=== PATIENT | female | born 1950 | race Caucasian/White ===

== ENCOUNTER → 2016-11-24 | Outpatient (REF) | payer MEDICARE, MEDICAID ==
[~2016-11-24] MED LIST: AMBI5TAB; ATEN100T; AVALIDE; AVAP300T; BABY81CH; COLA100C2; HYDR25TA6; NISOLDIPINE; PROZ20CA; SULAR; SYMVASTATIN; TENO100T; ZOCO20TA
[2016-11-24 17:25] LABS: MEAN CORPUSCULAR HGB CONC 34.2 g/dl (32.0-36.5); MEAN CORPUSCULAR VOLUME 87.6 fl (80.0-96.0); RED CELL DISTRIBUTION WIDTH 12.3 % (11.5-14.5); WHITE BLOOD COUNT 8.7 K/mm3 (4.0-10.0)
[2016-11-24 17:33] LABS: ALBUMIN 3.7 GM/DL (3.2-5.2); ALKALINE PHOSPHATASE 205 U/L (45-117); ALT/SGPT 29 U/L (12-78); ANION GAP 11 MEQ/L (8-16); AST/SGOT 25 U/L (15-37); BLOOD UREA NITROGEN 12 MG/DL (7-18); CALCIUM LEVEL 10.2 MG/DL (8.8-10.2); CARBON DIOXIDE LEVEL 27 MEQ/L (21-32); CHLORIDE LEVEL 99 MEQ/L (98-107); CHOLESTEROL LEVEL 176 MG/DL (<200); CREATININE FOR GFR 0.91 MG/DL (0.55-1.02); GLOMERULAR FILTRATION RATE > 60.0 (>45); GLUCOSE, FASTING 82 MG/DL (80-110); POTASSIUM SERUM 4.3 MEQ/L (3.5-5.1); SODIUM LEVEL 137 MEQ/L (136-145); TOTAL PROTEIN 7.4 GM/DL (6.4-8.2); TRIGLYCERIDES LEVEL 154 MG/DL (<150)
== END ==
LOC: M SFHCLERA 12:29
PROVIDERS: ATTEND Family Medicine
DX: I10 Essential (primary) hypertension (principal); R79.89 Other specified abnormal findings of blood chemistry; E55.9 Vitamin D deficiency, unspecified

== ENCOUNTER → 2016-11-24 | Outpatient (CLI) | payer MEDICARE, MEDICAID ==
--- NOTE | 2016-11-24 13:31 | REP ---
LUMBAR SPINE SERIES: SIX VIEWS. History: Worsening low back pain. No comparison radiographs. Comparison CT images are from March 14, 2015. Findings: Lumbar vertebral body heights are preserved. Pedicles and posterior elements are intact. There is degenerative disc narrowing at L4-5 and L5-S1. A grade 1 2 mm L4-5 spondylolisthesis is seen unchanged from the CT study. No evidence of spondylolysis is seen. There is mild degenerative disc changes at L3-4, L1-2, and T12-L1. There is osteoarthritic facet hypertrophy bilaterally at L4-5 and to some degree at L5-S1. Sacrum and SI joints are intact. The visualized bowel gas pattern is normal. Psoas margins are symmetric. Impression: Degenerative disc and osteoarthritic facet changes at L4-5 and L5-S1. There is a grade 1 2 mm L4-5 degenerative spondylolisthesis without spondylolysis. Signed by Silvano Rodriguez MD 11/24/2016 03:59 P
== END ==
LOC: M LRY 12:33
PROVIDERS: ATTEND Family Medicine
DX: M51.36 Other intervertebral disc degeneration, lumbar region (principal); M51.37 Other intervertebral disc degeneration, lumbosacral region; M43.16 Spondylolisthesis, lumbar region; M47.816 Spondylosis without myelopathy or radiculopathy, lumbar region; M47.817 Spondylosis without myelopathy or radiculopathy, lumbosacral region; I10 Essential (primary) hypertension; R79.89 Other specified abnormal findings of blood chemistry; E55.9 Vitamin D deficiency, unspecified

== ENCOUNTER 2016-12-27 10:53 | Inpatient (IN) | payer MEDICARE, MEDICAID ==
[~2016-12-27] VITALS: Ht 160 cm; Wt 87.1 kg
[2016-12-27 12:04] LABS: MEAN CORPUSCULAR HEMOGLOBIN 28.6 pg (27.0-33.0); MEAN CORPUSCULAR HGB CONC 34.8 g/dl (32.0-36.5); MEAN CORPUSCULAR VOLUME 81.9 fl (80.0-96.0); RED CELL DISTRIBUTION WIDTH 12.8 % (11.5-14.5); WHITE BLOOD COUNT 12.9 K/mm3 (4.0-10.0)
[2016-12-27 12:34] LABS: ALBUMIN 3.4 GM/DL (3.2-5.2); ALBUMIN/GLOBULIN RATIO 0.69 (1.00-1.93); ALKALINE PHOSPHATASE 193 U/L (45-117); ALT/SGPT 17 U/L (12-78); AST/SGOT 26 U/L (15-37); BILIRUBIN,DIRECT 0.2 MG/DL (0.0-0.2); BILIRUBIN,TOTAL 1.1 MG/DL (0.2-1.0); BLOOD UREA NITROGEN 27 MG/DL (7-18); CARBON DIOXIDE LEVEL 23 MEQ/L (21-32); CHLORIDE LEVEL 94 MEQ/L (98-107); CREATININE FOR GFR 1.31 MG/DL (0.55-1.02); GLOMERULAR FILTRATION RATE 43.4 (>45); GLUCOSE, FASTING 106 MG/DL (80-110); TOTAL PROTEIN 8.3 GM/DL (6.4-8.2)
[2016-12-27 12:53] LABS: ANION GAP 16 MEQ/L (8-16); SODIUM LEVEL 133 MEQ/L (136-145)
[2016-12-27 13:01] LABS: CALCIUM LEVEL 14.9 MG/DL (8.8-10.2)
[2016-12-27 13:24] LABS: AMPHETAMINES LEVEL URINE NEGATIVE (NEGATIVE); BENZODIAZEPINES URINE NEGATIVE (NEGATIVE); COCAINE METABOLITE URINE NEGATIVE (NEGATIVE); CONTROL LINE INT CTR LINE PRESENT; METHADONE URINE NEGATIVE (NEGATIVE); OPIATES URINE NEGATIVE (NEGATIVE); TRICYCLIC ANTIDEPRESS URINE NEGATIVE (NEGATIVE)
--- NOTE | 2016-12-27 13:35 | REP ---
CT BRAIN WITHOUT CONTRAST: 12/27/2016. Clinical history: Altered mental status. Findings: There were no prior pertinent studies ventricles are midline, symmetric and show mild dilatation of the lateral ventricles but no displacement. There is atrophy in proportion greatest in the temporal lobes and frontal lobes. I see no vascular territory infarct, hemorrhage, mass or mass effect. Basal cisterns and basal ganglia are preserved. Cortical stripe shows atrophy, but no other finding. The brainstem was unremarkable. Cerebellum intact. The mastoids and sinuses were clear. Skull base was unremarkable. The calvarium shows multiple scattered lucencies throughout with fairly sharply defined margins and some honeycomb appearance within some of the lesions, others not. Impression: 1. No intracranial hemorrhage, acute infarct, mass or edema. Some mild atrophy with ventricular size in proportion. 2. Brainstem and cerebellum intact. Basal cisterns intact with sinuses and mastoids clear. 3. There are multiple lucencies in the skull with irregular margins. These are not expansile there were no soft tissue components. Some have internal architecture. Findings may reflect myeloma, hemangioma or lytic skull metastases. No intracranial lesion or other significant finding. Evaluate for serum protein abnormalities. If elevated, bone survey may be helpful. Signed by Flaco Betts MD 12/27/2016 07:37 P
[2016-12-27] MEDS ORDERED: POTASSIUM CHLORIDE 10 MEQ SR TABLET As Ordered ONE ×2 (13:44→14:35)
[2016-12-27] MEDS ORDERED: FLUO40CA PO (14:19)
[2016-12-27] MEDS ORDERED: DRIS50002 PO (14:19)
[2016-12-27] MEDS ORDERED: ASPI1TAB PO (14:19)
[2016-12-27] MEDS ORDERED: TIZA4CAP3 PO (14:19)
[2016-12-27] MEDS ORDERED: GABA300C3 PO (14:19)
[2016-12-27] MEDS ORDERED: CALCTAB68 PO (14:19)
[2016-12-27] MEDS ORDERED: ATEN100T PO (14:19)
[2016-12-27] MEDS ORDERED: HYDR-4274 PO (14:19)
[2016-12-27] MEDS ORDERED: SIMV20TA2 PO (14:19)
[2016-12-27] MEDS ORDERED: LOSA100T36 PO (14:19)
[2016-12-27] MEDS ORDERED: ATOM60CA PO (14:19)
[2016-12-27] MEDS ORDERED: POTA20TA PO (14:19)
[2016-12-27] MEDS ORDERED: ZETI10TA2 PO (14:19)
[2016-12-27] MEDS ORDERED: FISH1000 PO (14:19)
[2016-12-27] MEDS ORDERED: AMIL5TA PO (14:19)
[2016-12-27] MEDS ORDERED: CHLO25TA PO (14:19)
[2016-12-27] MEDS ORDERED: AMLO5TAB2 PO (14:19)
[2016-12-27] MEDS ORDERED: amLODIPine 5 MG TAB As Ordered ONE (14:36)
[2016-12-27] MEDS ORDERED: ONDANSETRON 4MG/2ML VIAL (J2405) IV PRN (14:45)
[2016-12-27] MEDS ORDERED: MORPHINE 2 MG/ML 1ML SYRINGE IV PRN (14:45)
--- NOTE | 2016-12-27 14:45 | REP ---
AP PORTABLE CHEST: 12/27/2016. Clinical history: Confusion. Findings: There were no prior studies. Lungs are well inflated. There is no pleural effusion, lateral pleural thickening apical scarring or pneumothorax. Some underlying interstitial fibrotic changes mid and lower lung zones noted. Heart size not enlarged for portable technique. No pulmonary edema. No definite effusion. Visualized bones without focal lesion. Signed by Flaco Betts MD 12/27/2016 07:40 P
--- NOTE | 2016-12-27 15:10 | HPEPDOC ---
Medical History and Physical Date of Admission 12/27/16 History and Physical PRIMARY CARE PROVIDER: ATTENDING: Robles Harper M.D. CHIEF COMPLAINT: Generalized weakness and change in mental status HISTORY OF PRESENT ILLNESS: This is a 66-year-old female past medical history of hypertension, fibromyalgia , hyperlipidemia who presents with altered mental status and generalized weakness. Patient states she initially developed 5 mechanical falls 2 months ago. With no loss of consciousness. States she was doing some housework and started to develop back pain that was diffuse throughout the entire spine. No focal weakness. Patient then started to develop difficulty with mobility. She also started to complain of increased lower back pain/rib pain over the past 2 weeks , had presented to her primary doctor who prescribed gabapentin and tizanidine. Started to become increasingly lethargic with the tizanidine and gabapentin. Daughters at bedside state that over the past week the patient has been having auditory and visual hallucinations. She's been having angry outbursts. Constipated and complaining of chills. No chest pain/shortness of breath/palpitations. Nausea and nonbilious nonbloody vomiting at times. No diarrhea. Positive constipation. PAST MEDICAL HISTORY: As per HPI PAST SURGICAL HISTORY: Hysterectomy, appendectomy, tubal ligation SOCIAL HISTORY: History of tobacco abuse however quit 40 years ago. Occasional alcohol. No illicit drug use. FAMILY HISTORY: Mother with CVA father with rheumatic heart disease ALLERGIES: Please see below. REVIEW OF SYSTEMS: HEENT: Denies sore throat/headache CARDIOVASCULAR: Denies chest pain/palpitations RESPIRATORY: No shortness of breath/cough GASTROINTESTINAL: denies nausea/vomiting GENITOURINARY: Denies dysuria/urinary urgency. MUSCULOSKELETAL: Denies myalgias/arthralgias NEUROLOGICAL: Denies any focal weakness. + generalized weakness Rest of ROS negative. HOME MEDICATIONS: Please see below. PHYSICAL EXAMINATION: Vitals: (see below) General: No acute distress, laying comfortably in bed. HEENT: Dry mucous membranes. Neck: Mild JVD. No LAD. Cardiac: RRR, No murmurs Pulm: Clear to auscultation b/l. No wheezing, rhonchi Abd: NT/ND + BS Ext: No edema or cyanosis Neuro: Strength 5/5 BUE and BLE. CN 2-12 intact. Negative Babinki. DTR 2+ throughout LABORATORY DATA: See below. IMAGING: CT head on 12/27/16 Impression: 1. No intracranial hemorrhage, acute infarct, mass or edema. Some mild atrophy with ventricular size in proportion. 2. Brainstem and cerebellum intact. Basal cisterns intact with sinuses and mastoids clear. 3. There are multiple lucencies in the skull with irregular margins. These are not expansile there were no soft tissue components. Some have internal architecture. Findings may reflect myeloma, hemangioma or lytic skull metastases. No intracranial lesion or other significant finding. Evaluate for serum protein abnormalities. If elevated, bone survey may be helpful. Chest x-ray on 12/27/16 Findings: There were no prior studies. Lungs are well inflated. There is no pleural effusion, lateral pleural thickening apical scarring or pneumothorax. Some underlying interstitial fibrotic changes mid and lower lung zones noted. Heart size not enlarged for portable technique. No pulmonary edema. No definite effusion. Visualized bones without focal lesion. MICROBIOLOGY: Please see below. ASSESSMENT/PLAN: Severe hypercalcemia with psychosis and hallucinations - patient has been on calcium and vitamin D supplementation as well as chlorthalidone however states she has not taken her calcium and vitamin D and some time. There was concern for malignancy given the hypercalcemia with associated multiple lucencies within the skull. We will start normal saline IV fluids with aggressive hydration, will need calcitonin and possibly Lasix. I spoke to Dr. Negrete hole be assisting in the management this patient. We'll also obtain urine studies, SPEP and UPEP. Whole-body skeletal scan. Back pain- very nonspecific with no focal deficits on exam. Questionable whether patient has lucencies. We'll follow-up with skeletal survey. If negative, will likely need CAT scans of the spine. Hypokalemia- replaced Acute kidney injury- we'll hold losartan and chlorthalidone. IV fluids. Urine studies. Hypertension- increased amlodipine, hold losartan and chlorthalidone. Continue the rest of the meds. Nonspecific ST-T wave changes on EKG- no acute OR. We'll trend cardiac markers. No chest pain. Elevated JVD- we'll obtain echocardiogram. No history of heart failure. DVT prophylaxis- heparin subcutaneous Patient followed by Dr. Elizabeth starting 12/28/16 at 7 AM. Vital Signs Blood pressure 180/88, heart rate 89, respiratory rate 17, afebrile, oxygen saturation 97% on room air. Laboratory Data Labs 24H Laboratory Tests 2 12/27/16 11:41: Acetaminophen Level < 2.0L, Aspartate Amino Transf (AST/SGOT) 26, Alanine Aminotransferase (ALT/SGPT) 17, Alkaline Phosphatase 193H, Total Bilirubin 1.1H , Direct Bilirubin 0.2, Albumin 3.4, Albumin/Globulin Ratio 0.69L, Anion Gap 16 , Calcium Level 14.9*H, Creatine Kinase MB 1.5, Creatine Kinase MB Relative Index 2.38, Ethyl Alcohol Level < 0.003, Glomerular Filtration Rate 43.4L, Salicylates Level < 1.7L, Thyroid Stimulating Hormone (TSH) 1.630, Total Creatine Kinase 63, Total Protein 8.3H, Troponin I 0.07, Uric Acid 9.9H 12/27/16 13:05: Urine Amphetamine Level NEGATIVE, Urine Benzodiazepines Screen NEGATIVE, Urine Cannabinoids NEGATIVE, Urine Cocaine Metabolite NEGATIVE, Urine Opiates Screen NEGATIVE, Urine Barbiturates, Qualitative NEGATIVE, Urine Methadone Screen NEGATIVE, Urine Tricyclic Antidepressants NEGATIVE CBC/BMP Laboratory Tests 12/27/16 11:41 Red Blood Count 5.06, Mean Corpuscular Volume 81.9, Mean Corpuscular Hemoglobin 28.6, Mean Corpuscular Hemoglobin Concent 34.8, Red Cell Distribution Width 12.8 Home Medications Scheduled Amiloride HCl (Amiloride HCl) 5 Mg Tab 5 MG PO DAILY Amlodipine Besylate (Amlodipine Besylate) 5 Mg Tab 5 MG PO DAILY Aspirin (Aspirin 81) 81 Mg Tab 81 MG PO Q2D Atenolol (Atenolol) 100 Mg Tab 100 MG PO BID Atomoxetine Hydrochloride (Strattera) 60 Mg Cap 60 MG PO DAILY Calcium/Vitamin D (Calcium 600 + D 600-400 mg-Unit) 1 Tab Tab 2 TAB PO BID Chlorthalidone (Chlorthalidone) 25 Mg Tab 25 MG PO DAILY Ezetimibe (Zetia) 10 Mg Tab 10 MG PO QHS Fish Oil (Fish Oil) 1,000 Mg Cap 1,000 MG PO TID Fluoxetine Hcl (Fluoxetine HCl) 40 Mg Cap 40 MG PO DAILY Gabapentin (Gabapentin) 300 Mg Cap 300 MG PO QHS Losartan Potassium (Losartan Potassium) 100 Mg Tab 100 MG PO DAILY Potassium Chloride (Klor-Con M20) 20 Meq Tabcr 20 MEQ PO DAILY Simvastatin (Simvastatin) 20 Mg Tab 20 MG PO QHS Vitamin D (Drisdol) 50,000 Unit Cap 50,000 UNIT PO QWEEK Scheduled PRN Hydroxyzine HCl (Hydroxyzine HCl) 50 Mg Tab 50 MG PO TID PRN PRN ANXIETY Tizanidine Hydrochloride (Tizanidine HCl) 4 Mg Cap 4 MG PO Q8H PRN PRN SPASMS Allergies Coded Allergies: Metronidazole (Verified Allergy, Unknown, 02/16/13) Sulfa Drugs (Unverified Allergy, Unknown, 02/16/13) ROBLES HARPER MD Dec 27, 2016 15:10 ROBLES HARPER MD Dec 27, 2016 15:10
[2016-12-27] MEDS ORDERED: FUROSEMIDE 40 MG/4 ML VIAL (J1940) IV ONE (15:30)
[2016-12-27] MEDS ORDERED: **hydrALAZINE** 50 MG TAB PO ONE (15:30)
[2016-12-27] MEDS ORDERED: hydrALAZINE INJ 20 MG/ML VIAL IV ONE (15:30)
[2016-12-27 15:31] LABS: IONIZED CALCIUM 7.2 MG/DL (4.5-5.3)
[2016-12-27 16:09] LABS: TOTAL PROTEIN 7.4 GM/DL (6.4-8.2)
[2016-12-27] MEDS ORDERED: hydrALAZINE INJ 20 MG/ML VIAL IV PRN (16:45)
[2016-12-27] MEDS ORDERED: ZOLEDRONIC ACID IV ONE (17:00)
[2016-12-27] MEDS ORDERED: DILUENT IV ONE (17:00)
[2016-12-27 17:15] VITALS: BP 138/71
[2016-12-27 17:22] LABS: CREATININE FOR GFR 1.17 MG/DL (0.55-1.02); GLOMERULAR FILTRATION RATE 49.4 (>45); POTASSIUM SERUM 3.4 MEQ/L (3.5-5.1)
[2016-12-27 17:27] LABS: CALCIUM LEVEL 14.9 MG/DL (8.8-10.2)
[2016-12-27] MEDS: KCL 20MEQ in NS 1000ML 1,000 ML IV SCH (18:00)
[2016-12-27] MEDS ORDERED: ZOLEDRONIC ACID 4 MG in D5W 100 ML IV ONE (18:00)
[2016-12-27] MEDS ORDERED: SODIUM CHLORIDE 0.9% 1000 ML IV ONE (18:00)
[2016-12-27] MEDS ORDERED: KCL 20MEQ IN 0.9 NS 1000 ML BAG As Ordered ONE (18:18)
[2016-12-27 19:00] VITALS: BP 142/68
--- NOTE | 2016-12-27 20:42 | CR ---
DATE OF CONSULTATION: 12/27/2016 REQUESTING PHYSICIAN: Dr. Eduard Harper CONSULTING PHYSICIAN: Dr. Negrete REASON FOR CONSULTATION: Acute kidney injury, hypercalcemia, and hypokalemia. CHIEF COMPLAINT: Generalized weakness and altered mental status. HISTORY OF PRESENT ILLNESS: History was obtained from the medical team and from the patient's chart. The patient is unable to provide any reliable history at this time. Ms. Katlin Cates is a 66-year-old female with a past medical history of hypertension, fibromyalgia, hyperlipidemia. She was brought in by the family members today because of progressive confusion, some auditory and visual hallucinations, constipation, having angry outbursts for the last few days. She was also having chills. The patient also reported severe upper back pain for the last two weeks almost, which is progressively getting worse. She was unable to move around at this time because of this pain. She was also given gabapentin and tizanidine by the primary care provider, which was not helping with the pack pain. The patient also reported about five mechanical falls about two months ago. The patient denies any history of malignancy. She is not up to date for her age appropriate cancer screening. She has not had a mammogram, Pap smear, or any body imaging in many years. On initial triage laboratories, the patient was found to have a sodium of 133, potassium 3, and serum calcium was 14.9 with an ionized calcium of 7.2. A CAT scan done in the emergency room showed multiple lucencies in the skull with irregular margins, suspicious for malignancy. Nephrology service consult was requested for management of acute renal failure and hypercalcemia. The patient has been started on intravenous fluid hydration. When I saw the patient, she was awake. She tries to respond to some questions. She is otherwise in no apparent distress at this time. PAST MEDICAL HISTORY: As mentioned above, she has a history of: 1. Hypertension. 2. Fibromyalgia. 3. Hyperlipidemia. PAST SURGICAL HISTORY: Status post hysterectomy, appendectomy, and tubal ligation in the past. ALLERGIES: The patient is allergic to SULFA DRUGS and FLAGYL. HOME MEDICATIONS: The patient's home medications include: - amiloride 5 mg by mouth daily - amlodipine 5 mg daily - aspirin 81 mg daily - atenolol 100 mg twice a day - atomoxetine 60 mg daily - calcium plus vitamin D two tablets by mouth twice a day - chlorthalidone 25 mg by mouth daily - Zetia 10 mg by mouth at night - fish oil 1 gram by mouth three times a day - fluoxetine 40 mg daily - gabapentin 300 mg at night - hydroxyzine 50 mg three times a day as needed - losartan 100 mg by mouth daily - potassium chloride 20 mEq by mouth daily - simvastatin 20 mg by mouth at night - tizanidine 4 mg by mouth every 4 hours as needed - vitamin D 50,000 units once a week FAMILY HISTORY: No significant family history of end stage renal disease requiring hemodialysis. Her mother had a stroke and her father had rheumatic artery disease. SOCIAL HISTORY: The patient quit smoking 40 years ago. Denies any alcohol abuse or drug abuse. REVIEW OF SYSTEMS: CONSTITUTIONAL: The patient reports generalized weakness, inability to walk because of severe pain. EYES: She denies any blurry vision or double vision. ENT: She denies any dysphagia or odynophagia or ear discharge. CARDIOVASCULAR: She denies any chest pain or palpitations. RESPIRATORY: She denies any shortness of breath or wheezing. GASTROINTESTINAL: The patient reports constipation and decreased appetite. GENITOURINARY: She denies any dysuria or hematuria. MUSCULOSKELETAL: The patient reports muscle aches and pains and weakness. NEUROLOGIC: The patient denies any history of strokes, but she did report generalized weakness. PSYCHIATRIC: The patient has a history of depression and outbursts. HEMATOLOGIC/ONCOLOGIC: The patient denies any history of malignancy in the past. SKIN: She denies any history of rashes or ulcers. All other review of systems is negative. PHYSICAL EXAMINATION: GENERAL: The patient is awake, alert, oriented times two. Sitting in bed in no apparent distress. VITAL SIGNS: Temperature is 99 degrees Fahrenheit. Blood pressure is 138/71, pulse is 82, respiratory rate of 18, saturating 98% on room air. HEAD AND NECK EXAM: Extraocular muscles intact. Pupils are equal, round and reactive to light. Mucous membranes are dry. NECK: Supple. There is no jugular venous distention (JVD). CARDIOVASCULAR: S1, S2. Regular rate. No murmur, rub or gallop. RESPIRATORY: Chest is clear to auscultation bilaterally. Bilateral equal air entry. No rales or rhonchi. BREAST EXAM: The patient's breast exam was done in the presence of the patient' s registered nurse. There was slight erythema on the left breast, otherwise no significant breast masses were palpable. ABDOMEN: Soft. Positive bowel sounds. Nontender. No ascites. No organomegaly. EXTREMITIES: No clubbing or cyanosis. No edema. NEUROLOGIC: Power is 5/5 in all extremities, but the patient is slightly confused at this time. SKIN: No rashes or ulcers. LABORATORY REVIEW: Complete blood count (CBC) showed a WBC of 12.9, hemoglobin 14.4, platelets of 367. Basic metabolic panel (BMP) showed sodium 133, potassium 3.0, chloride 94, bicarbonate 23, BUN is 27, creatinine is 1.31, uric acid is 9.9, calcium is 14.1 , ionized calcium was 7.2. Total bilirubin is 1.1. Total protein is 8.3. Albumin is 3.4. Vitamin D is pending. TSH is 1.63, PTH is pending. Urine toxicology screen is negative. IMAGING: A CAT scan of the head done today showed no intracranial hemorrhage, infarct or mass. There were multiple lucencies in the skull with irregular margins, which was suspicious for multiple myeloma or lytic skull metastases. CURRENT INPATIENT MEDICATIONS: The patient's current inpatient medications were all reviewed by me. ASSESSMENT: 66-year-old female with a past medical history of hypertension, fibromyalgia, hyperlipidemia, admitted this time with psychosis, hallucinations, severe hypercalcemia with possible malignancy given her recent CAT scan findings. Nephrology service following the patient for acute kidney injury and hypercalcemia. PLAN: 1. Hypercalcemia. Although the patient was on diuretics, calcium and vitamin D supplements, as reported by the family, the patient was not taking the vitamin D can calcium at this time. Given the patient's severe hypercalcemia and the presence of translucencies on the CAT scan of the head, malignancy is highly likely. I am going to start the patient on normal saline at 200 mL an hour plus 20 mEq of KCL. I will not give Lasix to this patient at this time because of dehydration and dry mucous membranes. Continue BMP every 6 hours. I am also starting calcitonin 350 International Units subcutaneous every 12 hours, and I will given a dose of zoledronic acid 4 mg IV times one dose to this patient as well. I see that the primary team has already ordered the SPEP and UPEP, which are pending. PTH level and vitamin D levels are still pending as well. 2. Acute kidney injury. Acute kidney injury is secondary to hypercalcemia and dehydration and use of losartan at home. Losartan has been held at this time. Continue the IV fluid hydration. 3. Hypokalemia. Hypokalemia is secondary to dehydration and use of diuretics at home. I have added the potassium to IV fluids that the patient will get. No need for oral potassium at this time. The patient has already been given potassium chloride 40 mEq by mouth by the primary team. 4. Hyperuricemia. There is no history of gout in this patient. Hyperuricemia might be secondary to dehydration and possible malignancy as well. Uric acid level is 9.9. I will not start Uloric at this time; however, if the malignancy is confirmed and we start treatment for malignancy in this patient then we might have to start uric acid lowering therapy in this patient. 5. Hypertension. The patient's manual and automatic machine blood pressures defer. I recommend continue monitoring the manual blood pressure on this patient, which is acceptable at this time. Continue to hold losartan for now. Continue amlodipine 10 mg by mouth daily, atenolol 100 mg by mouth twice a day, hydralazine 25 mg by mouth every 8 hours. I have also ordered hydralazine 10 mg IV every 6 hours as needed for systolic blood pressure more than 170. Thank you for involving us in the care of this patient. We shall be happy to follow the patient along with you tomorrow morning. Plan of care was discussed with the patient's RN at the bedside. I will be called with serial BMPs on this patient. I also discussed the patient with the primary hospitalist, Dr. Eduard Harper. MELA
[2016-12-27 21:00] VITALS: BP 132/78
[2016-12-27] MEDS ORDERED: **hydrALAZINE HCL** 25 MG TAB As Ordered ONE (21:01)
[2016-12-27] MEDS: SIMVASTATIN 20 MG TAB PO SCH (21:16)
[2016-12-27] MEDS: ATENOLOL 50 MG TAB PO SCH (21:16)
[2016-12-27] MEDS: CALCITONIN SALMON (MIACALCIN) 400INTERNATIONAL UNITS/2ML INJ (J0630) SQ SCH (21:16)
[2016-12-27] MEDS: **hydrALAZINE HCL** 25 MG TAB PO SCH (21:17)
[2016-12-27] MEDS: OMEGA-3 1050MG CAPSULE PO SCH (21:17)
[2016-12-27] MEDS: EZETIMIBE 10 MG TAB (ZETIA) PO SCH (21:17)
[2016-12-27 23:35] LABS: CALCIUM LEVEL 13.1 MG/DL (8.8-10.2); CREATININE FOR GFR 1.05 MG/DL (0.55-1.02); POTASSIUM SERUM 3.4 MEQ/L (3.5-5.1)
[2016-12-28] VITALS (7 sets, daily range): BP systolic 144–178; BP diastolic 70–89; PULSE 80–82
[2016-12-28] MEDS ORDERED: KCL 20MEQ IN 0.9 NS 1000 ML BAG As Ordered ONE (00:38)
[2016-12-28] MEDS: KCL 20MEQ in NS 1000ML 1,000 ML IV SCH ×5 (00:40→20:34)
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
--- NOTE | 2016-12-28 02:43 | EDDOCDS ---
Physician Documentation [facility] Name: Katlin Cates Age: 66 yrs Sex: Female : 1950 Arrival Date: 12/27/2016 Time: 10:53 Bed Admit Hold Private MD: Disposition: 12/27/16 13:45 Hospitalization ordered by Eduard Harper for Inpatient Admission. Preliminary diagnosis is Altered mental status, unspecified - with abnormal CT head. - Bed requested for PCU. - Status is Inpatient Admission. sls1 - Condition is Stable. - Problem is new. - Symptoms are unchanged. Historical: - Allergies: Flagyl; SULFA (SULFONAMIDES); - Home Meds: 1. aspirin 81 mg Oral tab 1 tab once daily 2. Fish Oil 1,000 mg Oral cap three times a day 3. potassium chloride 20 mEq Oral TbER 1 tab once daily 4. Zocor 20 mg Oral tab 1 tab once daily 5. Calcium + Vitamin D 600 mg calcium- 200 unit Oral tab 2 tab twice a day 6. Strattera 60 mg oral cap 1 cap once daily 7. hydroxyzine HCl 50 mg Oral tab 1 tab three times a day as needed 8. chlorthalidone 25 mg Oral tab 1 tab once daily 9. amiloride 5 mg oral tab 1 tab once daily 10. atenolol 100 mg Oral tab 1 tab twice a day 11. losartan 100 mg oral tab 1 tab once daily 12. fluoxetine 40 mg Oral cap 1 cap once daily 13. Norvasc 5 mg Oral tab 1 tab once daily 14. Zetia 10 mg Oral tab 1 tab once daily 15. gabapentin 300 mg Oral cap 1 cap twice a day 16. Vitamin D Oral 50,000 unit weekly 17. tizanidine 4 mg oral tab 1 tab every 8 hours - PMHx: Hypertension; Hypercholesterolemia; Depression; Anxiety; Fibromyalgia; ADHD; - PSHx: Hysterectomy; Appendectomy; Tubal ligation; - Social history: Smoking status: Patient states former smoker of tobacco. No barriers to communication noted, The patient speaks fluent Romanian, Speaks appropriately for age. - : The pt / caregiver states he / she is not on anticoagulants. Home medication list is obtained from a discharge med list. - Exposure Risk Screening:: None identified. Vital Signs: 12/27 11:05 BP 180 / 88; Pulse 89; Resp 18; Temp 97.6(O); Pulse Ox 97% on R/A; Weight 88 kg / kc3 194.01 lbs (R); Height 5 ft. 6 in. (167.64 cm); Pain 0/10; 11:17 BP 181 / 87 (auto/); hs1 11:17 Pulse 80 MON; Pulse Ox 99% ; hs1 11:32 BP 166 / 85 (auto/); hs1 11:32 Pulse 80 MON; Pulse Ox 99% ; hs1 11:47 BP 173 / 84 (auto/); hs1 11:47 Pulse 74 MON; Pulse Ox 98% ; hs1 12:02 BP 169 / 81 (auto/); hs1 12:02 Pulse 78 MON; Pulse Ox 99% ; hs1 12:16 Pulse 78 MON; Pulse Ox 98% ; hs1 12:17 BP 169 / 81 (auto/); hs1 12:31 Pulse 72 MON; Pulse Ox 98% ; hs1 12:32 BP 166 / 78 (auto/); hs1 12:43 Pulse 82 MON; Pulse Ox 97% ; hs1 13:01 BP 188 / 87 (auto/); hs1 13:31 BP 170 / 83 (auto/); hs1 13:31 Pulse 78 MON; Pulse Ox 95% ; hs1 14:01 BP 185 / 88 (auto/); hs1 14:01 Pulse 80 MON; Pulse Ox 100% ; hs1 14:30 Pulse 76 MON; Pulse Ox 98% ; hs1 14:31 BP 198 / 90 (auto/); hs1 15:00 Pulse 74 MON; Pulse Ox 97% ; hs1 15:01 BP 197 / 132 (auto/); hs1 15:17 Pulse 80 MON; Pulse Ox 99% ; hs1 15:18 BP 171 / 80 (auto/); hs1 15:30 Pulse 70 MON; Pulse Ox 97% ; hs1 15:31 BP 182 / 86 (auto/); hs1 16:00 Pulse 76 MON; Pulse Ox 98% ; hs1 16:01 BP 182 / 81 (auto/); hs1 16:12 BP 156 / 78 LA (man/lg); rn1 17:14 Temp 99.0(T); rn1 12/28 01:07 BP 146 / 80; Pulse 75; Resp 18; Temp 97.9; Pulse Ox 96% on R/A; [facility] 12/27 11:05 Body Mass Index 31.31 (88.00 kg, 167.64 cm) kc3 MDM: 12/27 11:11 Consult PFS/PSA/Open Soaper Tender ordered. ml 11:11 Consult PFS/PSA/Open Soaper Tender: Patient's case requires discussion with on-call ml Psychiatrist ordered. 11:11 PSA/PFS to call Nursing Forest Management Professor, to enter patient data on [place] Safe [place] if patient ml involuntarily admitted or transferred for SI or HI ordered. 11:11 Reach Lift Truck Driver/Pulse Ox/q 15 min VS ordered. ml 11:11 Confirm accurate psychiatric medication list and times of last dosage ordered. ml 11:11 Detain Pt Until Medically/PFS Cleared ordered. ml 11:11 IV Saline Lock ordered. ml 11:11 Rhythm Strip to chart ordered. ml 11:12 Acetaminophen Level Ordered. EDMS 11:12 Basic Metabolic Profile Ordered. EDMS 11:12 Complete Blood Count Ordered. EDMS 11:12 Drug Eval Toxicology ED Only Ordered. EDMS 11:12 Ethyl Alcohol (ethanol) Ordered. EDMS 11:12 Liver Profile Ordered. EDMS 11:12 Salicylate Level Ordered. EDMS 11:12 Thyroid Stimulating Hormone Ordered. EDMS 11:12 ECG WITH READING ER PHYS+CARDIAG ordered. EDMS 11:12 CT Head Without Contrast Ordered. EDMS 11:27 Financial registration complete. mm15 11:40 Call Poison Control ordered. ml 11:54 [facility] Payment Agreement was scanned into [employer] and attached to record. mm15 12:14 CARDIAC INJURY PROFILE Ordered. EDMS 12:14 TROPONIN Ordered. EDMS 13:18 Acetaminophen Level Reviewed. ml 13:18 Basic Metabolic Profile Reviewed. ml 13:18 Complete Blood Count Reviewed. ml 13:18 Liver Profile Reviewed. ml 13:18 Salicylate Level Reviewed. ml 13:18 Ethyl Alcohol (ethanol) Reviewed. ml 13:18 Thyroid Stimulating Hormone Reviewed. ml 13:18 CARDIAC INJURY PROFILE Reviewed. ml 13:18 TROPONIN Reviewed. ml 13:19 Potassium Chloride Extended Release Tablet 40 mEq PO once ordered. ml 13:22 Chest, 1 View Ordered. EDMS 13:22 Uric Acid Ordered. EDMS 13:27 BED REQUEST+ADM ordered. EDMS 13:50 Potassium Chloride Extended Release Tablet 40 mEq PO once ordered. hs1 14:47 PTH INTACT Ordered. EDMS 14:47 IONIZED CALCIUM Ordered. EDMS 14:47 URINE PROTEIN ELECTROPHORESIS Ordered. EDMS 14:47 SERUM PROTEIN ELECTROPHORESIS Ordered. EDMS 14:47 URINE CALCIUM 24 HOUR Ordered. EDMS 14:47 URINE CREATININE 24 HOUR Ordered. EDMS 14:48 THYROID STIMULATING HORMONE Ordered. EDMS 14:48 VIT D 1,25 DIHYDROXY Ordered. EDMS 14:48 Bone Survey Adult, ? Mets Ordered. EDMS 14:49 Admission / Observation Status ordered. EDMS 14:49 ECHOCARD,DOPPLER/COLOR FLOW ordered. EDMS 14:49 2 GRAM SODIUM DIET ordered. EDMS 14:57 URINALYSIS Ordered. EDMS 14:57 SODIUM,RANDOM URINE Ordered. EDMS 14:57 CREATININE,RANDOM URINE Ordered. EDMS 14:57 CALCIUM,RANDOM URINE Ordered. EDMS 14:57 BASIC METABOLIC PROFILE Ordered. EDMS 14:57 BASIC METABOLIC PROFILE Ordered. EDMS 15:35 Uric Acid Reviewed. ml 15:35 Drug Eval Toxicology ED Only Reviewed. ml 15:35 CT Head Without Contrast Reviewed. ml 15:35 Chest, 1 View Reviewed. ml 19:30 BASIC METABOLIC PROFILE Ordered. EDMS 19:30 BASIC METABOLIC PROFILE Ordered. EDMS 19:30 BASIC METABOLIC PROFILE Ordered. EDMS 19:31 BASIC METABOLIC PROFILE Ordered. EDMS 22:28 T-Sheet-- Draft Copy was scanned into [employer] and attached to record. klr 12/28 01:17 PSA/PFS to call Nursing Forest Management Professor, to enter patient data [place] Safe [place] if patient jfb involuntarily admitted or transferred for SI or HI complete. 01:17 Consult PFS/PSA/Open Soaper Tender complete. jfb 01:17 Consult PFS/PSA/Open Soaper Tender: Patient's case requires discussion with on-call b Psychiatrist complete. Administered Medications: 12/27 13:50 Drug: Potassium Chloride 40 mEq [potassium chloride ER 10 mEq tablet,extended release hs1 (4 tabs)] Route: PO; Signatures: Dispatcher [employer] EDOR Theresa Courtney MD MD ml Quesen[facility], Deborah, RN RN daq Youngs, David RN RN Jennie Barrera, PSA PSA jfb Michelle Ghosh RN RN hs1 Jennifer Gastelum RN RN [facility] June Chung 15 Beth Marks r The chart was reviewed and I authenticate all verbal orders and agree with the evaluation and treatment provided.Corrections: (The following items were deleted from the chart) 12:13 12:09 CARDIAC INJURY PROFILE+LAB ordered. EDMS EDMS 12:13 12:09 TROPONIN+LAB ordered. EDMS EDMS 15:00 14:57 UREA NITROGEN,RANDOM URINE ordered. EDMS EDMS Attachments: 11:54 [facility] Payment Agreement mm15 22:28 T-Sheet-- Draft Copy klr MTDD
[2016-12-28 05:39] LABS: ANION GAP 10 MEQ/L (8-16); BLOOD UREA NITROGEN 18 MG/DL (7-18); CALCIUM LEVEL 12.3 MG/DL (8.8-10.2); CARBON DIOXIDE LEVEL 24 MEQ/L (21-32); CHLORIDE LEVEL 106 MEQ/L (98-107); CREATININE FOR GFR 0.97 MG/DL (0.55-1.02); GLOMERULAR FILTRATION RATE > 60.0 (>45); GLUCOSE, FASTING 99 MG/DL (80-110); POTASSIUM SERUM 3.5 MEQ/L (3.5-5.1); SODIUM LEVEL 140 MEQ/L (136-145)
[2016-12-28] MEDS: **hydrALAZINE HCL** 25 MG TAB PO SCH ×3 (05:45→20:33)
--- NOTE | 2016-12-28 06:28 | ECGEPIP ---
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
[2016-12-28] MEDS ORDERED: KCL 20MEQ in NS 1000ML 1,000 ML IV SCH (07:45)
--- NOTE | 2016-12-28 08:44 | IPNPDOC ---
Subjective General Date Seen The patient was seen on 12/28/16. Subjective Chief Complaint/HPI The patient is a 66-year-old female admitted with a reason for visit of Hypercalcemia; Psychosis. Events since last encounter Quite agitated with paranoid delusions and visual hallucinations. Refusing physical examination. General: Denies: Chills, Fatigue, Malaise, Night Sweats, Normal Appetite, Other Symptoms, ROS Unobtainable Constitutional: Denies: Chills, Fatigue, Fever, Lethargy, Malaise, Night Sweats , Other, Weakness, Weight Loss Eyes: Denies: Conjunctivae inflammation, Eyelid inflammation, Other, Pain, Redness, Vision change ENT: Denies: Dysphagia, Ear Pain, Epistaxis, Head Aches, Other Symptoms, Post Nasal Drip, Sinus Congestion, Sore Throat Skin: Denies: Breakdown, Bruising, Dry, Itching, Jaundice, Lesions, Nail Changes, Other, Rash Pulmonary: Denies: Cough, Dyspnea, Other Symptoms, Pleuritic Chest Pain Cardiovascular: Denies: Chest Pain, Edema, Lt Headedness, Orthopnea, Other Symptoms, Palpitations, Paroxysmal Noc. Dyspnea Gastrointestinal: Denies: Abdominal Pain, Constipation, Diarrhea, Hematochezia , Melena, Nausea, Other Symptoms, Vomiting Genitourinary: Denies: Dysuria, Frequency, Hematuria, Incontinence, Other Symptoms, Retention Hematologic: Denies: Bleeding Excessively, Bruising, Enlarged Lymph Nodes, Other Hematologic, Petecchia, Purpura Endocrine: Denies: Cold Intolerance, Heat Intolerance, Other Endocrine Sx, Polydipsia, Polyphagia, Polyuria Musculoskeletal: Denies: Arm Pain, Back Pain, Foot Pain, Hand Pain, Joint Pain , Leg Pain, Muscle Pain, Neck Pain, Other Symptoms, Shoulder Pain, Spasms Objective Physical Examination General Exam: Positive: Alert, Mild Distress, Negative: Cooperative Assessment /Plan Problems Problems: (1) Hypercalcemia Status: Acute Discussed With: Coin Box Collector, Patient, Health Care Proxy, Family with Pt Consent Problem Specific Plan: Consult Specialist, Monitor Clinically, Repeat Labs, Repeat Tests Problem Text: IV fluids, calcitonin, zoledronic acid. Serial BMPs. High suspicion for malignancy given results of bone scan, hypercalcemia and hyperuricemia. SPEP/UPEP pending. No family history of malignancy as per daughter and patient. Patient is agitated and refusing some treatments. Daughter Aydee may come in today to encourage compliance. Nephrology consultation appreciated. (2) Psychosis Status: Acute Discussed With: Patient, Health Care Proxy, Family with Pt Consent Problem Specific Plan: Monitor Clinically, Repeat Labs, Repeat Tests Problem Text: Discussed with jessica Bajwa over the telephone. Her symptoms of psychosis developed over the last week. Family thought possibly due to recent medications started about 3 weeks ago for 2 month history of back pain and falls. 1:1 sitter. (3) HAYDEE (acute kidney injury) Status: Acute Discussed With: Coin Box Collector, Patient, Family with Pt Consent Problem Specific Plan: Consult Specialist, Repeat Labs, Repeat Tests Problem Text: Likely secondary to hypercalcemia. Will attempt IV fluids. Patient refusing some treatments and is agitated. Hold nephrotoxic medications. (4) HTN (hypertension) Status: Chronic Discussed With: Patient Problem Specific Plan: Monitor Clinically Problem Text: Norvasc, atenolol, hydralazine scheduled and prn. ARB on hold secondary to HAYDEE. (5) Hyperlipidemia Status: Chronic (6) Fibromyalgia Status: Chronic Discussed With: Patient (7) Falls Status: Acute Discussed With: Patient, Family with Pt Consent Problem Specific Plan: Monitor Clinically, Repeat Labs, Repeat Tests Plan/VTE VTE Prophylaxis Ordered?: Yes Plan/Urinary Catheter Reason for insertion/continuin: Critical Pt monitoring Plan IVF: Continue Diet: Continue Current Activity: Continue Current Diagnostics: Repeat Labs in AM Anticipated Discharge: Home, Home With Services VS, I&O, 24H, Hernandez Vital Signs/I&O Vital Signs Date Time Temp Pulse Resp B/P Pulse Ox O2 Delivery O2 Flow Rate FiO2 12/28/16 05:45 152/70 12/28/16 04:00 Room Air 12/28/16 04:00 97.0 80 18 94 I&O- Last 24 Hours up to 6 AM 12/28/16 06:00 Intake Total 105 ml Output Total 2150 ml Balance -2045 ml Laboratory Data 24H LABS Laboratory Tests 2 12/27/16 11:41: Acetaminophen Level < 2.0L, Aspartate Amino Transf (AST/SGOT) 26, Alanine Aminotransferase (ALT/SGPT) 17, Alkaline Phosphatase 193H, Total Bilirubin 1.1H , Direct Bilirubin 0.2, Albumin 3.4, Albumin/Globulin Ratio 0.69L, Anion Gap 16 , Calcium Level 14.9*H, Creatine Kinase MB 1.5, Creatine Kinase MB Relative Index 2.38, Ethyl Alcohol Level < 0.003, Glomerular Filtration Rate 43.4L, Salicylates Level < 1.7L, Thyroid Stimulating Hormone (TSH) 1.630, Total Creatine Kinase 63, Total Protein 8.3H, Troponin I 0.07, Uric Acid 9.9H 12/27/16 13:05: Urine Amphetamine Level NEGATIVE, Urine Benzodiazepines Screen NEGATIVE, Urine Cannabinoids NEGATIVE, Urine Cocaine Metabolite NEGATIVE, Urine Opiates Screen NEGATIVE, Urine Barbiturates, Qualitative NEGATIVE, Urine Methadone Screen NEGATIVE, Urine Tricyclic Antidepressants NEGATIVE 12/27/16 15:19: Thyroid Stimulating Hormone (TSH) 1.790, Total Protein 7.4, Whole Blood Ionized Calcium 7.2*H 12/27/16 16:44: Anion Gap 13, Calcium Level 14.9*H, Glomerular Filtration Rate 49.4, Blood Urea Nitrogen 26H, Creatinine 1.17H, Sodium Level 134L, Potassium Level 3.4L, Chloride Level 94L, Carbon Dioxide Level 27 12/27/16 19:22: Urine Amorphous Sediment , Urine Appearance CLEAR, Urine Color STRAW, Urine pH 6.0, Urine Specific [place] 1.004, Urine Protein NEGATIVE, Urine Glucose (UA) NEGATIVE, Urine Ketones TRACEH, Urine Urobilinogen 0.2, Urine Bilirubin NEGATIVE , Urine Leukocyte Esterase NEGATIVE, Urine Bacteria (Auto) NEGATIVE, Urine Blood 1+H, Urine Calcium Carbonate Cryst(Auto) , Urine Calcium Oxalate Cryst ( Auto) , Urine Calcium Phosphate Raisa (Auto) , Urine Cellular Casts , Urine Cystine Crystals , Urine Granular Casts (Auto) , Urine Hyaline Casts (Auto) 0, Urine Leucine Crystals , Urine Mucus (Auto) , Urine Nitrite NEGATIVE, Urine Oval Fat Bodies (Auto) , Urine RBC (Auto) 2, Urine Random Calcium 14.8, Urine Random Creatinine 35.5, Urine Random Sodium 30, Urine Renal Epithelial Cells , Urine Sperm (Auto) , Urine Squamous Epithelial Cells 0, Urine Transitional Epithelial Cells , Urine Trichomonas (Auto) , Urine Triple Phosphate Cryst (Auto ) , Urine Tyrosine Crystals , Urine Uric Acid Crystals (Auto) , Urine WBC (Auto ) 3, Urine Waxy Casts (Auto) , Urine Yeast-Like Cells (Auto) 12/27/16 23:03: Anion Gap 10, Blood Urea Nitrogen 21H, Creatinine 1.05H, Sodium Level 137, Potassium Level 3.4L, Chloride Level 103, Carbon Dioxide Level 24, Calcium Level 13.1H, Glomerular Filtration Rate 56.0 12/28/16 05:09: Anion Gap 10, Blood Urea Nitrogen 18, Creatinine 0.97, Sodium Level 140, Potassium Level 3.5, Chloride Level 106, Carbon Dioxide Level 24, Calcium Level 12.3H, Glomerular Filtration Rate > 60.0 CBC/BMP Laboratory Tests 12/27/16 11:41 Red Blood Count 5.06, Mean Corpuscular Volume 81.9, Mean Corpuscular Hemoglobin 28.6, Mean Corpuscular Hemoglobin Concent 34.8, Red Cell Distribution Width 12.8 12/27/16 16:44 Calcium Level 14.9 *H 12/27/16 23:03 Calcium Level 13.1 H 12/28/16 05:09 Calcium Level 12.3 H KARINA DOSHI MD Dec 28, 2016 08:44
[2016-12-28] MEDS: amLODIPine 10 MG TAB PO SCH (09:00)
[2016-12-28] MEDS: OMEGA-3 1050MG CAPSULE PO SCH ×3 (09:00→20:31)
[2016-12-28] MEDS: ATENOLOL 50 MG TAB PO SCH ×2 (09:00→20:32)
[2016-12-28] MEDS: CALCITONIN SALMON (MIACALCIN) 400INTERNATIONAL UNITS/2ML INJ (J0630) SQ SCH (09:00)
[2016-12-28] MEDS: ASPIRIN 81 MG ENTERIC TAB PO SCH (09:00)
[2016-12-28] MEDS: FLUoxetine 20 MG CAP PO SCH (09:00)
--- NOTE | 2016-12-28 09:10 | REP ---
BONE SURVEY ADULT: 12/27/2016. Clinical history: Abnormal calvarium and CT brain today. Multiple lytic lesions. Hypercalcemia. Comparison CT brain today, CT abdomen and pelvis 03/14/2015, lumbar x-rays 11/24/2016. Findings: AP lateral skull: Innumerable irregular lucencies in the calvarium on the frontal and lateral views. No evidence in the upper cervical spine or mandible. AP lateral cervical spine: No compression deformity of destructive lesion. Degenerative disc changes noted. AP and lateral thoracic spine: Marginal osteophytes mid and lower thoracic spine without destructive lesion or compression deformities. The pedicles, spinous and transverse processes intact. Medial clavicles intact. Lucency in the mid shaft right clavicle noted that may reflect a lytic lesion. AP chest: Bone technique used for the chest show multiple ribs with expansile lesions not visible on the portable chest today. These are highly suspicious for multiple metastatic foci. Subtle lucency midshaft right clavicle also not visible on portable chest. The bilateral scapulae and humeral heads were unremarkable. AP lateral thoracic spine: Vertebral body heights intact. There is facet arthritis lower lumbar spine and disc space narrowing at L5-S1. No lytic or destructive lesions of the lumbar spine noted. AP pelvis: Subtle scattered lucencies over acetabuli, ischia, and peripheral aspect of the iliac wings. Some in the hips suggested as well suspicious for metastatic lesions. Right humerus: That portion of lateral clavicles, scapula and humerus visible are without lytic or destructive lesion. No fracture. Left humerus: That portion of ribs, clavicle, scapula and humerus without lytic or destructive lesion. Some soft tissue calcification adjacent to the acromion and humeral head. Right femur: Subtle lucencies in the inferior pubic rami and hip as well as proximal. Trochanteric femoral shaft. The mid to distal shaft appeared intact. Left femur: Some lucencies scattered in the acetabulum, lateral iliac bone, ischia, hip and minimally to the subtrochanteric femur suspicious for metastatic disease. The mid to distal shaft and knee region are without lesions. Impression: 1. Lucencies in the calvarium, pelvis, hips, proximal subtrochanteric femoral shafts and ribs noted suspicious for metastatic disease. A variety of possibilities including breast cancer, lung cancer, thyroid, kidney or ovarian malignancies and if the circumstances are appropriate clinically consider myeloma. Signed by Flaco Betts MD 12/28/2016 06:53 P
[2016-12-28 09:17] LABS: MAGNESIUM LEVEL 1.4 MG/DL (1.8-2.4); PHOSPHORUS LEVEL 0.9 MG/DL (2.5-4.9); URIC ACID 8.7 MG/DL (2.6-6.0)
[2016-12-28] MEDS ORDERED: MAG SULF 1GM/100ML (MAG RUN) 1 GM in APPROPRIATE DILUENT 1 EA IV ONE ×2 (10:15→23:00)
[2016-12-28 11:37] LABS: MEAN CORPUSCULAR HEMOGLOBIN 28.7 pg (27.0-33.0); MEAN CORPUSCULAR HGB CONC 34.4 g/dl (32.0-36.5); MEAN CORPUSCULAR VOLUME 83.5 fl (80.0-96.0); RED CELL DISTRIBUTION WIDTH 13.3 % (11.5-14.5); WHITE BLOOD COUNT 11.6 K/mm3 (4.0-10.0)
[2016-12-28 11:43] LABS: CALCIUM LEVEL 11.1 MG/DL (8.8-10.2); CREATININE FOR GFR 0.99 MG/DL (0.55-1.02); GLOMERULAR FILTRATION RATE 59.9 (>45); POTASSIUM SERUM 3.4 MEQ/L (3.5-5.1)
[2016-12-28 11:57] LABS: BANDS 2 % (< 11)
[2016-12-28 11:58] LABS: ANISOCYTOSIS 1+
[2016-12-28] MEDS ORDERED: POTASSIUM PHOSPHATE INJ 30 MMOL in D5W 500 ML IV ONE (12:00)
--- NOTE | 2016-12-28 14:56 | IPN ---
DATE: 12/28/2016 SUBJECTIVE: The patient was seen and examined at the bedside today in the morning. I was informed by the nurses that she was very agitated. She was refusing her medications. She actually got her IV fluid discontinued as well. When I saw the patient in the room, she was accompanied by her two daughters. To me she looked like she was more calm at that time. She was eating her breakfast. Last 24 hour evaluations were noted. I was actually called every 6 hours for the patient's basic metabolic panel (BMP). Her renal function is significantly better as compared with yesterday. Her sodium and potassium are better as well. However, she continues to be hypercalcemic. Her calcium came down from 14.9 to 12.3 at this time. REVIEW OF SYSTEMS: The patient denies any fevers, chills, rigors, headache, chest pain, shortness of breath, nausea or vomiting. She reports that her pain in abdomen is getting better. The patient is still slightly agitated and confused. The rest of the review of systems is negative. OBJECTIVE: VITAL SIGNS: Temperature is 97 degrees Fahrenheit, blood pressure is 152/70, pulse is 82, respiratory rate of 18, saturating 94% on room air. INTAKE AND OUTPUT: Urine output recorded is 1650 mL so far today since overnight. Weight on the bed scale is 85.8 kg. PHYSICAL EXAMINATION: GENERAL: The patient is awake, alert, oriented times two , sitting in the bed in no apparent distress, eating her breakfast. HEAD AND NECK EXAM: Extraocular muscles intact. Pupils equally round and reactive to light. Mucous membranes are dry. She has a very dry tongue. Neck is supple. There is no jugular venous distension (JVD). CARDIOVASCULAR: S1, S2 regular rate. No murmur, rub or gallop. RESPIRATORY: Chest is clear to auscultation bilaterally. Bilateral equal air entry. No rales or rhonchi. ABDOMEN: Soft. Positive bowel sounds. Nontender. No ascites. No organomegaly. EXTREMITIES: No clubbing or cyanosis. No edema. CENTRAL NERVOUS SYSTEM: Power is 5/5 in all extremities. No focal neurological deficit. SKIN: No rashes or ulcers. LABORATORY REVIEW: Complete blood count (CBC) showed a white blood count (WBC) of 12.9 and hemoglobin was 14.4 after I saw him yesterday. Urinalysis done yesterday showed 1+ blood. There was no protein. Basic metabolic panel (BMP) done today morning showed sodium 140, potassium 3.5, chloride 106, bicarbonate 24, BUN 18, creatine 0.9. Uric acid is 8.7. Calcium is improved to 12.3 now. Phosphorus was very low at 0.9. Magnesium was 1.4. IMAGING: Bone survey done yesterday showed lucencies in the calvarium, pelvis, hips, proximal femoral shafts and ribs, suspicious for metastatic disease or myeloma. CURRENT MEDICATIONS: The patient's medications were all reviewed by me. She continues to be on IV normal saline, plus 20 mEq of KCl at 200 mL an hour and she continues to be on calcitonin 350 international units subcutaneous every 12 hours. I have also ordered IV magnesium sulfate and IV potassium phosphate for the patient today morning. ASSESSMENT: 66-year-old female with past medical history of hypertension, fibromyalgia, hyperlipidemia admitted this time with psychosis, hallucinations, severe hypercalcemia and a skeletal survey, which is highly suspicious for malignancy. Nephrology service following the patient for management of acute kidney injury and electrolyte abnormalities. PLAN: 1. Hypercalcemia. I strongly suspect this is the hypercalcemia of malignancy. I already started the patient on IV fluids. She continues to be on normal saline plus 20 mEq of KCl at 200 mL an hour. I will continue the current rate. The patient still clinically looks very dry. I will continue to give her calcitonin 315 international units subcutaneous every 12 hours at this time. The patient already got a dose of zoledronic acid 4 mg IV yesterday. I see a significant improvement in the calcium level, which is 12.3 today. Her PTH level is pending. 2. Abnormal skeletal survey. The patient has very high calcium levels causing psychosis, low phosphorus, abnormal survey. It is highly suspicious for metastatic malignancy or multiple myeloma. I discussed the patient with hospitalist, Dr. Marco Elizabeth and we need to get hematology/oncology on board on this patient. 3. Acute kidney injury was secondary to dehydration and hypercalcemia. Creatine improved with IV hydration overnight. 4. Hypokalemia. Potassium improved to 3.5 today. I will continue to give the patient potassium chloride in the IV fluids at this time. 5. Severe hypophosphatemia. I again suspect that his hypophosphatemia is secondary to malignancy involving the bones and severe hypercalcemia. I have ordered potassium phosphate 30 mL IV infusion . 6. Hypomagnesemia. The patient's magnesium is 1.4. I am going to give her magnesium sulfate 1 gram IV times one dose. I am also going to repeat the magnesium and phosphorus in the afternoon today. 7. Hypertension. The patient's blood pressure is acceptable at this time. Continue current dose of amlodipine 10 mg by mouth daily, atenolol 100 mg by mouth twice a day, hydralazine 25 mg by mouth every 8 hours. 8. Hyperuricemia that is secondary to acute kidney injury, dehydration and possibility of malignancy. The patient's uric acid level did improve to 8.7 after IV hydration. If the uric acid level does not improve by tomorrow, then I am going to start the patient on Uloric . Plan of care was discussed with the patient's daughters at the bedside with the patient's RN and with Dr. Marco Elizabeth at bedside as well. MELA
[2016-12-28 17:22] LABS: CALCIUM LEVEL 10.3 MG/DL (8.8-10.2); GLOMERULAR FILTRATION RATE 59.2 (>45); POTASSIUM SERUM 3.7 MEQ/L (3.5-5.1)
[2016-12-28 17:39] LABS: MAGNESIUM LEVEL 1.5 MG/DL (1.8-2.4)
[2016-12-28 17:40] LABS: PHOSPHORUS LEVEL 2.7 MG/DL (2.5-4.9)
[2016-12-28] MEDS: SIMVASTATIN 20 MG TAB PO SCH (20:31)
[2016-12-28] MEDS: EZETIMIBE 10 MG TAB (ZETIA) PO SCH (20:32)
[2016-12-28 23:34] LABS: ANION GAP 10 MEQ/L (8-16); BLOOD UREA NITROGEN 13 MG/DL (7-18); CALCIUM LEVEL 9.5 MG/DL (8.8-10.2); CARBON DIOXIDE LEVEL 22 MEQ/L (21-32); CHLORIDE LEVEL 105 MEQ/L (98-107); CREATININE FOR GFR 0.95 MG/DL (0.55-1.02); GLOMERULAR FILTRATION RATE > 60.0 (>45); GLUCOSE, FASTING 92 MG/DL (80-110); POTASSIUM SERUM 3.2 MEQ/L (3.5-5.1); SODIUM LEVEL 137 MEQ/L (136-145)
[2016-12-29] VITALS (9 sets, daily range): BP systolic 147–162; BP diastolic 76–94; PULSE 75
[2016-12-29] MEDS: CALCITONIN SALMON (MIACALCIN) 400INTERNATIONAL UNITS/2ML INJ (J0630) SQ SCH (00:22)
[2016-12-29] MEDS: KCL 20MEQ in NS 1000ML 1,000 ML IV SCH (05:25)
[2016-12-29] MEDS: **hydrALAZINE HCL** 25 MG TAB PO SCH ×3 (05:26→21:14)
[2016-12-29 05:49] LABS: ALBUMIN 2.7 GM/DL (3.2-5.2); ANION GAP 13 MEQ/L (8-16); BLOOD UREA NITROGEN 13 MG/DL (7-18); CALCIUM LEVEL 8.9 MG/DL (8.8-10.2); CARBON DIOXIDE LEVEL 22 MEQ/L (21-32); CHLORIDE LEVEL 105 MEQ/L (98-107); CREATININE FOR GFR 0.96 MG/DL (0.55-1.02); GLOMERULAR FILTRATION RATE > 60.0 (>45); GLUCOSE, FASTING 96 MG/DL (80-110); MAGNESIUM LEVEL 1.4 MG/DL (1.8-2.4); PHOSPHORUS LEVEL 1.6 MG/DL (2.5-4.9); POTASSIUM SERUM 3.2 MEQ/L (3.5-5.1); SODIUM LEVEL 140 MEQ/L (136-145)
[2016-12-29] MEDS: MAG SULF 1GM/100ML (MAG RUN) 1 GM in APPROPRIATE DILUENT 1 EA IV SCH ×2 (07:19→09:45)
--- NOTE | 2016-12-29 07:50 | IPNPDOC ---
Subjective General Date Seen The patient was seen on 12/29/16. Subjective Chief Complaint/HPI The patient is a 66-year-old female admitted with a reason for visit of Hypercalcemia; Psychosis. General: Denies: Chills, Fatigue, Malaise, Night Sweats, Normal Appetite, Other Symptoms, ROS Unobtainable Constitutional: Denies: Chills, Fatigue, Fever, Lethargy, Malaise, Night Sweats , Other, Weakness, Weight Loss Eyes: Denies: Conjunctivae inflammation, Eyelid inflammation, Other, Pain, Redness, Vision change ENT: Denies: Dysphagia, Ear Pain, Epistaxis, Head Aches, Other Symptoms, Post Nasal Drip, Sinus Congestion, Sore Throat Skin: Denies: Breakdown, Bruising, Dry, Itching, Jaundice, Lesions, Nail Changes, Other, Rash Pulmonary: Denies: Cough, Dyspnea, Other Symptoms, Pleuritic Chest Pain Cardiovascular: Denies: Chest Pain, Edema, Lt Headedness, Orthopnea, Other Symptoms, Palpitations, Paroxysmal Noc. Dyspnea Gastrointestinal: Denies: Abdominal Pain, Constipation, Diarrhea, Hematochezia , Melena, Nausea, Other Symptoms, Vomiting Genitourinary: Denies: Dysuria, Frequency, Hematuria, Incontinence, Other Symptoms, Retention Objective Physical Examination General Exam: Positive: Alert, Cooperative, No Acute Distress Eye Exam: Positive: Conjunctiva & lids normal, EOMI, PERRLA, Negative: Sclera icteric ENT Exam: Positive: Atraumatic Neck Exam: Positive: Supple Chest Exam: Positive: Clear to auscultation, Normal air movement Heart Exam: Positive: Rate Normal, Regular Rhythm Telemetry: Positive: No significant arrhythmia Abdomen Exam: Positive: Normal bowel sounds, Soft, Negative: Tenderness Assessment /Plan Problems Problems: (1) Hypercalcemia Status: Acute Discussed With: Truck Leasing Manager, Patient, Health Care Proxy Problem Specific Plan: Consult Specialist, Monitor Clinically, Repeat Labs, Repeat Tests Problem Text: IV fluids, calcitonin. Serial BMPs. High suspicion for malignancy given results of bone scan, hypercalcemia and hyperuricemia. SPEP/UPEP pending. No family history of malignancy as per daughter and patient. Nephrology consultation appreciated. Oncology consultation pending. (2) Psychosis Status: Resolved Discussed With: Patient Problem Specific Plan: Monitor Clinically, Repeat Labs, Repeat Tests Problem Text: Essentially resolved, likely secondary to hypercalcemia. Daughter Aydee at bedside and staying overnight for support and assistance. 1:1 sitter discontinued. (3) HAYDEE (acute kidney injury) Status: Resolved Discussed With: Truck Leasing Manager, Patient Problem Specific Plan: Consult Specialist, Repeat Labs, Repeat Tests Problem Text: Likely secondary to hypercalcemia. Continue with IV fluids. Hold nephrotoxic medications. (4) HTN (hypertension) Status: Chronic Discussed With: Patient Problem Specific Plan: Monitor Clinically Problem Text: Norvasc, atenolol, hydralazine scheduled and prn. ARB on hold secondary to HAYDEE. (5) Hyperlipidemia Status: Chronic (6) Fibromyalgia Status: Chronic Discussed With: Patient Problem Specific Plan: Monitor Clinically (7) Falls Status: Acute Discussed With: Patient Problem Specific Plan: Consult Specialist, Monitor Clinically, Repeat Labs, Repeat Tests Problem Text: PT and OT. Plan/VTE VTE Prophylaxis Ordered?: Yes Plan/Urinary Catheter Reason for insertion/continuin: Critical Pt monitoring Plan IVF: Continue Diet: Continue Current Activity: Continue Current Therapy: PT Medications: Replete Electrolytes IV Diagnostics: Repeat Labs in AM, Other Diagnostics Anticipated Discharge: Home, Home With Services Disposition Continuing with IV fluids and intranasal calcitonin. Oncology consultation pending for further evaluation and likely bone marrow biopsy. Labs pending including SPEP/UPEP. VS, I&O, 24H, Fishbone Vital Signs/I&O Vital Signs Date Time Temp Pulse Resp B/P Pulse Ox O2 Delivery O2 Flow Rate FiO2 12/29/16 05:26 152/81 12/29/16 04:59 98.1 93 18 97 Room Air I&O- Last 24 Hours up to 6 AM 12/29/16 06:00 Intake Total 4900 ml Output Total 2300 ml Balance 2600 ml Laboratory Data 24H LABS Laboratory Tests 2 12/28/16 11:05: Anion Gap 9, Anisocytosis 1+, Atypical Lymphocytes 1, Band Neutrophils 2, Blood Urea Nitrogen 17, Creatinine 0.99, Sodium Level 139, Potassium Level 3.4L, Chloride Level 106, Carbon Dioxide Level 24, Calcium Level 11.1H, Glomerular Filtration Rate 59.9, Lymphocytes (Manual) 7L, Monocytes (Manual) 1, Neutrophils 89H, Platelet Estimate NORMAL 12/28/16 16:46: Anion Gap 9, Blood Urea Nitrogen 16, Creatinine 1.00, Sodium Level 136, Potassium Level 3.7, Chloride Level 102, Carbon Dioxide Level 25, Calcium Level 10.3H, Glomerular Filtration Rate 59.2, Magnesium Level 1.5L, Phosphorus Level 2.7# 12/28/16 22:47: Anion Gap 10, Blood Urea Nitrogen 13, Creatinine 0.95, Sodium Level 137, Potassium Level 3.2L, Chloride Level 105, Carbon Dioxide Level 22, Calcium Level 9.5, Glomerular Filtration Rate > 60.0 12/29/16 05:10: Anion Gap 13, Blood Urea Nitrogen 13, Creatinine 0.96, Sodium Level 140, Potassium Level 3.2L, Chloride Level 105, Carbon Dioxide Level 22, Calcium Level 8.9, Glomerular Filtration Rate > 60.0, Magnesium Level 1.4L, Phosphorus Level 1.6#L, Albumin 2.7#L CBC/BMP Laboratory Tests 12/28/16 11:05 Calcium Level 11.1 H 12/28/16 16:46 Calcium Level 10.3 H 12/28/16 22:47 Calcium Level 9.5 12/29/16 05:10 Anion Gap 13 KARINA DOSHI MD Dec 29, 2016 07:50 KARINA DOSHI MD Dec 29, 2016 07:50
[2016-12-29] MEDS ORDERED: CALCITONIN NASAL SPRAY 3.7 ML BTL SCH (09:00)
[2016-12-29] MEDS: FLUoxetine 20 MG CAP PO SCH (09:45)
[2016-12-29] MEDS: ATENOLOL 50 MG TAB PO SCH ×2 (09:46→20:24)
[2016-12-29] MEDS: OMEGA-3 1050MG CAPSULE PO SCH ×3 (09:46→20:26)
[2016-12-29] MEDS: amLODIPine 10 MG TAB PO SCH (09:46)
[2016-12-29] MEDS: ACETAMINOPHEN TAB 650MG DOSE (2X325MG) PO PRN ×3 (09:51→20:25)
[2016-12-29] MEDS: NS IV SCH ×2 (10:57→21:15)
[2016-12-29] MEDS: POTASSIUM PHOSPHATE IV SCH ×2 (10:57→21:15)
[2016-12-29] MEDS: K-PHOS ORIGINAL (POT.ACID PHOSPHATE) 500MG TAB PO SCH ×2 (11:17→20:24)
--- NOTE | 2016-12-29 17:23 | IPN ---
DATE: 12/29/2016 Mrs. Cates is seen this morning on her bedside. She is feeling better today and reports that her appetite is slightly improved. She denies any headache, nausea, vomiting, dyspnea or chest pain. She was admitted with severe hypercalcemia and altered mentation. She has been receiving IV fluids, intravenous calcitonin and her calcium level has already improved. PHYSICAL EXAMINATION: Temperature 97.0 degrees Fahrenheit, heart rate 86 per minute and respiratory rate 18 per minute. Blood pressure 156/94 mmHg and oxygen saturation 95% on room air. Intake and output records from yesterday show total intake 4050 and output 3400 mL. Head is atraumatic. Pupils are equal and reactive to light and sclera is anicteric. Ears, nose and throat are unremarkable. There is no oral thrush or ulcers. Neck veins are mildly distended. Neck is supple and without any thyroid enlargement. Heart sounds are regular and lungs clear to auscultation with slightly diminished breath sounds at bases. Abdomen: Soft and nontender and without any palpable organomegaly. Bowel sounds are normal. Extremities have no cyanosis or clubbing. Skin: There is no rash or ulcers. Neurologically, she is awake and alert and answering questions appropriately. LABORATORY DATA: Her intact PTH level which was drawn on December 27 has come back at less than 6.3. Today's chemistry shows sodium level 140, potassium 3.2, chloride 105, CO2 22, BUN 13, creatinine 0.96, glucose 96, calcium 8.9, phosphorus 1.6, magnesium 1.4 and albumin 2.7. Her serum protein electrophoresis is still pending. Her 24-hour urine collection is in progress for urine protein electrophoresis. Her urinalysis was negative for any protein. PROBLEMS: 1. Hypercalcemia. Most likely related to malignancy and calcium level has improved. Her intravenous calcitonin is being stopped. I will start her on calcitonin nasal spray one spray every day in alternate nostril. We will continue to monitor her calcium level on a daily basis and adjust the dose of calcitonin depending upon her response. 2. Hypokalemia. This is related to intravenous fluids given and poor oral intake. She is receiving potassium chloride supplement. However, she also need phosphorus, so we will switch her IV fluid and add potassium phosphate in IV fluid instead of potassium chloride. Her electrolytes will be checked tomorrow morning. 3. Hypophosphatemia. This is nutritional and potassium phosphate 40 mEq is being added in each liter of IV fluid. We will also give her oral potassium phosphate 500 mg twice a day and recheck her renal profile tomorrow morning. 4. Metabolic encephalopathy. Her mentation has improved, and she is back to about her baseline level. Most likely her encephalopathy was related to hypercalcemia. 5. Generalized weakness and deconditioning. Again, this is most likely related to hypercalcemia and has already improved. She is likely to require physical therapy. 6. Hypomagnesemia. Magnesium is already being replaced with magnesium sulfate, 1 gram being given intravenously.
[2016-12-29] MEDS: ENOXAPARIN 40 MG/0.4 ML SYRINGE (J1650) SC SCH (18:31)
[2016-12-29] MEDS: EZETIMIBE 10 MG TAB (ZETIA) PO SCH (20:25)
[2016-12-29] MEDS: SIMVASTATIN 20 MG TAB PO SCH (20:25)
[2016-12-30 01:17] LABS: TOTAL VOLUME, URINE 3060 ML
[2016-12-30 01:54] LABS: CALCIUM, URINE 13.5 MG/DL
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
--- NOTE | 2016-12-30 03:43 | EDDOCDS ---
Physician Documentation [facility] Name: Katlin Cates Age: 66 yrs Sex: Female : 1950 Arrival Date: 12/27/2016 Time: 10:53 Bed Admit Hold Private MD: Disposition: 12/27/16 13:45 Hospitalization ordered by Eduard Harper for Inpatient Admission. Preliminary diagnosis is Altered mental status, unspecified - with abnormal CT head. - Bed requested for PCU. - Status is Inpatient Admission. sls1 - Condition is Stable. - Problem is new. - Symptoms are unchanged. Historical: - Allergies: Flagyl; SULFA (SULFONAMIDES); - Home Meds: 1. aspirin 81 mg Oral tab 1 tab once daily 2. Fish Oil 1,000 mg Oral cap three times a day 3. potassium chloride 20 mEq Oral TbER 1 tab once daily 4. Zocor 20 mg Oral tab 1 tab once daily 5. Calcium + Vitamin D 600 mg calcium- 200 unit Oral tab 2 tab twice a day 6. Strattera 60 mg oral cap 1 cap once daily 7. hydroxyzine HCl 50 mg Oral tab 1 tab three times a day as needed 8. chlorthalidone 25 mg Oral tab 1 tab once daily 9. amiloride 5 mg oral tab 1 tab once daily 10. atenolol 100 mg Oral tab 1 tab twice a day 11. losartan 100 mg oral tab 1 tab once daily 12. fluoxetine 40 mg Oral cap 1 cap once daily 13. Norvasc 5 mg Oral tab 1 tab once daily 14. Zetia 10 mg Oral tab 1 tab once daily 15. gabapentin 300 mg Oral cap 1 cap twice a day 16. Vitamin D Oral 50,000 unit weekly 17. tizanidine 4 mg oral tab 1 tab every 8 hours - PMHx: Hypertension; Hypercholesterolemia; Depression; Anxiety; Fibromyalgia; ADHD; - PSHx: Hysterectomy; Appendectomy; Tubal ligation; - Social history: Smoking status: Patient states former smoker of tobacco. No barriers to communication noted, The patient speaks fluent Bruneian, Speaks appropriately for age. - : The pt / caregiver states he / she is not on anticoagulants. Home medication list is obtained from a discharge med list. - Exposure Risk Screening:: None identified. Vital Signs: 12/27 11:05 BP 180 / 88; Pulse 89; Resp 18; Temp 97.6(O); Pulse Ox 97% on R/A; Weight 88 kg / kc3 194.01 lbs (R); Height 5 ft. 6 in. (167.64 cm); Pain 0/10; 11:17 BP 181 / 87 (auto/); hs1 11:17 Pulse 80 MON; Pulse Ox 99% ; hs1 11:32 BP 166 / 85 (auto/); hs1 11:32 Pulse 80 MON; Pulse Ox 99% ; hs1 11:47 BP 173 / 84 (auto/); hs1 11:47 Pulse 74 MON; Pulse Ox 98% ; hs1 12:02 BP 169 / 81 (auto/); hs1 12:02 Pulse 78 MON; Pulse Ox 99% ; hs1 12:16 Pulse 78 MON; Pulse Ox 98% ; hs1 12:17 BP 169 / 81 (auto/); hs1 12:31 Pulse 72 MON; Pulse Ox 98% ; hs1 12:32 BP 166 / 78 (auto/); hs1 12:43 Pulse 82 MON; Pulse Ox 97% ; hs1 13:01 BP 188 / 87 (auto/); hs1 13:31 BP 170 / 83 (auto/); hs1 13:31 Pulse 78 MON; Pulse Ox 95% ; hs1 14:01 BP 185 / 88 (auto/); hs1 14:01 Pulse 80 MON; Pulse Ox 100% ; hs1 14:30 Pulse 76 MON; Pulse Ox 98% ; hs1 14:31 BP 198 / 90 (auto/); hs1 15:00 Pulse 74 MON; Pulse Ox 97% ; hs1 15:01 BP 197 / 132 (auto/); hs1 15:17 Pulse 80 MON; Pulse Ox 99% ; hs1 15:18 BP 171 / 80 (auto/); hs1 15:30 Pulse 70 MON; Pulse Ox 97% ; hs1 15:31 BP 182 / 86 (auto/); hs1 16:00 Pulse 76 MON; Pulse Ox 98% ; hs1 16:01 BP 182 / 81 (auto/); hs1 16:12 BP 156 / 78 LA (man/lg); rn1 17:14 Temp 99.0(T); rn1 12/28 01:07 BP 146 / 80; Pulse 75; Resp 18; Temp 97.9; Pulse Ox 96% on R/A; [facility] 12/27 11:05 Body Mass Index 31.31 (88.00 kg, 167.64 cm) kc3 MDM: 12/27 11:11 Consult PFS/PSA/Chief Drafter ordered. ml 11:11 Consult PFS/PSA/Chief Drafter: Patient's case requires discussion with on-call ml Psychiatrist ordered. 11:11 PSA/PFS to call Nursing Natural [employer] Basis Trader, to enter patient data on [place] if patient ml involuntarily admitted or transferred for SI or HI ordered. 11:11 Web Publisher/Pulse Ox/q 15 min VS ordered. ml 11:11 Confirm accurate psychiatric medication list and times of last dosage ordered. ml 11:11 Detain Pt Until Medically/PFS Cleared ordered. ml 11:11 IV Saline Lock ordered. ml 11:11 Rhythm Strip to chart ordered. ml 11:12 Acetaminophen Level Ordered. EDMS 11:12 Basic Metabolic Profile Ordered. EDMS 11:12 Complete Blood Count Ordered. EDMS 11:12 Drug Eval Toxicology ED Only Ordered. EDMS 11:12 Ethyl Alcohol (ethanol) Ordered. EDMS 11:12 Liver Profile Ordered. EDMS 11:12 Salicylate Level Ordered. EDMS 11:12 Thyroid Stimulating Hormone Ordered. EDMS 11:12 ECG WITH READING ER PHYS+CARDIAG ordered. EDMS 11:12 CT Head Without Contrast Ordered. EDMS 11:27 Financial registration complete. mm15 11:40 Call Poison Control ordered. ml 11:54 [facility] Payment Agreement was scanned into [employer] and attached to record. mm15 12:14 CARDIAC INJURY PROFILE Ordered. EDMS 12:14 TROPONIN Ordered. EDMS 13:18 Acetaminophen Level Reviewed. ml 13:18 Basic Metabolic Profile Reviewed. ml 13:18 Complete Blood Count Reviewed. ml 13:18 Liver Profile Reviewed. ml 13:18 Salicylate Level Reviewed. ml 13:18 Ethyl Alcohol (ethanol) Reviewed. ml 13:18 Thyroid Stimulating Hormone Reviewed. ml 13:18 CARDIAC INJURY PROFILE Reviewed. ml 13:18 TROPONIN Reviewed. ml 13:19 Potassium Chloride Extended Release Tablet 40 mEq PO once ordered. ml 13:22 Chest, 1 View Ordered. EDMS 13:22 Uric Acid Ordered. EDMS 13:27 BED REQUEST+ADM ordered. EDMS 13:50 Potassium Chloride Extended Release Tablet 40 mEq PO once ordered. hs1 14:47 PTH INTACT Ordered. EDMS 14:47 IONIZED CALCIUM Ordered. EDMS 14:47 URINE PROTEIN ELECTROPHORESIS Ordered. EDMS 14:47 SERUM PROTEIN ELECTROPHORESIS Ordered. EDMS 14:47 URINE CALCIUM 24 HOUR Ordered. EDMS 14:47 URINE CREATININE 24 HOUR Ordered. EDMS 14:48 THYROID STIMULATING HORMONE Ordered. EDMS 14:48 VIT D 1,25 DIHYDROXY Ordered. EDMS 14:48 Bone Survey Adult, ? Mets Ordered. EDMS 14:49 Admission / Observation Status ordered. EDMS 14:49 ECHOCARD,DOPPLER/COLOR FLOW ordered. EDMS 14:49 2 GRAM SODIUM DIET ordered. EDMS 14:57 URINALYSIS Ordered. EDMS 14:57 SODIUM,RANDOM URINE Ordered. EDMS 14:57 CREATININE,RANDOM URINE Ordered. EDMS 14:57 CALCIUM,RANDOM URINE Ordered. EDMS 14:57 BASIC METABOLIC PROFILE Ordered. EDMS 14:57 BASIC METABOLIC PROFILE Ordered. EDMS 15:35 Uric Acid Reviewed. ml 15:35 Drug Eval Toxicology ED Only Reviewed. ml 15:35 CT Head Without Contrast Reviewed. ml 15:35 Chest, 1 View Reviewed. ml 19:30 BASIC METABOLIC PROFILE Ordered. EDMS 19:30 BASIC METABOLIC PROFILE Ordered. EDMS 19:30 BASIC METABOLIC PROFILE Ordered. EDMS 19:31 BASIC METABOLIC PROFILE Ordered. EDMS 22:28 T-Sheet-- Draft Copy was scanned into [employer] and attached to record. klr 12/28 01:17 PSA/PFS to call Nursing Natural [employer] Basis Trader, to enter patient data [place] if patient jfb involuntarily admitted or transferred for SI or HI complete. 01:17 Consult PFS/PSA/Chief Drafter complete. jfb 01:17 Consult PFS/PSA/Chief Drafter: Patient's case requires discussion with on-call b Psychiatrist complete. Administered Medications: 12/27 13:50 Drug: Potassium Chloride 40 mEq [potassium chloride ER 10 mEq tablet,extended release hs1 (4 tabs)] Route: PO; Signatures: Dispatcher [employer] EDMO Theresa Courtney MD MD ml Quesenberry HC, Deborah, RN RN daq Youngs, David RN RN Jennie Barrera, PSA PSA jfb Michelle Ghosh RN RN hs1 Jennifer Gastelum RN RN [facility] June Chung 15 Beth Marks r The chart was reviewed and I authenticate all verbal orders and agree with the evaluation and treatment provided.Corrections: (The following items were deleted from the chart) 12:13 12:09 CARDIAC INJURY PROFILE+LAB ordered. EDMS EDMS 12:13 12:09 TROPONIN+LAB ordered. EDMS EDMS 15:00 14:57 UREA NITROGEN,RANDOM URINE ordered. EDMS EDMS Attachments: 11:54 [facility] Payment Agreement mm15 22:28 T-Sheet-- Draft Copy klr Chart Complete MTDD
--- NOTE | 2016-12-30 03:43 | EDDOCDS ---
Physician Documentation [facility] Name: Katlin Cates Age: 66 yrs Sex: Female : 1950 Arrival Date: 12/27/2016 Time: 10:53 Bed Admit Hold Private MD: Disposition: 12/27/16 13:45 Hospitalization ordered by Eduard Harper for Inpatient Admission. Preliminary diagnosis is Altered mental status, unspecified - with abnormal CT head. - Bed requested for PCU. - Status is Inpatient Admission. sls1 - Condition is Stable. - Problem is new. - Symptoms are unchanged. Historical: - Allergies: Flagyl; SULFA (SULFONAMIDES); - Home Meds: 1. aspirin 81 mg Oral tab 1 tab once daily 2. Fish Oil 1,000 mg Oral cap three times a day 3. potassium chloride 20 mEq Oral TbER 1 tab once daily 4. Zocor 20 mg Oral tab 1 tab once daily 5. Calcium + Vitamin D 600 mg calcium- 200 unit Oral tab 2 tab twice a day 6. Strattera 60 mg oral cap 1 cap once daily 7. hydroxyzine HCl 50 mg Oral tab 1 tab three times a day as needed 8. chlorthalidone 25 mg Oral tab 1 tab once daily 9. amiloride 5 mg oral tab 1 tab once daily 10. atenolol 100 mg Oral tab 1 tab twice a day 11. losartan 100 mg oral tab 1 tab once daily 12. fluoxetine 40 mg Oral cap 1 cap once daily 13. Norvasc 5 mg Oral tab 1 tab once daily 14. Zetia 10 mg Oral tab 1 tab once daily 15. gabapentin 300 mg Oral cap 1 cap twice a day 16. Vitamin D Oral 50,000 unit weekly 17. tizanidine 4 mg oral tab 1 tab every 8 hours - PMHx: Hypertension; Hypercholesterolemia; Depression; Anxiety; Fibromyalgia; ADHD; - PSHx: Hysterectomy; Appendectomy; Tubal ligation; - Social history: Smoking status: Patient states former smoker of tobacco. No barriers to communication noted, The patient speaks fluent Liberian, Speaks appropriately for age. - : The pt / caregiver states he / she is not on anticoagulants. Home medication list is obtained from a discharge med list. - Exposure Risk Screening:: None identified. Vital Signs: 12/27 11:05 BP 180 / 88; Pulse 89; Resp 18; Temp 97.6(O); Pulse Ox 97% on R/A; Weight 88 kg / kc3 194.01 lbs (R); Height 5 ft. 6 in. (167.64 cm); Pain 0/10; 11:17 BP 181 / 87 (auto/); hs1 11:17 Pulse 80 MON; Pulse Ox 99% ; hs1 11:32 BP 166 / 85 (auto/); hs1 11:32 Pulse 80 MON; Pulse Ox 99% ; hs1 11:47 BP 173 / 84 (auto/); hs1 11:47 Pulse 74 MON; Pulse Ox 98% ; hs1 12:02 BP 169 / 81 (auto/); hs1 12:02 Pulse 78 MON; Pulse Ox 99% ; hs1 12:16 Pulse 78 MON; Pulse Ox 98% ; hs1 12:17 BP 169 / 81 (auto/); hs1 12:31 Pulse 72 MON; Pulse Ox 98% ; hs1 12:32 BP 166 / 78 (auto/); hs1 12:43 Pulse 82 MON; Pulse Ox 97% ; hs1 13:01 BP 188 / 87 (auto/); hs1 13:31 BP 170 / 83 (auto/); hs1 13:31 Pulse 78 MON; Pulse Ox 95% ; hs1 14:01 BP 185 / 88 (auto/); hs1 14:01 Pulse 80 MON; Pulse Ox 100% ; hs1 14:30 Pulse 76 MON; Pulse Ox 98% ; hs1 14:31 BP 198 / 90 (auto/); hs1 15:00 Pulse 74 MON; Pulse Ox 97% ; hs1 15:01 BP 197 / 132 (auto/); hs1 15:17 Pulse 80 MON; Pulse Ox 99% ; hs1 15:18 BP 171 / 80 (auto/); hs1 15:30 Pulse 70 MON; Pulse Ox 97% ; hs1 15:31 BP 182 / 86 (auto/); hs1 16:00 Pulse 76 MON; Pulse Ox 98% ; hs1 16:01 BP 182 / 81 (auto/); hs1 16:12 BP 156 / 78 LA (man/lg); rn1 17:14 Temp 99.0(T); rn1 12/28 01:07 BP 146 / 80; Pulse 75; Resp 18; Temp 97.9; Pulse Ox 96% on R/A; [facility] 12/27 11:05 Body Mass Index 31.31 (88.00 kg, 167.64 cm) kc3 MDM: 12/27 11:11 Consult PFS/PSA/Wrapper Stitcher ordered. ml 11:11 Consult PFS/PSA/Wrapper Stitcher: Patient's case requires discussion with on-call ml Psychiatrist ordered. 11:11 PSA/PFS to call Nursing Retail District Manager, to enter patient data [place] if patient ml involuntarily admitted or transferred for SI or HI ordered. 11:11 Director Of Public Works/Pulse Ox/q 15 min VS ordered. ml 11:11 Confirm accurate psychiatric medication list and times of last dosage ordered. ml 11:11 Detain Pt Until Medically/PFS Cleared ordered. ml 11:11 IV Saline Lock ordered. ml 11:11 Rhythm Strip to chart ordered. ml 11:12 Acetaminophen Level Ordered. EDMS 11:12 Basic Metabolic Profile Ordered. EDMS 11:12 Complete Blood Count Ordered. EDMS 11:12 Drug Eval Toxicology ED Only Ordered. EDMS 11:12 Ethyl Alcohol (ethanol) Ordered. EDMS 11:12 Liver Profile Ordered. EDMS 11:12 Salicylate Level Ordered. EDMS 11:12 Thyroid Stimulating Hormone Ordered. EDMS 11:12 ECG WITH READING ER PHYS+CARDIAG ordered. EDMS 11:12 CT Head Without Contrast Ordered. EDMS 11:27 Financial registration complete. mm15 11:40 Call Poison Control ordered. ml 11:54 [facility] Payment Agreement was scanned into [employer] and attached to record. mm15 12:14 CARDIAC INJURY PROFILE Ordered. EDMS 12:14 TROPONIN Ordered. EDMS 13:18 Acetaminophen Level Reviewed. ml 13:18 Basic Metabolic Profile Reviewed. ml 13:18 Complete Blood Count Reviewed. ml 13:18 Liver Profile Reviewed. ml 13:18 Salicylate Level Reviewed. ml 13:18 Ethyl Alcohol (ethanol) Reviewed. ml 13:18 Thyroid Stimulating Hormone Reviewed. ml 13:18 CARDIAC INJURY PROFILE Reviewed. ml 13:18 TROPONIN Reviewed. ml 13:19 Potassium Chloride Extended Release Tablet 40 mEq PO once ordered. ml 13:22 Chest, 1 View Ordered. EDMS 13:22 Uric Acid Ordered. EDMS 13:27 BED REQUEST+ADM ordered. EDMS 13:50 Potassium Chloride Extended Release Tablet 40 mEq PO once ordered. hs1 14:47 PTH INTACT Ordered. EDMS 14:47 IONIZED CALCIUM Ordered. EDMS 14:47 URINE PROTEIN ELECTROPHORESIS Ordered. EDMS 14:47 SERUM PROTEIN ELECTROPHORESIS Ordered. EDMS 14:47 URINE CALCIUM 24 HOUR Ordered. EDMS 14:47 URINE CREATININE 24 HOUR Ordered. EDMS 14:48 THYROID STIMULATING HORMONE Ordered. EDMS 14:48 VIT D 1,25 DIHYDROXY Ordered. EDMS 14:48 Bone Survey Adult, ? Mets Ordered. EDMS 14:49 Admission / Observation Status ordered. EDMS 14:49 ECHOCARD,DOPPLER/COLOR FLOW ordered. EDMS 14:49 2 GRAM SODIUM DIET ordered. EDMS 14:57 URINALYSIS Ordered. EDMS 14:57 SODIUM,RANDOM URINE Ordered. EDMS 14:57 CREATININE,RANDOM URINE Ordered. EDMS 14:57 CALCIUM,RANDOM URINE Ordered. EDMS 14:57 BASIC METABOLIC PROFILE Ordered. EDMS 14:57 BASIC METABOLIC PROFILE Ordered. EDMS 15:35 Uric Acid Reviewed. ml 15:35 Drug Eval Toxicology ED Only Reviewed. ml 15:35 CT Head Without Contrast Reviewed. ml 15:35 Chest, 1 View Reviewed. ml 19:30 BASIC METABOLIC PROFILE Ordered. EDMS 19:30 BASIC METABOLIC PROFILE Ordered. EDMS 19:30 BASIC METABOLIC PROFILE Ordered. EDMS 19:31 BASIC METABOLIC PROFILE Ordered. EDMS 22:28 T-Sheet-- Draft Copy was scanned into [employer] and attached to record. klr 12/28 01:17 PSA/PFS to call Nursing Retail District Manager, to enter patient [place] if patient jfb involuntarily admitted or transferred for SI or HI complete. 01:17 Consult PFS/PSA/Wrapper Stitcher complete. jfb 01:17 Consult PFS/PSA/Wrapper Stitcher: Patient's case requires discussion with on-call b Psychiatrist complete. Administered Medications: 12/27 13:50 Drug: Potassium Chloride 40 mEq [potassium chloride ER 10 mEq tablet,extended release hs1 (4 tabs)] Route: PO; Signatures: Dispatcher [employer] EDIA Theresa Courtney MD MD ml Quesenberry HC, Deborah, RN RN daq Youngs, David RN RN Jennie Barrera, PSA PSA jfb Michelle Ghosh RN RN hs1 Jennifer Gastelum RN RN [email or web address]1 June Chung 15 Beth Marks r The chart was reviewed and I authenticate all verbal orders and agree with the evaluation and treatment provided.Corrections: (The following items were deleted from the chart) 12:13 12:09 CARDIAC INJURY PROFILE+LAB ordered. EDMS EDMS 12:13 12:09 TROPONIN+LAB ordered. EDMS EDMS 15:00 14:57 UREA NITROGEN,RANDOM URINE ordered. EDMS EDMS Attachments: 11:54 [facility] Payment Agreement mm15 22:28 T-Sheet-- Draft Copy klr Chart Complete MTDD
[2016-12-30 05:04] VITALS: BP 161/77
[2016-12-30] MEDS: **hydrALAZINE HCL** 25 MG TAB PO SCH ×3 (05:12→21:53)
[2016-12-30] MEDS: ACETAMINOPHEN TAB 650MG DOSE (2X325MG) PO PRN ×2 (05:12→20:09)
[2016-12-30 05:14] LABS: MEAN CORPUSCULAR HEMOGLOBIN 28.9 pg (27.0-33.0); MEAN CORPUSCULAR HGB CONC 34.4 g/dl (32.0-36.5); MEAN CORPUSCULAR VOLUME 83.9 fl (80.0-96.0); RED CELL DISTRIBUTION WIDTH 13.5 % (11.5-14.5); WHITE BLOOD COUNT 8.5 K/mm3 (4.0-10.0)
[2016-12-30 05:32] LABS: ALBUMIN 2.7 GM/DL (3.2-5.2); ANION GAP 13 MEQ/L (8-16); BLOOD UREA NITROGEN 11 MG/DL (7-18); CARBON DIOXIDE LEVEL 20 MEQ/L (21-32); CHLORIDE LEVEL 105 MEQ/L (98-107); GLOMERULAR FILTRATION RATE > 60.0 (>45); GLUCOSE, FASTING 81 MG/DL (80-110); MAGNESIUM LEVEL 1.2 MG/DL (1.8-2.4); POTASSIUM SERUM 3.3 MEQ/L (3.5-5.1); SODIUM LEVEL 138 MEQ/L (136-145)
--- NOTE | 2016-12-30 05:50 | ECHO ---
DATE OF PROCEDURE: 12/29/2016 AGE: 66 GENDER: Female REFERRING PHYSICIAN: Dr. Eduard Harper. HEIGHT: 66 inches. WEIGHT: 194 pounds. BODY SURFACE AREA: 1.98 sq m. INPATIENT: PCU Room 3216 INDICATION: Abnormal EKG. MEASUREMENTS: 2D MEASUREMENTS: RV - 2.8 cm LV- 4.0 cm Septum - 1.1 cm Posterior wall - 1.1 cm Aortic root - 3.3 cm LA - 3.4 cm LVEF - 65% DOPPLER MEASUREMENTS: AV - 1.1 m/s LVOT - 0.78 m/s LVOT diameter - 2.1 cm MV-E: 86 A: 90 EA ratio 1 Early mitral deacceleration time - 187 ms E-prime - 6.1 A-prime - 14 E/E prime ratio 14 PV - 0.8 m/s Pulmonary artery acceleration time - 120 ms RVSP - 25 mmHg IVC - 1.6 cm COMMENTS: Normal sinus rhythm without intraventricular conduction disturbance. Normal cardiac chamber sizes and wall thickness. On real-time imaging from the parasternal and apical projections, wall motion was symmetrical and normal to hyperkinetic. Slightly thickened mitral annulus but normal leaflet thickness and excursion with no posterior systolic buckling. Three equal size aortic cusps of normal thickness and cusp separation. Normal aortic root size. No apparent intracardiac mass or pericardial effusion. Color flow Doppler study taken from the parasternal and apical projection showed very mild mitral, mild tricuspid but no aortic insufficiency. Guided continuous wave Doppler of her LV aortic valve showed a normal peak systolic velocity against LV outflow tract obstruction. Pulsed and continuous wave Doppler of her LV inflow tract taken from the apical four-chamber projection showed normal diastolic filling velocities against mitral stenosis. There was also normal filling pattern. Using pulsed and tissue Doppler of her mitral annulus, her estimated mean left atrial pressure was upper limits of normal. Pulsed and continuous wave Doppler of her pulmonary trunk showed a normal peak systolic velocity against RV outflow tract obstruction. Her pulmonary artery acceleration time was normal against an elevated pulmonary vascular resistance. Guided continuous wave Doppler of her tricuspid valve allowed our estimation of her right ventricle systolic pressure (within normal limits). Normal IVC size and respiratory collapse against an elevated central venous pressure. CONCLUSION: Normal appearing echocardiogram/Doppler study.
[2016-12-30 06:50] LABS: CALCIUM LEVEL 7.2 MG/DL (8.8-10.2)
[2016-12-30 06:51] LABS: PHOSPHORUS LEVEL 3.4 MG/DL (2.5-4.9)
[2016-12-30] MEDS ORDERED: MAG SULF 1GM/100ML (MAG RUN) 1 GM in APPROPRIATE DILUENT 1 EA IV ONE (07:30)
[2016-12-30 08:00] VITALS: BP 135/83
[2016-12-30] MEDS ORDERED: POTASSIUM CHLORIDE 10 MEQ SR TABLET PO ONE (08:00)
[2016-12-30] MEDS: OMEGA-3 1050MG CAPSULE PO SCH ×3 (08:39→20:08)
[2016-12-30] MEDS: POTASSIUM PHOSPHATE IV SCH ×2 (08:41→21:53)
[2016-12-30] MEDS: NS IV SCH ×2 (08:41→21:53)
[2016-12-30] MEDS: ASPIRIN 81 MG ENTERIC TAB PO SCH (08:42)
[2016-12-30] MEDS: K-PHOS ORIGINAL (POT.ACID PHOSPHATE) 500MG TAB PO SCH ×2 (08:42→20:09)
[2016-12-30] MEDS: ATENOLOL 50 MG TAB PO SCH ×2 (08:42→20:08)
[2016-12-30] MEDS: FLUoxetine 20 MG CAP PO SCH (08:43)
[2016-12-30] MEDS: amLODIPine 10 MG TAB PO SCH (08:43)
[2016-12-30 11:14] LABS: ALBUMIN 3.48 GM/DL (3.29-5.55); GAMMA GLOBULIN % 16.3 % (11.1-18.8)
[2016-12-30 12:00] VITALS: BP 137/83
[2016-12-30 16:00] VITALS: BP 143/74
[2016-12-30 16:43] LABS: IMMUNOGLOBULIN G 946 MG/DL (681-1648); IMMUNOGLOBULIN M 65.3 MG/DL (40-230)
[2016-12-30] MEDS: ENOXAPARIN 40 MG/0.4 ML SYRINGE (J1650) SC SCH (17:53)
[2016-12-30 18:16] LABS: IMMUNOGLOBULIN E 15.7 IU/ML (<100)
--- NOTE | 2016-12-30 18:28 | IPN ---
DATE: Ms. Cates is complaining of some back pain today, this is chronic pain, which is not changed in nature. She has <<0:19>> paraesthesias. No chest pain, not short of breath. Her mental status is much improved according to daughter at bed side. VITAL SIGNS: Temperature is 97.9, pulse 82, respiratory rate 18, blood pressure 137/83, 95% on room air. INS OUTS: Notable for positive fluid balance of 371, bowel movement yesterday. Weight is 87.6 kilos with a body mass index of 34.2. GENERAL: Awake, appropriately interactive, pleasantly conversant. LUNGS: Breathing is symmetric, rested. HEART: Regular rate and rhythm. No significant arhythmia on monitor. EXTREMITIES: No significant lower extremity edema. LABORATORY DATA: White count 8.,5, hemoglobin 11.2, BUN 11, creatinine 0.8, potassium 3.3 and magnesium 1.2. Immunotyping is pending. MY ASSESSMENT IS FOLLOWS: 66-year-old with hypocalcemia of malignancy. PLAN IS ASA FOLLOWS: 1. The patient is most likely has hypercalcemia of malignancy, underlying malignancy may be multiple myeloma, Dr. Moeller will plan to see the patient today. Patient has an element of acute kidney injury, is being followed by Dr. Shaw who has also addressed the patient's hypokalemia and hypomagnesemia today. 2. Patient has metabolic encephalopathy most likely related to hypercalcemia, this is much improved, although she is not entirely back to baseline. 3. Patient has history of fibromyalgia. 4. Patient has hypertension. 5. Deep vein thrombosis prophylaxis is Lovenox.
[2016-12-30 19:34] VITALS: BP 136/78
[2016-12-30] MEDS: EZETIMIBE 10 MG TAB (ZETIA) PO SCH (20:08)
[2016-12-30] MEDS: SIMVASTATIN 20 MG TAB PO SCH (20:09)
[2016-12-30 21:51] VITALS: BP 140/74
[2016-12-31 04:10] VITALS: BP 137/77
[2016-12-31] MEDS: ACETAMINOPHEN TAB 650MG DOSE (2X325MG) PO PRN (04:15)
[2016-12-31 05:48] LABS: MEAN CORPUSCULAR HGB CONC 34.6 g/dl (32.0-36.5); MEAN CORPUSCULAR VOLUME 83.9 fl (80.0-96.0); RED CELL DISTRIBUTION WIDTH 13.6 % (11.5-14.5)
[2016-12-31 06:06] LABS: ALBUMIN 2.5 GM/DL (3.2-5.2); ANION GAP 13 MEQ/L (8-16); BLOOD UREA NITROGEN 11 MG/DL (7-18); CALCIUM LEVEL 6.5 MG/DL (8.8-10.2); CARBON DIOXIDE LEVEL 20 MEQ/L (21-32); CHLORIDE LEVEL 106 MEQ/L (98-107); CREATININE FOR GFR 0.71 MG/DL (0.55-1.02); GLOMERULAR FILTRATION RATE > 60.0 (>45); GLUCOSE, FASTING 84 MG/DL (80-110); MAGNESIUM LEVEL 1.2 MG/DL (1.8-2.4); PHOSPHORUS LEVEL 2.9 MG/DL (2.5-4.9); POTASSIUM SERUM 3.3 MEQ/L (3.5-5.1); SODIUM LEVEL 139 MEQ/L (136-145)
--- NOTE | 2016-12-31 06:34 | IPN ---
DATE: 12/30/2016 Mrs. Cates is seen this morning on her bedside. She is feeling much better and is much more alert and at her baseline mentation now. She denies any nausea, vomiting, dyspnea or chest pain. She has no fever or chills and reports that her strength is improving as well as her appetite. PHYSICAL EXAMINATION: Temperature 98.4 degrees Fahrenheit, heart rate 84 per minute and respiratory rate 18 per minute. Blood pressure 135/83 mmHg and oxygen saturation 96% on room air. Head: Is atraumatic. Pupils are equal and reactive to light and sclera is anicteric. Ears, nose and throat are unremarkable. She has no oral thrush or ulcers. Heart: Sounds are regular and lungs clear to auscultation. Abdomen: Soft and nontender and without a palpable organomegaly. Bowel sounds are normal. Extremities have no cyanosis or clubbing. Skin has no rash or ulcers. Neurologically she has improved back to her baseline. Today's labs show sodium level 138, potassium 3.3, BUN 11 and creatinine 0.8. Calcium level is 7.2 and albumin 2.7. Phosphorus is now up at 3.4 and magnesium 1.2. 24-hour urine protein has been completed, however, protein electrophoresis is still pending. A spot urine showed only 17 mg protein per deciliter. PROBLEMS: 1. Hypercalcemia. Calcium level has improved and in fact it is slightly low today. Her corrected calcium is about 8.5 given her albumin level of 2.7. I am stopping her calcitonin and we will continue to monitor her electrolytes on a daily basis. She is now eating normal so we anticipate improvement in her calcium level. 2. Hypokalemia. Potassium level is only slightly better. She is tolerating oral intake well. Potassium chloride 40 mEq by mouth is being given and she will continue to receive potassium phosphate 40 mEq in each liter of IV fluid. 3. Hypomagnesemia. The patient will be given 1 gram of magnesium sulfate intravenously today and will recheck her magnesium level tomorrow. 4. Hypophosphatemia. Her phosphorus level has improved to normal and she is currently receiving oral potassium phosphate in addition to intravenous potassium phosphate. Will consider to stop her potassium phosphate in next 24 hours. 5. Lytic bone lesions. We are waiting for oncology consultation. The patient likely has some kind of malignancy. Urine protein electrophoresis and serum protein electrophoresis are still pending. 6. Generalized weakness and metabolic encephalopathy. Her weakness has improved significantly. Encephalopathy has also almost completely resolved.
[2016-12-31 06:48] VITALS: BP 128/78
[2016-12-31] MEDS: **hydrALAZINE HCL** 25 MG TAB PO SCH ×3 (06:51→22:36)
[2016-12-31] MEDS ORDERED: MAG SULF 1GM/100ML (MAG RUN) 1 GM in APPROPRIATE DILUENT 1 EA IV ONE (07:30)
[2016-12-31 08:00] VITALS: BP 155/82
[2016-12-31] MEDS ORDERED: CALCIUM CHLORIDE 10% 1 GM in D5W 100 ML IV ONE (08:00)
[2016-12-31] MEDS: FLUoxetine 20 MG CAP PO SCH (09:17)
[2016-12-31] MEDS: OMEGA-3 1050MG CAPSULE PO SCH ×3 (09:17→22:37)
[2016-12-31] MEDS: amLODIPine 10 MG TAB PO SCH (09:17)
[2016-12-31] MEDS: K-PHOS ORIGINAL (POT.ACID PHOSPHATE) 500MG TAB PO SCH ×2 (09:18→22:37)
[2016-12-31] MEDS: ANEXSIA, NORCO 7.5MG/325MG TABLET(HYDROCODONE/APAP) PO PRN ×3 (09:23→22:36)
[2016-12-31] MEDS: LIDOCAINE 5% (LIDODERM) PATCH TD SCH (09:24)
[2016-12-31] MEDS: ATENOLOL 50 MG TAB PO SCH ×2 (09:24→22:36)
[2016-12-31 12:00] VITALS: BP 134/69
[2016-12-31] MEDS: POTASSIUM PHOSPHATE IV SCH (13:36)
[2016-12-31] MEDS: NS IV SCH (13:36)
[2016-12-31 16:00] VITALS: BP 144/77
--- NOTE | 2016-12-31 17:36 | IPN ---
DATE: 12/31/2016 Ms. Cates is feeling well today. She has been reticent to get out of bed because of back pain but has also been reticent to use pain medication. She has agreed to try oral [place] as well as a Lidoderm patch. Temperature is 98, pulse 82, respirations 18, blood pressure 155/82, 96% on room air. Intake and output notable for positive fluid balance of 600. One bowel movement yesterday. She is awake. Appropriately interactive. Pleasantly conversant in no acute distress. Breathing is symmetrical and rested. Inspiratory to expiratory (I-to-E) ratio is 1:3. Heart is distant sounding. Normal S1, S2. No significant arrhythmia on the monitor. Abdomen soft, doughy, nontender. No significant lower extremity edema. White count 9, hemoglobin 10.8. Potassium 3.3, magnesium 1.2. Albumin 2.5. ASSESSMENT: This is a 66-year-old with hypercalcemia of malignancy. PLAN: 1. Patient has hypercalcemia of malignancy. Underlying malignancy may be multiple myeloma. Awaiting input from oncology. 2. Patient has electrolyte abnormalities, including hypokalemia, hypomagnesemia, hypophosphatemia. Did discuss this case in person with Dr Shaw. 3. Patient has history of fibromyalgia. 4. Patient has history of hypertension. 5. Patient had metabolic encephalopathy at the time of presentation, which has resolved. 6. Patient has appropriate deep vein thrombosis (DVT) prophylaxis.
--- NOTE | 2016-12-31 20:58 | CR ---
DATE OF CONSULTATION: 12/31/2015 REASON FOR CONSULTATION: Hypercalcemia with low albumin and lytic lesions concerning for myeloma. REFERRING PHYSICIAN: Dr. Mike Betancourt HISTORY OF PRESENT ILLNESS: Ms. Cates is a 66-year-old female who was admitted on 12/27/2016 after presenting with generalized weakness and change in mental status. On evaluation, she was noted to have hypercalcemia with a calcium of 14.9. A CT of the head done on 12/27/2016 noted some lucencies in the skull, for which a subsequent bone survey was done revealing lucencies in the calvarium, pelvis, hips, proximal subtrochanteric, femoral shaft and ribs suggestive of metastatic disease. Chemistry panel was also notable for hypoalbuminemia. SPEP revealed monoclonal band with hypoalbuminemia. Hematology oncology was consulted to see this patient regarding these laboratory derangements and imaging findings. PAST MEDICAL HISTORY: 1. Hypertension. 2. Fibromyalgia. 3. Hyperlipidemia. PAST SURGICAL HISTORY: 1. Hysterectomy. 2. Appendectomy. 3. Tubal ligation. HOME MEDICATIONS: - amlodipine - aspirin - atenolol - calcium with vitamin D - chlorthalidone - Zetia - fish oil - fluoxetine - gabapentin - losartan - potassium - simvastatin - vitamin D - amiloride - hydroxyzine - tizanidine ALLERGIES: Include: METRONIDAZOLE SULFA SOCIAL HISTORY: She has a remote history of tobacco use, she quit about 40 years ago. Occasional alcohol. 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 She has three children and three grandchildren. She lives by herself. FAMILY HISTORY: No history of malignancy in the family. PHYSICAL EXAMINATION: VITAL SIGNS: Temperature is 98.8, pulse is 83, blood pressure 134/69. GENERAL: She is lying in the hospital bed. She is in no acute distress. Her daughter is at the bedside. HEENT: NECK: Supple. HEART: Regular rate and rhythm. Normal S1, S2. LUNGS: Clear bilaterally. No wheezes, rhonchi or rales. ABDOMEN: Soft, tender to deep palpation in the left upper quadrant. Otherwise, no palpable hepatomegaly. Spleen is palpated 1 cm below the left costal margin. EXTREMITIES: No edema. LABORATORY DATA: As above, including urine total protein of 12.5, hemoglobin of 10.8 and was normal at 14.4 when she was admitted. White count 9,000, platelets of 204,000. Imaging findings, as discussed above. IMPRESSION/PLAN: 66-year-old female with hypercalcemia, hypoalbuminemia, and suspicious lesions on a bone survey concerning for plasma cell dyscrasia. I have ordered serum immunotyping and serum free light chains, which are pending. Discussed with the patient at bedside that I would get a definitive diagnosis before pursuing further workup. In addition, I would like to obtain a bone scan to further characterize her bone lesions. Once she is discharged as an outpatient, she will followup in the oncology clinic and continue further workup and treatment. Her hypercalcemia has now been brought under control and I will followup on additional laboratories. All questions were answered.
[2016-12-31 22:00] VITALS: BP 134/71
[2016-12-31] MEDS: ENOXAPARIN 40 MG/0.4 ML SYRINGE (J1650) SC SCH (22:35)
[2016-12-31] MEDS: EZETIMIBE 10 MG TAB (ZETIA) PO SCH (22:36)
[2016-12-31] MEDS: **NOTE PATIENT COMMENT** MISC XX SCH (22:37)
[2016-12-31] MEDS: SIMVASTATIN 20 MG TAB PO SCH (22:37)
[2017-01-01] MEDS: NS IV SCH (01:20)
[2017-01-01] MEDS: POTASSIUM PHOSPHATE IV SCH (01:20)
[2017-01-01] MEDS: LIDOCAINE 5% (LIDODERM) PATCH TD SCH (05:46)
[2017-01-01] MEDS: **hydrALAZINE HCL** 25 MG TAB PO SCH ×3 (05:47→20:52)
[2017-01-01 06:00] VITALS: BP 128/67
--- NOTE | 2017-01-01 06:18 | IPN ---
DATE OF VISIT: 12/31/2016 Mrs. Cates is seen this morning on her bedside. She reports feeling better and denies any nausea, vomiting, headache, dizziness, fever or chills. She is tolerating oral intake well. PHYSICAL EXAMINATION: VITAL SIGNS: Temperature 98.8 degrees Fahrenheit, heart rate 83 per minute and respiratory rate 18 per minute. Blood pressure 134/70 mmHg and oxygen saturation 96% on room air. HEENT: Head is atraumatic. Pupils are equal and reactive to light and sclera is anicteric. Ears, nose and throat are unremarkable. NECK: Neck is supple and has mild jugular venous distention (JVD). There is no thyroid enlargement and trachea is midline. HEART: Sounds are regular. LUNGS: Clear to auscultation. ABDOMEN: Soft and nontender and without a palpable organomegaly. Bowel sounds are normal. EXTREMITIES: No cyanosis or clubbing. SKIN: No rash or ulcers. NEUROLOGICALLY: She is awake, alert and oriented time three. LABORATORY DATA: Today's labs show WBC count 9.0, hemoglobin 10.8 and hematocrit 31.2. Sodium is 139 and potassium 3.3. Calcium level 6.5, phosphorus 2.9 and magnesium 1.2. Albumin level 2.5. Serum protein electrophoresis has already been resulted which did not show any significant evidence for a monoclonal protein band. Free urine light chains are still pending. Total urine protein was only 12.5 mg/dl. PROBLEMS: 1. Hypercalcemia. Her calcium level has improved and in fact today it is abnormally low. We have already stopped her calcitonin. We will give her intravenous calcium chloride 1 gram today and recheck her calcium level tomorrow morning. 2. Hypophosphatemia. Phosphorus level is still within normal range and she will continue with current supplement in the intravenous (IV) fluid and oral potassium phosphate. 3. Hypokalemia. The patient has chronic history of hypokalemia and potassium level is unchanged. She is currently receiving supplemental potassium both in IV fluid and oral K-Phos. 4. Hypomagnesemia. No improvement with IV magnesium sulfate given yesterday. We will give her another dose of magnesium sulfate 1 gram intravenously today and recheck her magnesium level tomorrow morning. 5. Lytic bone lesions. The patient likely has malignancy and an oncology consultation is still pending. At present we are waiting for her immunoelectrophoresis and then the possibility of a bone marrow biopsy by oncology. 6. Metabolic encephalopathy and generalized weakness. Encephalopathy has now improved and weakness has also improved. No specific intervention is indicated at this point.
[2017-01-01 07:19] LABS: MEAN CORPUSCULAR HEMOGLOBIN 28.1 pg (27.0-33.0); MEAN CORPUSCULAR HGB CONC 33.8 g/dl (32.0-36.5); MEAN CORPUSCULAR VOLUME 83.1 fl (80.0-96.0); RED CELL DISTRIBUTION WIDTH 13.7 % (11.5-14.5); WHITE BLOOD COUNT 11.1 K/mm3 (4.0-10.0)
[2017-01-01 07:36] LABS: ALBUMIN 2.6 GM/DL (3.2-5.2); ANION GAP 13 MEQ/L (8-16); BLOOD UREA NITROGEN 7 MG/DL (7-18); CALCIUM LEVEL 6.4 MG/DL (8.8-10.2); CARBON DIOXIDE LEVEL 19 MEQ/L (21-32); CHLORIDE LEVEL 108 MEQ/L (98-107); CREATININE FOR GFR 0.69 MG/DL (0.55-1.02); GLOMERULAR FILTRATION RATE > 60.0 (>45); GLUCOSE, FASTING 87 MG/DL (80-110); MAGNESIUM LEVEL 1.2 MG/DL (1.8-2.4); POTASSIUM SERUM 3.4 MEQ/L (3.5-5.1); SODIUM LEVEL 140 MEQ/L (136-145)
[2017-01-01] MEDS: ASPIRIN 81 MG ENTERIC TAB PO SCH (07:59)
[2017-01-01] MEDS: FLUoxetine 20 MG CAP PO SCH (07:59)
[2017-01-01] MEDS: amLODIPine 10 MG TAB PO SCH (07:59)
[2017-01-01] MEDS: OMEGA-3 1050MG CAPSULE PO SCH ×3 (07:59→20:51)
[2017-01-01] MEDS: ATENOLOL 50 MG TAB PO SCH ×2 (07:59→20:51)
[2017-01-01] MEDS: ANEXSIA, NORCO 7.5MG/325MG TABLET(HYDROCODONE/APAP) PO PRN (08:00)
[2017-01-01 08:07] LABS: FREE KAPPA LIGHT CHAINS URINE 27.6 mg/L (1.35-24.19); FREE LAMBDA LIGHT CHAINS URINE 3.23 mg/L (0.24-6.66)
[2017-01-01] MEDS ORDERED: MAG SULF 1GM/100ML (MAG RUN) 1 GM in APPROPRIATE DILUENT 1 EA IV ONE ×2 (09:00→14:00)
--- NOTE | 2017-01-01 11:03 | REP ---
WHOLE BODY BONE SCAN: Follow the intravenous administration of 22 mCi of technetium-99m MDP, patient's whole body is imaged is in the anterior and posterior projections. Additional oblique images of the thoracic and pelvic regions are performed as well as lateral views of the calvarium, knees, and feet. Multiple foci of increased uptake are seen throughout the calvarium. There are multiple foci of increased uptake in bilateral ribs. There may be some mild scattered subtle increased uptake in portions of the vertebral bodies. I suspect subtle increased uptake in the right femoral head region, suspicious for uptake in a metastatic lesion. No other definite areas of focal increased uptake are seen in the axial or appendicular skeleton. There is mild arthritic uptake at bilateral knees and in the ankles and feet. IMPRESSION: Multiple foci of increased uptake of radiotracer throughout the calvarium and throughout bilateral ribs compatible with metastatic lesions. Questionable subtle increased uptake in vertebral bodies, with possible metastatic involvement. MRI would be recommended to further evaluate. I suspect subtle increased uptake in the right femoral head region, suspicious for uptake in a metastatic lesion. No other definite abnormal uptake is seen scintigraphically. Signed by Christiano Alexander MD 01/01/2017 01:20 P
[2017-01-01] MEDS: K-PHOS ORIGINAL (POT.ACID PHOSPHATE) 500MG TAB PO SCH ×2 (11:46→20:51)
--- NOTE | 2017-01-01 16:11 | IPN ---
DATE: 01/01/2017 Ms. Cates says she is feeling a little bit better today, although her daughter who is at bedside calls this into question and says that her mother is still in some pain. Temperature 97.4, pulse 86, respiratory rate 18, blood pressure 128/67, 95% on room air. Intake and output (I and O) notable for a negative fluid balance of -1080. No bowel movements noted. She is awake, appropriately interactive. She seems somewhat anxious. Clearly uncomfortable in the hospital. Mucous membranes moist. Neck supple. Breathing symmetrical and rested. Heart is in regular rhythm. Abdomen, soft, dough, nontender. White cell count 11.1, hemoglobin 11.2. Carbon dioxide 19. Potassium 3.4. Magnesium is 1.2. ASSESSMENT: This is a 66-year-old with hypercalcemia of malignancy. PLAN: 1. The patient's hypercalcemia of malignancy has resolved at this point. Other electrolyte abnormalities including hypokalemia and hypomagnesemia is being followed by Dr. Shaw. 2. The patient has hypertension. 3. The patient has metabolic encephalopathy which has resolved. 4. The patient has appropriate deep venous thrombosis (DVT) prophylaxis. 5. The patient is being followed by physical therapy. She declined therapy in the morning, but will attempt this afternoon.
[2017-01-01] MEDS: ENOXAPARIN 40 MG/0.4 ML SYRINGE (J1650) SC SCH (17:40)
[2017-01-01] MEDS ORDERED: CALCIUM GLUCONATE 1,000 MG in D5W MINI-BAG PLUS 100 ML IV ONE (18:45)
[2017-01-01] MEDS: ACETAMINOPHEN TAB 650MG DOSE (2X325MG) PO PRN (20:50)
[2017-01-01] MEDS: SIMVASTATIN 20 MG TAB PO SCH (20:51)
[2017-01-01] MEDS: EZETIMIBE 10 MG TAB (ZETIA) PO SCH (20:51)
[2017-01-01] MEDS: **NOTE PATIENT COMMENT** MISC XX SCH (20:52)
[2017-01-01 22:00] VITALS: BP 137/73
[2017-01-02 00:06] LABS: FREE KAPPA LIGHT CHAINS SERUM 25.52 mg/L (3.30-19.40); FREE LAMBDA LIGHT CHAINS SERUM 20.58 mg/L (5.71-26.30); IMMUNOGLOBULIN D 3.42 mg/dL (<14.11); KAPPA/LAMBDA RATIO SERUM 1.24 (0.26-1.65)
[2017-01-02] MEDS: **hydrALAZINE HCL** 25 MG TAB PO SCH ×3 (05:35→22:06)
[2017-01-02 06:00] VITALS: BP 142/70
[2017-01-02 06:36] LABS: MEAN CORPUSCULAR HEMOGLOBIN 29.1 pg (27.0-33.0); MEAN CORPUSCULAR HGB CONC 34.9 g/dl (32.0-36.5); MEAN CORPUSCULAR VOLUME 83.2 fl (80.0-96.0); RED CELL DISTRIBUTION WIDTH 13.9 % (11.5-14.5); WHITE BLOOD COUNT 10.7 K/mm3 (4.0-10.0)
[2017-01-02 06:47] LABS: ALBUMIN 2.6 GM/DL (3.2-5.2); ANION GAP 12 MEQ/L (8-16); BLOOD UREA NITROGEN 6 MG/DL (7-18); CALCIUM LEVEL 7.1 MG/DL (8.8-10.2); CARBON DIOXIDE LEVEL 20 MEQ/L (21-32); CHLORIDE LEVEL 106 MEQ/L (98-107); CREATININE FOR GFR 0.69 MG/DL (0.55-1.02); GLOMERULAR FILTRATION RATE > 60.0 (>45); GLUCOSE, FASTING 103 MG/DL (80-110); MAGNESIUM LEVEL 1.6 MG/DL (1.8-2.4); SODIUM LEVEL 138 MEQ/L (136-145)
[2017-01-02 06:58] LABS: PHOSPHORUS LEVEL 1.5 MG/DL (2.5-4.9); POTASSIUM SERUM 2.9 MEQ/L (3.5-5.1)
[2017-01-02] MEDS: LIDOCAINE 5% (LIDODERM) PATCH TD SCH (08:14)
[2017-01-02] MEDS: OMEGA-3 1050MG CAPSULE PO SCH ×3 (08:15→22:05)
[2017-01-02] MEDS: ATENOLOL 50 MG TAB PO SCH ×2 (08:15→22:06)
[2017-01-02] MEDS: K-PHOS ORIGINAL (POT.ACID PHOSPHATE) 500MG TAB PO SCH ×2 (08:15→22:05)
[2017-01-02] MEDS: FLUoxetine 20 MG CAP PO SCH (08:15)
[2017-01-02] MEDS: amLODIPine 10 MG TAB PO SCH (08:15)
[2017-01-02] MEDS: ACETAMINOPHEN TAB 650MG DOSE (2X325MG) PO PRN ×2 (08:16→22:05)
[2017-01-02] MEDS: NS 0.45% IV SCH ×2 (09:29→22:08)
[2017-01-02] MEDS: POTASSIUM PHOSPHATE IV SCH ×2 (09:29→22:08)
--- NOTE | 2017-01-02 13:03 | IPN ---
DATE: 01/02/2017 Mrs. Cates is seen this morning on her bedside. She is feeling better. However, continues to have pain in her lower back. She denies any nausea, vomiting, dyspnea or chest pain. She underwent bone scan yesterday which showed multiple lytic lesions in her skull, ribs, vertebrae, and pelvic bones. PHYSICAL EXAMINATION: Temperature is 98.4 degrees Fahrenheit, heart rate 85 per minute and respiratory rate 20 per minute. Blood pressure 142/70 mmHg and oxygen saturation 95% on room air. Head is atraumatic. Eyes, ears, nose and throat are unremarkable. Neck is supple and without jugular venous distention (JVD) or thyroid enlargement. Heart sounds are regular and lungs sound clear to auscultation bilaterally. Abdomen is soft and nontender and without a palpable organomegaly. Extremities have no cyanosis or clubbing. Skin has no rash or ulcers. Neurologically she is awake, alert and oriented times. Today's labs show WBC count 10.7, hemoglobin 11.0 and hematocrit 31.6. Platelets 291. Sodium 138 and potassium 2.9. CO2 is 20, BUN 6 and creatinine 0.69. Calcium level is 7.1, phosphorus 1.5 and magnesium 1.6. PROBLEMS: 1. Hypokalemia. Potassium level went low despite continued oral intake. Her IV fluid and potassium supplement was stopped yesterday. I feel that she will need further intravenous potassium phosphate and we will start her on half normal saline with 40 mEq of potassium phosphate in each liter at 75 mL/hour. 2. Hypophosphatemia. This is most likely related to her lytic bone lesions. Potassium phosphate is being added in the IV fluid. She is also taking oral potassium phosphate 1000 mg three times a day which will be continued. 3. Hypomagnesemia. She received two doses of magnesium runs yesterday and her magnesium level has improved to 1.6. At present we will watch and repeat her magnesium level tomorrow morning. 4. Multiple lytic bone lesions. Most likely metastatic malignancy. At this point workup is in progress. I feel that multiple myeloma has been ruled out as her urine protein electrophoresis did not show any M-spike and her urine light chains are only slightly elevated. DISPOSITION: I feel that the patient is not ready for discharge today due to significant electrolyte abnormalities. We will recheck her labs tomorrow morning.
[2017-01-02 14:00] VITALS: BP 123/67
[2017-01-02] MEDS: hydrOXYzine 50 MG TAB PO PRN ×2 (14:15→22:06)
[2017-01-02] MEDS: ENOXAPARIN 40 MG/0.4 ML SYRINGE (J1650) SC SCH (18:04)
--- NOTE | 2017-01-02 19:26 | IPN ---
DATE: 01/02/2017 Mrs. Cates is quite anxious today. She is worried about her diagnosis. She has had pain up to 7 out of 10, but has improved with the use of medications. Temperature is 98.3, pulse 84, respiratory rate 16, blood pressure 123/67, 95% on room air. Intake and output notable for a positive fluid balance of 1560, weight is 87.1 kg. She is awake, appropriately interactive, pleasantly conversant. Breathing is symmetrical, diminished. Heart is distant sounding. Normal S1, S2. Abdomen is soft, doughy, nontender. White cell count 10.7, hemoglobin 11, platelets of 291. Sodium 138, potassium 2.9, phosphorus is 1.5, magnesium is 1.6. ASSESSMENT: This is a 66-year-old with hypercalcemia of malignancy. PLAN: 1. The patient's hypercalcemia of malignancy is resolved at this point. The patient has other electrolyte abnormalities, including hypophosphatemia, hypomagnesemia, hypokalemia. I have discussed this case with Dr. Shaw, who is addressing these abnormalities. 2. The patient has hypertension. 3. The patient has resolved metabolic encephalopathy. The patient has a daughter and friend at bedside who think she is back to baseline. 4. The patient has appropriate deep vein thrombosis (DVT) prophylaxis. 5. The patient is being followed by physical therapy and is thought to be safe for discharge at this point. 6. The patient will need outpatient workup for her suspected malignancy. Dr. Moeller will follow as an outpatient.
[2017-01-02 22:00] VITALS: BP 135/74
[2017-01-02] MEDS: SIMVASTATIN 20 MG TAB PO SCH (22:06)
[2017-01-02] MEDS: **NOTE PATIENT COMMENT** MISC XX SCH (22:07)
[2017-01-02] MEDS: EZETIMIBE 10 MG TAB (ZETIA) PO SCH (22:07)
[2017-01-03 06:00] VITALS: BP 142/69
[2017-01-03] MEDS: **hydrALAZINE HCL** 25 MG TAB PO SCH ×3 (06:51→20:48)
[2017-01-03 06:54] LABS: MEAN CORPUSCULAR HEMOGLOBIN 28.8 pg (27.0-33.0); MEAN CORPUSCULAR HGB CONC 34.5 g/dl (32.0-36.5); MEAN CORPUSCULAR VOLUME 83.6 fl (80.0-96.0); WHITE BLOOD COUNT 9.9 K/mm3 (4.0-10.0)
[2017-01-03 06:58] LABS: ALBUMIN 2.6 GM/DL (3.2-5.2); ANION GAP 11 MEQ/L (8-16); BLOOD UREA NITROGEN 6 MG/DL (7-18); CARBON DIOXIDE LEVEL 20 MEQ/L (21-32); CHLORIDE LEVEL 110 MEQ/L (98-107); CREATININE FOR GFR 0.72 MG/DL (0.55-1.02); GLOMERULAR FILTRATION RATE > 60.0 (>45); GLUCOSE, FASTING 100 MG/DL (80-110); MAGNESIUM LEVEL 1.4 MG/DL (1.8-2.4); PHOSPHORUS LEVEL 3.3 MG/DL (2.5-4.9); POTASSIUM SERUM 3.4 MEQ/L (3.5-5.1); SODIUM LEVEL 141 MEQ/L (136-145)
[2017-01-03] MEDS ORDERED: SODIUM CHLORIDE NASAL 0.65% SPRAY BTL (OCEAN) PRN (07:30)
[2017-01-03] MEDS ORDERED: MAG SULF 1GM/100ML (MAG RUN) 1 GM in APPROPRIATE DILUENT 1 EA IV ONE (08:00)
[2017-01-03] MEDS: BICITRA 30ML SOLN UDC PO SCH ×2 (09:00→20:47)
[2017-01-03] MEDS: LIDOCAINE 5% (LIDODERM) PATCH TD SCH (09:00)
[2017-01-03] MEDS: FLUoxetine 20 MG CAP PO SCH (10:59)
[2017-01-03] MEDS: OMEGA-3 1050MG CAPSULE PO SCH ×3 (10:59→20:48)
[2017-01-03] MEDS: ATENOLOL 50 MG TAB PO SCH ×2 (10:59→20:48)
[2017-01-03] MEDS: K-PHOS ORIGINAL (POT.ACID PHOSPHATE) 500MG TAB PO SCH ×2 (11:00→22:51)
[2017-01-03] MEDS: amLODIPine 10 MG TAB PO SCH (11:00)
[2017-01-03] MEDS: ASPIRIN 81 MG ENTERIC TAB PO SCH (11:00)
[2017-01-03] MEDS ORDERED: POTASSIUM CHLORIDE 10 MEQ SR TABLET PO ONE (13:00)
[2017-01-03 14:00] VITALS: BP 164/73
[2017-01-03] MEDS: ANEXSIA, NORCO 7.5MG/325MG TABLET(HYDROCODONE/APAP) PO PRN (14:24)
[2017-01-03] MEDS ORDERED: CALCIUM GLUCONATE 1,000 MG in D5W MINI-BAG PLUS 100 ML IV ONE (15:00)
[2017-01-03] MEDS: ENOXAPARIN 40 MG/0.4 ML SYRINGE (J1650) SC SCH (18:15)
[2017-01-03] MEDS: VITAMIN D (CHOLECALCIFEROL) 400 INTERNATIONAL UNITS TAB PO SCH (18:23)
[2017-01-03] MEDS: SIMVASTATIN 20 MG TAB PO SCH (20:47)
[2017-01-03] MEDS: EZETIMIBE 10 MG TAB (ZETIA) PO SCH (20:47)
[2017-01-03] MEDS: **NOTE PATIENT COMMENT** MISC XX SCH (20:58)
[2017-01-03 22:00] VITALS: BP 156/75
[2017-01-04] MEDS: **hydrALAZINE HCL** 25 MG TAB PO SCH ×3 (05:38→20:49)
[2017-01-04 06:00] VITALS: BP 160/77
[2017-01-04 06:54] LABS: MEAN CORPUSCULAR HEMOGLOBIN 28.8 pg (27.0-33.0); MEAN CORPUSCULAR HGB CONC 34.5 g/dl (32.0-36.5); MEAN CORPUSCULAR VOLUME 83.6 fl (80.0-96.0); RED CELL DISTRIBUTION WIDTH 14.2 % (11.5-14.5); WHITE BLOOD COUNT 8.9 K/mm3 (4.0-10.0)
[2017-01-04 07:06] LABS: ALBUMIN 2.7 GM/DL (3.2-5.2); ANION GAP 12 MEQ/L (8-16); BLOOD UREA NITROGEN 6 MG/DL (7-18); CALCIUM LEVEL 7.1 MG/DL (8.8-10.2); CARBON DIOXIDE LEVEL 19 MEQ/L (21-32); CHLORIDE LEVEL 109 MEQ/L (98-107); CREATININE FOR GFR 0.68 MG/DL (0.55-1.02); GLOMERULAR FILTRATION RATE > 60.0 (>45); GLUCOSE, FASTING 94 MG/DL (80-110); MAGNESIUM LEVEL 1.5 MG/DL (1.8-2.4); PHOSPHORUS LEVEL 1.9 MG/DL (2.5-4.9); POTASSIUM SERUM 3.6 MEQ/L (3.5-5.1); SODIUM LEVEL 140 MEQ/L (136-145); URIC ACID 2.4 MG/DL (2.6-6.0)
[2017-01-04] MEDS: K-PHOS ORIGINAL (POT.ACID PHOSPHATE) 500MG TAB PO SCH (09:00)
[2017-01-04] MEDS ORDERED: CALCIUM/VITAMIN D 500 MG TAB PO SCH (09:00)
[2017-01-04] MEDS: amLODIPine 10 MG TAB PO SCH (09:19)
[2017-01-04] MEDS: OMEGA-3 1050MG CAPSULE PO SCH ×3 (09:19→20:49)
[2017-01-04] MEDS: VITAMIN D (CHOLECALCIFEROL) 400 INTERNATIONAL UNITS TAB PO SCH (09:19)
[2017-01-04] MEDS: LIDOCAINE 5% (LIDODERM) PATCH TD SCH (09:20)
[2017-01-04] MEDS: ATENOLOL 50 MG TAB PO SCH ×2 (09:20→20:50)
[2017-01-04] MEDS: FLUoxetine 20 MG CAP PO SCH (09:20)
[2017-01-04] MEDS: BICITRA 30ML SOLN UDC PO SCH ×2 (09:20→20:50)
[2017-01-04] MEDS ORDERED: MAG SULF 1GM/100ML (MAG RUN) 1 GM in APPROPRIATE DILUENT 1 EA IV ONE (10:00)
[2017-01-04] MEDS: MAGNESIUM CHLORIDE 64 MG TABCR (SLO MAG) PO SCH (10:23)
[2017-01-04] MEDS ORDERED: CALCIUM GLUCONATE 1,000 MG in D5W MINI-BAG PLUS 100 ML IV ONE (11:00)
[2017-01-04] MEDS ORDERED: POTASSIUM PHOSPHATE INJ 30 MMOL in D5W 500 ML IV ONE (12:00)
[2017-01-04] MEDS: LOSARTAN 25 MG TAB PO SCH (12:41)
[2017-01-04 12:42] VITALS: BP 178/86
[2017-01-04 14:00] VITALS: BP 150/77
[2017-01-04] MEDS: NEUTRA-PHOS 1.25 GM PACKET PO SCH ×2 (15:08→20:50)
[2017-01-04] MEDS: ENOXAPARIN 40 MG/0.4 ML SYRINGE (J1650) SC SCH (17:50)
--- NOTE | 2017-01-04 20:28 | IPN ---
DATE: 01/04/2017 SUBJECTIVE: The patient was seen and examined at the bedside today in the morning. She was feeling much better. She did not have any active complaints. Her renal function is stable; however, she continues to have multiple electrolyte abnormalities despite oral repletion of electrolytes. REVIEW OF SYSTEMS: The patient denies any fever, chills, rigors, headache, nausea, vomiting, chest pain, shortness of breath, pain in the abdomen, constipation, or diarrhea. The rest of the review of systems is negative. OBJECTIVE: VITAL SIGNS: Temperature is 99.1 degrees Fahrenheit. Blood pressure is 150/77, pulse is 86, respiratory rate of 20, saturating 96% on room air. Intake and output: Urine output was not recorded. The patient had four voids yesterday and two voids so far today since overnight. PHYSICAL EXAMINATION: GENERAL: The is awake, alert, oriented times three. Sitting in the bed. No apparent distress. HEAD AND NECK EXAM: Extraocular muscles intact. Pupils are equal, round, and reactive to light. Mucous membranes are moist. NECK: Supple. There is no jugular venous distention (JVD). CARDIOVASCULAR: S1, S2. Regular rate. No murmur, rub or gallop. RESPIRATORY: Chest is clear to auscultation bilaterally. Bilateral equal air entry. No rales or rhonchi. ABDOMEN: Soft. Positive bowel sounds. Nontender. No ascites. No organomegaly. EXTREMITIES: No clubbing or cyanosis. Pulses are 2+. NEUROLOGIC: No focal neurological deficits. Power is 5/5 in all extremities. PSYCHIATRIC: Normal mood and affect. LABORATORY REVIEW: Complete blood count (CBC) showed a WBC of 8.9, hemoglobin 10.8, platelets are 312. Urinalysis showed 2+ protein, leukocyte esterase was 3+, WBC too numerous to count. Basic metabolic panel (BMP) showed sodium 140, potassium 3.6, chloride 109, bicarbonate is 19. BUN is 6, creatinine is 0.68. Uric acid 2.4. Calcium is 7.1. Ionized calcium is 3.8. Phosphorous is 1.9. Magnesium is 1.5. Albumin is 2.7. Microbiology: Urine culture is pending. CURRENT MEDICATIONS: The patient's medications were all reviewed by me. She got another dose of calcium gluconate 1 gram intravenously today and another dose of magnesium sulfate 1 gram IV was also ordered. Potassium phosphate 30 mEq intravenously one dose was ordered. She has been started on calcium plus vitamin D 500 mg by mouth daily. She has been started on Omnicef 300 mg by mouth twice a day. She was started on losartan 25 mg by mouth daily this morning, magnesium chloride 64 mg by mouth daily was added this morning, and her potassium phosphate tablet has been stopped. She has been started on Nutra phos two packets by mouth three times a day with meals. There is no other change in the medications today as compared with yesterday. ASSESSMENT: 66-year-old female admitted this time because of hypercalcemia, psychosis and multiple lytic bone lesions, primary malignancy is unknown at this time. Nephrology service following the patient for management of acute kidney injury and multiple electrolyte abnormalities. PLAN: 1. Acute kidney injury. The patient's renal function has improved at this time. Acute kidney injury was secondary to hypercalcemia and volume depletion. Creatinine is stable at 0.68. 2. Hypocalcemia. The patient was initially hypocalcemic. She required IV fluids, Calcitonin and IV zoledronic acid. After that, slowly her calcium levels have decreased. Her ionized calcium level is 3.8 today. I ordered a dose of calcium gluconate 1 gram IV and I have started her on calcium and vitamin D tablets one tablet by mouth daily as well. 3. Hypophosphatemia. The patient was on oral phosphorous. Phosphorous level has dropped to 1.9 today. PTH levels were actually low. The patient got biphosphonate a few days ago. I have increased the oral phosphorous dose to Neutro-Phos two packets by mouth three times a day with meals and I have ordered a dose of potassium phosphate 30 mEq IV times one dose today. 4. Hypomagnesemia. The patient's magnesium level is 1.5. She was given a dose of magnesium sulfate 1 gram IV and I have started her on magnesium chloride 64 mg by mouth daily. 5. Hypertension. The patient's blood pressures were running high in the 160s and 170s. Her qpsprdrxpxv-xoctmqmnuv-bfpwka (SUDEEP) inhibitor was stopped on admission because of acute renal failure. I have restarted her on losartan 25 mg by mouth daily. Continue the rest of the antihypertensive medications. If blood pressure remains high, then losartan dose can be slowly increased to 50 mg by mouth daily. 6. Multiple lytic bone lesions. Multiple myeloma workup was negative; however, the rest of the primary malignancy workup will be done as an outpatient once the patient is discharged from the hospital. 7. Disposition. The patient has multiple electrolyte abnormalities requiring IV and oral repletion. If the patient's electrolytes remain stable by tomorrow then she can be discharged home from nephrology standpoint. The plan of care was discussed with the hospitalist team, Dr. Mike Betancourt.
[2017-01-04] MEDS: CEFDINIR 300 MG CAP (OMNICEF) PO SCH (20:48)
[2017-01-04] MEDS: EZETIMIBE 10 MG TAB (ZETIA) PO SCH (20:49)
[2017-01-04] MEDS: SIMVASTATIN 20 MG TAB PO SCH (20:49)
[2017-01-04] MEDS: **NOTE PATIENT COMMENT** MISC XX SCH (20:50)
[2017-01-04 22:00] VITALS: BP 134/73
[2017-01-04] MEDS: hydrOXYzine 50 MG TAB PO PRN (22:28)
[2017-01-05 06:00] VITALS: BP 136/87
[2017-01-05] MEDS: **hydrALAZINE HCL** 25 MG TAB PO SCH ×2 (06:36→14:36)
[2017-01-05 07:01] LABS: IONIZED CALCIUM 4.1 MG/DL (4.5-5.3)
[2017-01-05 07:08] LABS: MEAN CORPUSCULAR HGB CONC 34.8 g/dl (32.0-36.5); MEAN CORPUSCULAR VOLUME 83.5 fl (80.0-96.0); RED CELL DISTRIBUTION WIDTH 14.5 % (11.5-14.5); WHITE BLOOD COUNT 8.9 K/mm3 (4.0-10.0)
[2017-01-05 07:22] LABS: MAGNESIUM LEVEL 1.8 MG/DL (1.8-2.4)
--- NOTE | 2017-01-05 07:40 | IPN ---
DATE: 01/03/2017 Mrs. Cates is feeling well today. She has no complaints of chest pain, shortness of breath. Still anxious about her diagnosis. Does have intermittent back and neck pain. She is taking pain medication with good effect. Temperature is 99, pulse 89, respiratory rate 18, blood pressure 142/69, 94% on room air. Intake and output notable for a positive fluid balance of 2361. She did have bowel movement yesterday. Breathing is symmetrical, rested. Heart is in a regular rate and rhythm. Abdomen is soft, doughy, nontender. White cell count 9.9, hemoglobin 10.6, platelets of 288. Potassium 3.4, magnesium 1.4, phosphorus 3.3. My assessment is as follows: This is a 66-year-old who presented with hypercalcemia of malignancy. Plan is as follows: 1. Hypercalcemia is adequately managed at this point. Other electrolyte abnormalities are being managed by Dr. Negrete. Hopefully, we can discharge her in the next 1-2 days. 2. Patient has hypertension. 3. Patient has resolved metabolic encephalopathy. 4. Patient has complained of some nasal congestion and has been offered some nasal saline. 5. Patient has deep vein thrombosis (DVT) prophylaxis. 6. Patient is being followed by physical therapy and is safe for discharge with a rolling walker at this point. Plans to stay with her daughter upon discharge. 7. Patient will need outpatient workup for her suspected malignancy. Dr. Moeller is following as an outpatient.
[2017-01-05 08:54] LABS: ALBUMIN 2.9 GM/DL (3.2-5.2); BLOOD UREA NITROGEN 6 MG/DL (7-18); CALCIUM LEVEL 7.7 MG/DL (8.8-10.2); CHLORIDE LEVEL 109 MEQ/L (98-107); GLUCOSE, FASTING 106 MG/DL (80-110); PHOSPHORUS LEVEL 2.2 MG/DL (2.5-4.9); POTASSIUM SERUM 3.6 MEQ/L (3.5-5.1); SODIUM LEVEL 142 MEQ/L (136-145)
[2017-01-05] MEDS ORDERED: CALCIUM/VITAMIN D 500 MG TAB PO SCH (09:00)
[2017-01-05 09:01] LABS: ANION GAP 11 MEQ/L (8-16); CARBON DIOXIDE LEVEL 22 MEQ/L (21-32)
--- NOTE | 2017-01-05 09:02 | IPN ---
DATE: 01/03/2017 SUBJECTIVE: Patient was seen and examined at the bedside today in the morning. She was feeling much better. She was eating her breakfast this morning. Her renal function is stable. However, she continues to have multiple electrolyte abnormalities, including hypokalemia, hypocalcemia and hypomagnesemia. REVIEW OF SYSTEMS: Patient denies any fever, chills, rigors, headache, nausea, vomiting, chest pain, shortness of breath, pain in abdomen, constipation, or diarrhea. Her mental status and symptoms of psychosis are also significantly better. OBJECTIVE: VITAL SIGNS: Temperature is 96.7 degrees Fahrenheit. Blood pressure is 142/69, pulse is 81, respiratory rate of 16, saturating 95% on room air. INTAKE AND OUTPUT: Urine output is not recorded at this time. Weight on the bed scale was 87 kg yesterday. PHYSICAL EXAMINATION: GENERAL: Patient is awake, alert, oriented times three. Sitting in the bed. No apparent distress. HEAD AND NECK EXAM: Extraocular muscles intact. Pupils equal, round and reactive to light. Mucous membranes are moist. Neck is supple. There is no jugular venous distention (JVD). CARDIOVASCULAR: S1, S2. Regular rate. No murmur, rub or gallop. RESPIRATORY: Chest is clear to auscultation bilaterally. Bilateral equal air entry. ABDOMEN: Is soft. Positive bowel sounds. Nontender. No ascites. No organomegaly. EXTREMITIES: No clubbing or cyanosis. No edema. Pulses are 2+. CENTRAL NERVOUS SYSTEM (TRANSMISSION ASSEMBLER): No focal neurological deficits. Power is 5/5 in all extremities. LABORATORY REVIEW: CBC showed WBC 9.9, hemoglobin 10.6, platelets are 288. BMP showed sodium 141, potassium 3.4, chloride 110, bicarbonate is 20. BUN is 6, creatinine 0.72. Calcium was 7. Phosphorous is 3.3. Magnesium is 1.4. Albumin was 2.6. CURRENT MEDICATIONS: The patient's medications were all reviewed by me. Patient was given a dose of calcium gluconate 1 gram IV today morning. She was also given magnesium sulfate 1 gram IV this morning. She has been started on Bicitra 15 mL by mouth twice a day. She was also given potassium chloride 40 mEq by mouth, one dose today, and she was started on vitamin D 400 units by mouth daily today morning. ASSESSMENT: Janine Cates is a 66-year-old female who was initially admitted with hypercalcemia, acute kidney injury and multiple lytic skull lesions. Nephrology service following the patient for management of acute kidney injury and electrolyte abnormalities. PLAN: 1. Hypokalemia. The patient's potassium is at 3.4. She was getting IV potassium phosphate in the IV fluids. I have stopped the IV fluids at this time. I have given her a dose of potassium chloride 40 mEq by mouth times one dose. 2. Hypophosphatemia. The patient's phosphorous is better as compared with the yesterday. She was getting IV potassium phosphorous and oral potassium phosphorus as well. Her phosphorus is 3.3. Continue the current dose of potassium phosphate 1 gram by mouth twice a day. 3. Hypomagnesemia. The patient's magnesium was still low today. It is 1.4. I have ordered a repeat dose of magnesium sulfate 1 gram IV. 4. Hypocalcemia. The patient's corrected calcium for hypoalbuminemia is still low. I am going to check her ionized calcium level tomorrow. However, I am going to give her a dose of calcium gluconate today. Patient initially was hypercalcemic, but after treatment with zoledronic acid and Calcitonin, she has become hypocalcemic now. 5. Vitamin D deficiency. The patient's vitamin D level is less than 10. Initially, vitamin D was not started because of hypercalcemia. Now, I am going start the patient on vitamin D 400 international units by mouth daily. 6. Multiple lytic bone lesions. The patient has metastatic malignancy. Primary is unknown. However, multiple myeloma workup is negative so for. Patient will get rest of the workup done as outpatient once he is discharged from the hospital. DISCHARGE PLANNING: If the patient still has multiple electrolyte abnormalities, it is not safe to send the patient home with these abnormalities. If the patient's electrolyte levels are stabilized by tomorrow, then we shall plan to send her home tomorrow and then can followup as outpatient with nephrology and hematology/oncology. Plan of care was discussed with the hospitalist team, Dr. Mike Betancourt.
[2017-01-05] MEDS: FLUoxetine 20 MG CAP PO SCH (09:28)
[2017-01-05] MEDS: NEUTRA-PHOS 1.25 GM PACKET PO SCH ×2 (09:28→16:48)
[2017-01-05] MEDS: OMEGA-3 1050MG CAPSULE PO SCH ×2 (09:29→16:48)
[2017-01-05] MEDS: CEFDINIR 300 MG CAP (OMNICEF) PO SCH (09:29)
[2017-01-05] MEDS: amLODIPine 10 MG TAB PO SCH (09:29)
[2017-01-05] MEDS: LIDOCAINE 5% (LIDODERM) PATCH TD SCH (09:29)
[2017-01-05] MEDS: ATENOLOL 50 MG TAB PO SCH (09:30)
[2017-01-05] MEDS: ANEXSIA, NORCO 7.5MG/325MG TABLET(HYDROCODONE/APAP) PO PRN ×2 (09:30→14:36)
[2017-01-05] MEDS: MAGNESIUM CHLORIDE 64 MG TABCR (SLO MAG) PO SCH (09:31)
[2017-01-05] MEDS: BICITRA 30ML SOLN UDC PO SCH (09:31)
[2017-01-05] MEDS: ASPIRIN 81 MG ENTERIC TAB PO SCH (09:31)
[2017-01-05] MEDS: LOSARTAN 25 MG TAB PO SCH (09:31)
[2017-01-05] MEDS ORDERED: COZA1TAB PO (10:53)
[2017-01-05] MEDS ORDERED: HYDR25TA PO (10:53)
[2017-01-05] MEDS ORDERED: HYDR-3716 PO (10:53)
[2017-01-05] MEDS ORDERED: CEFD300CAP PO (10:53)
[2017-01-05] MEDS ORDERED: AMLO10TA2 PO (10:53)
[2017-01-05] MEDS ORDERED: BICI30EL PO (10:53)
[2017-01-05] MEDS ORDERED: MAPA325T2 PO (10:53)
[2017-01-05] MEDS ORDERED: MAGN64TASA PO (10:53)
[2017-01-05] MEDS ORDERED: NEUTPW PO (10:53)
[2017-01-05] MEDS ORDERED: LIDO5TD TD (10:53)
[2017-01-05] MEDS ORDERED: LIDO4CRE2 TOP (12:51)
[2017-01-05] MEDS ORDERED: POTA50TAB PO (12:51)
[2017-01-05 14:00] VITALS: BP 152/72
[2017-01-05 14:36] VITALS: BP 152/72
--- NOTE | 2017-01-05 16:22 | IPN ---
DATE: 01/04/2017 Ms. Cates' pain is controlled. She has been out of bed and would like to go home. Temperature is 98.6, pulse 84, respiratory rate 20, blood pressure 160/77, 93% on room air. Intake and output notable for a positive fluid balance of +2240 with four voids that were not recorded yesterday. She is awake, appropriately interactive, pleasantly conversant. Breathing is symmetrical, rested. Heart is distant sounding. Abdomen is soft, doughy, nontender. White cell count 8.9, hemoglobin 10.8, potassium 3.6, carbon dioxide 19, calcium 7.1, ionized calcium 3.8, phosphorous 1.9, magnesium 1.5. My assessment is as follows: This is a 66-year-old with hypercalcemia of malignancy who today is hypocalcemic. Plan is as follows: 1. For hypercalcemia of malignancy, patient is now hypocalcemic. She also has multiple other electrolyte abnormalities, including hypomagnesemia and hypophosphatemia. Hypokalemia seems to have resolved. Patient will be maintained in hospital to continue to address these issues. 2. Patient has hypertension which is trending upward at this point. 3. Patient has metabolic encephalopathy at the time of presentation which has resolved. 4. Patient has appropriate deep venous thrombosis (DVT) prophylaxis. 5. Patient has passed physical therapy and will need a rolling walker for home. 6. Patient is to follow with Dr. Moeller as an outpatient for her suspected malignancy.
[2017-01-05] MEDS ORDERED: K-PHOS ORIGINAL (POT.ACID PHOSPHATE) 500MG TAB PO SCH (21:00)
--- NOTE | 2017-01-06 10:35 | IPN ---
DATE OF VISIT: 01/05/2017 SUBJECTIVE: The patient was seen and examined at the bedside today in the morning. She does not have any active complaints. Her electrolytes are improving. She is hemodynamically stable. Blood pressures are acceptable. REVIEW OF SYSTEMS: The patient denies any fever, chills, rigors, headache, nausea or vomiting, chest pain, shortness of breath, pain in abdomen, constipation or diarrhea or psychosis. The rest of the review of systems is negative. OBJECTIVE: VITAL SIGNS: Temperature is 98.1 degrees Fahrenheit, blood pressure 136/87, pulse 87, respiratory rate 18, saturating 94% on room air. Intake and output: Urine output is not reported. The patient had two voids yesterday, three voids are reported so far today since overnight. Bed scale weight is not available. GENERAL: The patient is awake, alert and oriented times three, sitting in the bed in no acute distress. HEAD/NECK: Extraocular muscles intact. Pupils equal, round, reactive to light. Moist mucous membranes. Neck is supple. There is no jugular venous distention (JVD). CARDIOVASCULAR: S1, S2, regular rate, no murmurs, rubs, gallops. RESPIRATORY: Chest is clear to auscultation bilaterally. Bilateral equal air entry. No rales or rhonchi. ABDOMEN: Soft, positive bowel sounds, nontender, no ascites, no organomegaly. EXTREMITIES: No clubbing or cyanosis. Pulses are 2+. CENTRAL NERVOUS SYSTEM (HOME CARE LIAISON): No focal neurological deficits. Power is 5/5 in all extremities. LAB REVIEW: CBC showed a WBC 8.9, hemoglobin 11.5, plates 345. BMP shows sodium 142, potassium 3.6, chloride 109, bicarbonate 22, BUN 6, creatinine 0.80. Calcium 4.1, phosphorus 2.2, magnesium 1.8, albumin 2.9. Microbiology: Urine culture that was sent on January 04, 2017 appears contaminated. CURRENT MEDICATIONS: The patient's medications were all reviewed by me. - Her calcium dose was increased to 500 mg by mouth twice a day. - She was started on Losartan 25 mg by mouth daily. - She is currently on Neutra-Phos two packets by mouth three times a day with meals. There is no other change in the medications today. ASSESSMENT: Mrs. Cates is a 66-year-old female who was initially admitted with hypercalcemia, acute kidney injury. She was found to have multiple lytic skull lesions and abnormal skeletal survey. Multiple myeloma work-up was negative. Nephrology service is following the patient for management for acute kidney injury and electrolyte abnormalities. PLAN: 1. Hypocalcemia. The patient was given intravenous (IV) calcium gluconate yesterday. I have started her on calcium plus vitamin D 500 mg by mouth twice a day. No need for IV calcium today. 2. Hypophosphatemia. The patient is getting Neutra-Phos two packets by mouth twice a day with meals. She can be discharged on the current dose of Neutra- Phos. If her insurance does not cover Neutra-Phos packets then she can be discharged on K-Phos, 1 gram by mouth twice a day. 3. Hypomagnesemia. Magnesium level is improved to 1.8 today. Continue current dose of Mag Delay 64 mg p daily. 4. Multiple lytic bone lesions. 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 The patient was already seen by hematology as an inpatient. They recommend full patient followup, the rest of the work-up will be done as an outpatient. DISCHARGE PLANNING: It is okay to discharge the patient from a nephrology standpoint on the current dose of anti-hypertensive medications and current electrolyte repletion dosages. She can followup with nephrology as an outpatient 1-2 weeks after discharge and if needed we shall adjust her medications. The plan of care was discussed with the hospitalist team, Dr. Mike Betancourt. [facility] SYSTEMShemar
--- NOTE | 2017-01-06 13:27 | DSES ---
DATE OF ADMISSION: 12/27/2016 DATE OF DISCHARGE: 01/05/2017 SPECIALISTS INVOLVED IN CARE: Dr. Negrete, Dr. Shaw, Dr. Moeller. There are no complications of her stay. There were no procedures performed during her stay. DISCHARGE DIAGNOSES: 1. Hypercalcemia of malignancy. 2. Hypertension. 3. Fibromyalgia. 4. Hyperlipidemia. 5. 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 6. Hypophosphatemia. 7. Hypokalemia. 8. Hypercalcemia. 9. Hypocalcemia. 10. Hypomagnesemia. 11. Acute renal failure. 12. Metabolic encephalopathy at the time of presentation. Following is a summary of her hospitalization. This is a 66-year-old who presented with generalized weakness and change in mental status. She had been experiencing auditory and visual hallucinations, angry outbursts, and has been constipated, complaining of chills. Was found to have hypercalcemia and multiple bone lesions. She was admitted to the hospitalist service. Was treated empirically for hypercalcemia. Was given zoledronic acid on December 27. Was found to have a vitamin D level of 9 and an intact parathyroid hormone (PTH) of less than 6. She did have acute renal failure at the time of presentation, which resolved quickly but prolonged electrolyte abnormality, which required multiple days of supplementation. Was also seen in consultation by renal, who assisted with her management and will follow as an outpatient. Was also seen by Dr. Moeller. Serum protein electrophoresis (SPEP) and immunotyping were done, which were not indicative of multiple myeloma, but patient will require further workup, which will be arranged through Dr. Moeller's office as an outpatient. On the day of discharge she is feeling well. She is ambulating with a rolling walker without difficulty. Pain associated with the skeletal lesions is reasonably well controlled, and she is moving her bowels. Temperature is 98.1, pulse 87, respiratory rate 20, blood pressure 152/72, 94% on room air. She is awake, appropriately interactive, pleasantly conversant. Breathing is symmetrical and rested. Heart is in a regular rate and rhythm. Abdomen soft, doughy, nontender. White cell count 8.9, hemoglobin 11.5. Potassium 3.6. Phosphorus 2.2, calcium is 7.7 with ionized calcium of 4.1. DISCHARGE INSTRUCTIONS: Include the following: Followup with Dr. Moeller per his instructions. Followup with Dr. Shaw in 2 weeks, Dr. Arturo Welch within 7 days. Activity as tolerated. Rolling walker. Diet as tolerated. MEDICATIONS AT THE TIME OF DISCHARGE: Will include: - Tylenol every 4 hours as needed - [place] 7.5 mg/325 one tablet every 4 hours as needed, #30 - Norvasc 10 mg by mouth daily - cefdinir 300 mg by mouth twice daily - citric acid/sodium citrate 15 mL by mouth twice daily - hydralazine 25 mg every 8 hours - Lidoderm ointment topically once daily as needed, as the cream was not covered - Cozaar 25 mg by mouth daily - magnesium chloride 64 mg by mouth daily - potassium phosphate monobasic 1000 mg by mouth twice daily, which surprisingly enough required prior authorization - aspirin 81 mg by mouth every 2 days - atenolol 100 mg by mouth twice daily - Strattera 60 mg by mouth daily - Zetia 10 mg by mouth daily at bedtime - fish oil 1000 mg by mouth three times a day - fluoxetine 40 mg by mouth daily - Neurontin 300 mg by mouth daily at bedtime - hydroxyzine 50 mg by mouth three times daily as needed for anxiety - simvastatin 20 mg by mouth daily at bedtime Discontinue amiloride. Discontinue Norvasc 5. Discontinue calcium with vitamin D supplement. Discontinue chlorthalidone. Discontinue losartan 100 mg dose. Discontinue potassium chloride 20 mEq daily. Discontinue tizanidine 4 mg by mouth every 8 hours as needed for spam. Discontinue vitamin D supplement.
[2017-01-06] MEDS ORDERED: SODI325T9 PO (15:07)
== END 2017-01-05 17:30 | disposition home or self-care (01) | DRG 640 ==
LOC: M ED 10:53 → M ED INP 14:41 → M PCU 12-28 02:18 → M MS5PR 12-31 16:39
PROVIDERS: ADMIT Internal Medicine; ATTEND Internal Medicine
DX: E83.52 Hypercalcemia (principal); G93.41 Metabolic encephalopathy; N17.9 Acute kidney failure, unspecified; R44.0 Auditory hallucinations; E78.5 Hyperlipidemia, unspecified; I10 Essential (primary) hypertension; E87.6 Hypokalemia; E83.42 Hypomagnesemia; E83.39 Other disorders of phosphorus metabolism; M89.9 Disorder of bone, unspecified; D75.9 Disease of blood and blood-forming organs, unspecified; K59.00 Constipation, unspecified; M79.7 Fibromyalgia; E79.0 Hyperuricemia without signs of inflammatory arthritis and tophaceous disease; R44.1 Visual hallucinations; Z79.899 Other long term (current) drug therapy; Z79.82 Long term (current) use of aspirin; Z91.81 History of falling; Z90.710 Acquired absence of both cervix and uterus; Z98.51 Tubal ligation status; Z82.49 Family history of ischemic heart disease and other diseases of the circulatory system; Z88.2 Allergy status to sulfonamides; Z88.8 Allergy status to other drugs, medicaments and biological substances

== ENCOUNTER 2017-01-08 14:02 | Inpatient (IN) | payer MEDICARE, MEDICAID ==
[~2017-01-08] VITALS: Ht 165.1 cm; Wt 90.1 kg
[~2017-01-08 14:02] MED LIST changes: -CEFD1CAP8 PO; -HYDR-4266 PO; -LIDO1CRE2 TOP; -LOSA25TA8 PO; -TYLE325T5 PO
[2017-01-08] MEDS ORDERED: IPRATROPIUM 0.5MG/ALBUTEROL 2.5MG INH SOL UD 3ML (DUONEB)(J7620) As Ordered ONE (15:14)
[2017-01-08 15:31] LABS: BASO % 0.3 % (0.0-1.0); EOS # 0.1 K/mm3 (0.0-0.50); EOS % 1.1 % (0.0-3.0); LARGE UNSTAINED CELL # 0.1 K/mm3 (0.0-0.4); LARGE UNSTAINED CELL % 1.1 % (0.0-4.0); LYMPH # 1.3 K/mm3 (1.5-4.5); LYMPH % 15.5 % (24.0-44.0); MEAN CORPUSCULAR HEMOGLOBIN 28.4 pg (27.0-33.0); MONO # 0.2 K/mm3 (0.0-0.8); MONO % 2.6 % (0.0-5.0); NEUTROPHILS # 6.8 K/mm3 (1.8-7.7); NEUTROPHILS % 79.3 % (36.0-66.0); PLATELET COUNT, AUTOMATED 271 k/mm3 (150-450); RED CELL DISTRIBUTION WIDTH 13.9 % (11.5-14.5); WHITE BLOOD COUNT 8.6 K/mm3 (4.0-10.0)
[2017-01-08] MEDS ORDERED: VANCOMYCIN 1000 MG/20 ML VIAL (J3370) As Ordered ONE (15:33)
[2017-01-08] MEDS ORDERED: ZOSYN 3.375 GM VIAL (J2543) As Ordered ONE (15:34)
[2017-01-08] MEDS ORDERED: NORCO, ANEXSIA 5/325MG TABLET (HYDROcodone/ACETAMINOPHEN) As Ordered ONE (15:34)
[2017-01-08 15:50] LABS: ABG BASE EXCESS -1.7 (-2.0-2.0); ABG DEVICE NASAL CANN; ABG HCO3 20.1 MEQ/L (22.0-26.0); ABG PARTIAL PRESSURE O2 87.7 mmHg (75.0-100.0); ABG TOTAL CO2 20.9 MEQ/L (23.0-31.0); ABG pH (ARTERIAL) 7.507 UNITS (7.350-7.450)
[2017-01-08 16:06] LABS: ALBUMIN 2.7 GM/DL (3.2-5.2); ALBUMIN/GLOBULIN RATIO 0.73 (1.00-1.93); ALKALINE PHOSPHATASE 167 U/L (45-117); ALT/SGPT 34 U/L (12-78); ANION GAP 13 MEQ/L (8-16); AST/SGOT 39 U/L (15-37); BILIRUBIN,TOTAL 0.7 MG/DL (0.2-1.0); BLOOD UREA NITROGEN 9 MG/DL (7-18); CALCIUM LEVEL 7.9 MG/DL (8.8-10.2); CARBON DIOXIDE LEVEL 21 MEQ/L (21-32); CHLORIDE LEVEL 97 MEQ/L (98-107); CREATININE FOR GFR 0.68 MG/DL (0.55-1.02); GLOMERULAR FILTRATION RATE > 60.0 (>45); GLUCOSE, FASTING 95 MG/DL (80-110); MAGNESIUM LEVEL 1.7 MG/DL (1.8-2.4); PHOSPHORUS LEVEL 1.9 MG/DL (2.5-4.9); POTASSIUM SERUM 3.1 MEQ/L (3.5-5.1); SODIUM LEVEL 131 MEQ/L (136-145); TOTAL PROTEIN 6.4 GM/DL (6.4-8.2)
[2017-01-08] MEDS ORDERED: ISOVUE-370 76% 100ML VIAL (Q9967) As Ordered ONE (16:25)
--- NOTE | 2017-01-08 16:55 | REP ---
Clinical: Shortness of breath and cough. Technique: Axial contrast enhanced images from the thoracic inlet to the upper abdomen using 100 ml Isovue 370 intravenous contrast material with coronal and sagittal re-formations. Findings: Small left pleural effusion with moderate left lower lobe consolidation along with smaller right lower lobe consolidation and scattered bilateral infiltrates is most compatible with multifocal pneumonia and correlation is recommended. Mild reactive adenopathy is suggested. Minimal atherosclerotic changes to the thoracic aorta and coronary arteries noted without aortic aneurysm/dissection, cardiomegaly or pericardial effusion. Tracheobronchial tree is patent. No pneumothorax. Surrounding musculoskeletal structures demonstrate diffuse sclerotic changes along with innumerable lytic lesions compatible with metastatic disease. Asymmetric left axillary lymph nodes are identified. Impression: 1. Diffuse osseous metastatic disease. 2. Small left pleural effusion with moderate left lower lobe consolidation and scattered bilateral infiltrates suggest multifocal pneumonia. 3. Asymmetric left axillary lymph nodes possibly related to patient's metastatic disease. Signed by Mik Rolon MD 01/08/2017 04:47 P
[2017-01-08] MEDS ORDERED: AMLO10TA2 PO (17:01)
[2017-01-08] MEDS ORDERED: TYLE325T5 PO (17:01)
[2017-01-08] MEDS ORDERED: HYDR-3716 PO (17:01)
[2017-01-08] MEDS ORDERED: CEFD1CAP8 PO (17:01)
[2017-01-08] MEDS ORDERED: LIDO1CRE2 TOP (17:06)
[2017-01-08] MEDS ORDERED: HYDR-4266 PO (17:06)
[2017-01-08] MEDS ORDERED: LOSA25TA8 PO (17:10)
[2017-01-08] MEDS ORDERED: SODI325T9 PO (17:10)
[2017-01-08] MEDS ORDERED: MAGN64TASA PO (17:10)
[2017-01-08] MEDS ORDERED: POTA50TAB PO (17:10)
[2017-01-08] MEDS ORDERED: ATOM60CA PO (17:10)
[2017-01-08] MEDS ORDERED: POTASSIUM CHL PWD 20 MEQ PACKET As Ordered ONE (17:17)
[2017-01-08] MEDS ORDERED: MAGNESIUM OXIDE 400 MG TAB (MAG-OX) As Ordered ONE (17:18)
[2017-01-08] MEDS ORDERED: **hydrALAZINE HCL** 25 MG TAB As Ordered ONE (17:18)
[2017-01-08] MEDS ORDERED: METOCLOPRAMIDE INJ 10MG/2ML VIAL (J2765) IV PRN (17:45)
[2017-01-08] MEDS ORDERED: BISACODYL 10 MG SUPP PR PRN (17:45)
[2017-01-08] MEDS ORDERED: AZITHROMYCIN INJ 500MG VIAL (J0456) As Ordered ONE (18:38)
[2017-01-08] MEDS ORDERED: hydrOXYzine 50 MG TAB PO PRN (19:00)
[2017-01-08] MEDS ORDERED: ANEXSIA, NORCO 7.5MG/325MG TABLET(HYDROCODONE/APAP) PO PRN (19:00)
[2017-01-08] MEDS ORDERED: ONDANSETRON 4MG/2ML VIAL (J2405) IV PRN (19:00)
[2017-01-08] MEDS ORDERED: ALBUTEROL SULFATE 2.5 MG/0.5 ML INH NEB SOLN NEB PRN ×2 (19:00→19:15)
--- NOTE | 2017-01-08 19:51 | PHACANCOPD ---
PHARMACY VANCOMYCIN DOSING Pt Demographics Demographics Patient Age:66 , Weight: , Gender: female Adjusted Body Weight Date: 01/08/17, Adjusted Body Weight: Kg Events Past 24 Hours Events Past 24 Hours: NO: Change in CrCl, Dialysis, Diuretic Therapy, Elevation in WBC, Fever, Other, Pending Diagnostics, Pending Procedures Vancomycin Vancomycin indication: hospital acquired pneumonia Vancomycin Target Ranges: 15-20 mcg/ml Vancomycin Load Y/N: Yes Load Dose Date Time Vancomycin Load Dose: 2000mg Date: 01/08 Time: ~16:00 Vancomycin Dose Date: 01/08/17. Current Vancomycin Dose: [1g IV q12h @00] Intermittent Dosing?: No Labs Labs Item Value Date Time White Blood Count 8.6 K/mm3 01/08/17 1518 C-Reactive Protein, Quantitative 5.97 MG/DL H 01/08/17 1516 Creatinine 0.68 MG/DL 01/08/17 1516 Micro Microbiology 01/08/17 Blood Culture, Received Pending 01/08/17 Blood Culture, Received Pending 01/08/17 Respiratory Virus Panel (PCR) (DEANA) - Final, Complete Influenza A H3 Creatinine Clearance Date:01/08/17. Creatinine Clearance: [80 ml/min]. Assessment and Plan Maintaining Current Dose?: Yes Reason for dose change: No Dose Change Pharmacist Note Pharmacist Note Date: 01/08/17. Pharmacist note: pt was discharged from [facility] on 01/06 and was admitted today for hospital acquired pneumonia. Influenza screen was positive for AH3 and she has been started on tamiflu. She has also been started on Zithromax, Zosyn and Vancomycin. She has not been on vancomycin at our facility in the past and does not have a Hx of MRSA. Pt was seen by oncology on her last admission, further workup is still pending in terms of diagnosis/treatment. She received a 2g vancomycin IV loading dose in the ER and I have started her 1g q12h dosing ~8 hours later. We will continue to monitor cultures and renal function and order trough levels as necessary. Zurdo Gomez Pharm.D. Jan 08, 2017 19:51
--- NOTE | 2017-01-08 19:54 | EDDOCDS ---
Physician Documentation [facility] Name: Katlin Cates Age: 66 yrs Sex: Female : 1950 Arrival Date: 01/08/2017 Time: 14:02 Bed 19 Private MD: Arturo Welch MD Disposition: 01/08/17 17:10 Hospitalization ordered by Bere Mead for Inpatient Admission. Preliminary diagnosis is Lobar pneumonia, unspecified organism. - Bed requested for 5 Garcia. - Status is Inpatient Admission. myron - Condition is Stable. - Problem is new. - Symptoms are unchanged. Historical: - Allergies: Flagyl; SULFA (SULFONAMIDES); - Home Meds: 1. Tylenol 325 mg Oral tab 2 tabs every 4 hours (Last dose: 01/08/2017 10:00) 2. hydrocodone-acetaminophen 7.5-325 mg oral tab every 4 hours (Last dose: 01/07/2017) 3. amlodipine 10 mg Oral tab 1 tab once daily (Last dose: 01/08/2017 10:00) 4. cefdinir 300 mg Oral cap 1 cap every 12 hours for uti (Last dose: 01/08/2017 10:00) 5. citric acid/sodium citrate 334-500mg/5ml twice a day (Last dose: 01/08/2017 10:00) 6. hydralazine 25 mg Oral tab every 8 hours (Last dose: 01/08/2017 09:00) 7. Lidoderm 4% cream Topical once daily prn 8. losartan 25 mg oral tab 1 tab once daily (Last dose: 01/08/2017 10:00) 9. magnesium chloride 64mg daily (Last dose: 01/08/2017 10:00) 10. potassium phospate 500 mg twice a day (Last dose: 01/08/2017 10:00) 11. aspirin 81 mg Oral tab 1 tab once daily (Last dose: 01/08/2017 10:00) 12. atenolol 100 mg Oral tab 1 tab twice a day (Last dose: 01/08/2017 10:00) 13. Strattera 60 mg oral cap 1 cap nightly (Last dose: 01/07/2017) 14. Zetia 10 mg Oral tab 1 tab once daily (Last dose: 01/07/2017) 15. Fish Oil 1,000 mg oral cap three times a day (Last dose: 01/08/2017 10:00) 16. gabapentin 300 mg Oral tab nightly (Last dose: 01/07/2017) 17. fluoxetine 40 mg Oral cap 1 cap once daily (Last dose: 01/08/2017 10:00) 18. hydroxyzine HCl 50 mg Oral tab 1 tab three times a day as needed 19. simvastatin 20 mg Oral tab 1 tab nightly (Last dose: 01/07/2017) - PMHx: ADHD; Anxiety; Depression; Hypercholesterolemia; Hypertension; Fibromyalgia; - PSHx: Hysterectomy; Appendectomy; Tubal ligation; - Social history: Smoking status: Patient states former smoker of tobacco. No barriers to communication noted, The patient speaks fluent Hebrew, Speaks appropriately for age. - Family history: Not pertinent. - : Unable to assess if pt is on anticoagulants. The pt / caregiver states he / she is not on anticoagulants. Home medication list is obtained from the patient. - Exposure Risk Screening:: None identified. Vital Signs: 01/08 14:04 BP 137 / 76; Pulse 81; Resp 18 S; Temp 96.4(T); Pulse Ox 95% on R/A; Weight 86.18 kg / gr2 189.99 lbs (R); Height 5 ft. 5 in. (165.10 cm) (R); Pain 5/10; 16:08 BP 134 / 69 (auto/); Pulse 80; Resp 20 S; Pulse Ox 93% on R/A; ms2 16:47 BP 135 / 64 (auto/); ms2 16:48 Pulse 72 MON; Pulse Ox 92% ; ms2 16:50 Pulse 74 MON; Resp 20 S; Pulse Ox 94% ; ms2 16:52 BP 134 / 64; Pulse 73; Resp 20 S; Pulse Ox 93% on R/A; ms2 19:18 BP 112 / 63; Pulse 78; Resp 20 S; Pulse Ox 94% on R/A; ms2 19:40 Temp 97(O); ms2 14:04 Body Mass Index 31.62 (86.18 kg, 165.10 cm) gr2 MDM: 14:52 Financial registration complete. mm15 14:57 [facility] Payment Agreement was scanned into [employer] and attached to record. mm15 15:05 IV Saline Lock ordered. le 15:05 Albuterol-Ipratropium 3 ml Inhalation once ordered. le 15:05 Call Respiratory ordered. le 15:06 CBC with Diff Ordered. EDMS 15:06 Complete Comphrensive Metabolic Ordered. EDMS 15:06 Magnesium Level Ordered. EDMS 15:06 Phosphorous Level Ordered. EDMS 15:08 Call Respiratory complete. deg 15:15 Call Respiratory ordered. le 15:15 -Blood Culture (Adults Only), peripheral from different site, or from device/port/PICC le etc. if present ordered. 15:15 Piperacillin-Tazobactam 3.375 grams IVPB once over 30 mins; dilute in 50mL of NS or D5W le ordered. 15:15 azithromycin 500 mg IVPB once over 1 hrs; dilute in 250mL of D5W or NS ordered. le 15:15 vancomycin (loading dose for pt. wt. >= 80kg) 2000 mg IVPB once ordered. le 15:16 -Arterial Blood Gas Ordered. EDMS 15:16 -Blood Culture Ordered. EDMS 15:16 Lactic Acid (Alexander tube on ice) Ordered. EDMS 15:20 C REACTIVE PROTEIN QUANTITATIV Ordered. EDMS 15:22 -Blood Culture (Adults Only), peripheral from different site, or from device/port/PICC deg etc. if present complete. 15:23 Call Respiratory complete. deg 15:23 BLOOD CULTURES Ordered. EDMS 15:25 HYDROcodone-acetaminophen 5 mg-325 mg 1 tabs PO once ordered. le 15:31 Misc Patient Scheduling Manager Order ordered. le 15:33 Misc Patient Scheduling Manager Order complete. deg 15:34 RESPIRATORY PANEL Ordered. EDMS 15:45 BED REQUEST+ADM ordered. EDMS 16:18 C REACTIVE PROTEIN QUANTITATIV Reviewed. le 16:18 CBC with Diff Reviewed. le 16:18 Complete Comphrensive Metabolic Reviewed. le 16:18 Magnesium Level Reviewed. le 16:18 Phosphorous Level Reviewed. le 16:18 -Arterial Blood Gas Reviewed. le 16:18 Lactic Acid (Alexander tube on ice) Reviewed. le 16:20 Potassium Chloride Packet 40 mEq PO once ordered. le 16:20 Magnesium Oxide 400 mg PO once ordered. le 16:25 CT Chest With Contrast Ordered. EDMS 16:55 hydrALAZINE 25 mg PO once ordered. le 17:39 Admission / Observation Status ordered. EDMS 17:39 REGULAR DIET ordered. EDMS 19:13 Albuterol 2.5 mg Nebulizer once ordered. ms2 19:23 2 GRAM SODIUM DIET ordered. EDMS 19:32 COMPLETE BLOOD COUNT Ordered. EDMS 19:32 BASIC METABOLIC PROFILE Ordered. EDMS Administered Medications: 15:09 Drug: Albuterol-Ipratropium 3 ml [ipratropium-albuterol 0.5 mg-3 mg(2.5 mg base)/3 mL ac1 nebulization soln (3 mL)] Route: Inhalation; 15:14 Follow up: BS WHMichelle BILAT BEFORE AND AFTER TX ac1 15:53 Drug: Piperacillin-Tazobactam 3.375 grams [piperacillin-tazobactam 3.375 gram ms2 intravenous solution] Route: IVPB; Infused Over: 30 mins; Site: left wrist; 15:54 Drug: HYDROcodone-acetaminophen 1 tabs [hydrocodone 5 mg-acetaminophen 325 mg tablet (1 ms2 tabs)] Route: PO; 16:49 Drug: vancomycin (loading dose for pt. wt. >= 80kg) 2000 mg Route: IVPB; Site: left ms2 forearm; 17:24 Drug: hydrALAZINE 25 mg [hydralazine 25 mg tablet (1 tabs)] Route: PO; ms2 17:25 Drug: Potassium Chloride 40 mEq [potassium chloride 20 mEq oral packet (2 packets)] ms2 Route: PO; 17:25 Drug: Magnesium Oxide 400 mg [magnesium oxide 400 mg tablet (1 tabs)] Route: PO; ms2 18:55 Drug: azithromycin 500 mg [azithromycin 500 mg intravenous solution] Route: IVPB; ms2 Infused Over: 1 hrs; Site: left forearm; 19:23 Drug: Albuterol 2.5 mg [albuterol sulfate 2.5 mg/0.5 mL solution for nebulization (0.5 jh6 mL)] Route: Nebulizer; Signatures: Dispatcher [employer] EDEnid [place], Healthcare Science Specialist Unit deg Tacho Morales RN RN ms2 Teresa Olmos RN RN srm Newman, Jill New, RN RN jan Westcott, Lisa, SILK WINDING MACHINE OPERATOR SILK WINDING MACHINE OPERATOR June Demarco mm15 Raul Sanabria RN RN sa Cowles, Amy RT ac1 Sal Barlow jh6 The chart was reviewed and I authenticate all verbal orders and agree with the evaluation and treatment provided.Corrections: (The following items were deleted from the chart) 15:11 15:06 D-DIMER QUANT+LAB ordered. EDMS EDMS 15:20 15:16 C REACTIVE PROTEIN QUANTITATIV+LAB ordered. EDMS EDMS 16:24 15:06 Chest, 2 view (PA\E\Lat)+XR ordered. EDMS EDMS Attachments: 14:57 [facility] Payment Agreement mm15 MTDD
--- NOTE | 2017-01-08 19:54 | EDDOCDS ---
Nurse's Notes [facility] Name: Katlin Cates Age: 66 yrs Sex: Female : 1950 Arrival Date: 01/08/2017 Time: 14:02 Bed 19 Private MD: Arturo Welch MD Diagnosis: Lobar pneumonia, unspecified organism Presentation: 01/08 14:12 Presenting complaint: Patient states: coughing and wheezing for 2 days. seen at [facility] urgent care and sent here for further eval. last week dx with bone cancer after admission- was seen for hypercalcemia and low potassium. Adult Sepsis Screening: The patient does not have new or worsening altered mentation. Patient's respiratory rate is less than 22. Systolic blood pressure is greater than 100. Patient has a qSOFA score of 0- Negative Sepsis Screen. Suicide/Homicide risk assessment- the patient denies having any suicidal and/or homicidal ideations and does not present with any other emotional, behavioral or mental health complaints. Status: Patient is not a client services manager or dependent. Transition of care: Patient was received from [facility]. 14:12 Acuity: VAZQUEZ Level 3 [facility] 14:12 Method Of Arrival: Wheelchair [facility] Triage Assessment: 14:21 General: Appears in no apparent distress, Behavior is appropriate for age, cooperative. [facility] Pain: Pain currently is 6 out of 10 on a pain scale. Respiratory: Onset: The symptoms/episode began/occurred 2 days. Historical: - Allergies: Flagyl; SULFA (SULFONAMIDES); - Home Meds: 1. Tylenol 325 mg Oral tab 2 tabs every 4 hours (Last dose: 01/08/2017 10:00) 2. hydrocodone-acetaminophen 7.5-325 mg oral tab every 4 hours (Last dose: 01/07/2017) 3. amlodipine 10 mg Oral tab 1 tab once daily (Last dose: 01/08/2017 10:00) 4. cefdinir 300 mg Oral cap 1 cap every 12 hours for uti (Last dose: 01/08/2017 10:00) 5. citric acid/sodium citrate 334-500mg/5ml twice a day (Last dose: 01/08/2017 10:00) 6. hydralazine 25 mg Oral tab every 8 hours (Last dose: 01/08/2017 09:00) 7. Lidoderm 4% cream Topical once daily prn 8. losartan 25 mg oral tab 1 tab once daily (Last dose: 01/08/2017 10:00) 9. magnesium chloride 64mg daily (Last dose: 01/08/2017 10:00) 10. potassium phospate 500 mg twice a day (Last dose: 01/08/2017 10:00) 11. aspirin 81 mg Oral tab 1 tab once daily (Last dose: 01/08/2017 10:00) 12. atenolol 100 mg Oral tab 1 tab twice a day (Last dose: 01/08/2017 10:00) 13. Strattera 60 mg oral cap 1 cap nightly (Last dose: 01/07/2017) 14. Zetia 10 mg Oral tab 1 tab once daily (Last dose: 01/07/2017) 15. Fish Oil 1,000 mg oral cap three times a day (Last dose: 01/08/2017 10:00) 16. gabapentin 300 mg Oral tab nightly (Last dose: 01/07/2017) 17. fluoxetine 40 mg Oral cap 1 cap once daily (Last dose: 01/08/2017 10:00) 18. hydroxyzine HCl 50 mg Oral tab 1 tab three times a day as needed 19. simvastatin 20 mg Oral tab 1 tab nightly (Last dose: 01/07/2017) - PMHx: ADHD; Anxiety; Depression; Hypercholesterolemia; Hypertension; Fibromyalgia; - PSHx: Hysterectomy; Appendectomy; Tubal ligation; - Social history: Smoking status: Patient states former smoker of tobacco. No barriers to communication noted, The patient speaks fluent Omani, Speaks appropriately for age. - Family history: Not pertinent. - : Unable to assess if pt is on anticoagulants. The pt / caregiver states he / she is not on anticoagulants. Home medication list is obtained from the patient. - Exposure Risk Screening:: None identified. Screenin:39 Screening information is obtained from prior medical records. Fall risk: No risks ms2 identified. Assistance ADL's: requires no assistance with activities of daily living. Abuse/DV Screen: The patient / caregiver reports he/she is: not in a situation that causes fear, pain or injury. Nutritional screening: No deficits noted. Advance Directives: Currently, there is no health care proxy. There is no active DNR order. There is no living will. There is no Power of Calciner Feeder. Advance directive information has not previously been placed in an [facility] medical record. Further advance directive information is declined. home support is adequate. Assessment: 15:50 General: Appears ill, Behavior is cooperative. Pain: Location: back Pain currently is 6 ms2 out of 10 on a pain scale. Neurological: Level of Consciousness is awake, alert, obeys commands. Cardiovascular: No deficits noted. Respiratory: Airway is patent Respiratory effort is even, labored, Respiratory pattern is regular, symmetrical, Breath sounds with rhonchi bilaterally. Breath sounds with wheezes expiratory. GI: Abdomen is non- distended obese. Derm: Skin is pink, warm & dry. Musculoskeletal: Range of motion intact in all extremities. 16:53 General: Appears ill, Behavior is cooperative. General: no reaction to ct contrast. ms2 Neurological: No deficits noted. Respiratory: Respiratory effort is even, labored. Derm: Skin is pink, warm & dry. 17:30 General: hospitalist in seeing pt. ms2 17:31 General: Appears in no apparent distress, Behavior is cooperative. Neurological: No ms2 deficits noted. Respiratory: Airway is compromised Respiratory effort is even, labored, pt aware if needs tx to call. GI: No deficits noted. Derm: Skin is pink, warm & dry. Musculoskeletal: No deficits noted. 18:17 Adult Sepsis Screening: The patient does not have new or worsening altered mentation. ms2 Patient's respiratory rate is less than 22. General: Appears ill, Behavior is cooperative. General: up to commode and voided --assisted by family. Neurological: No deficits noted. Respiratory: Airway is patent Respiratory effort is even, labored, Respiratory pattern is regular, symmetrical. Derm: Skin is pink, warm & dry. Musculoskeletal: No deficits noted. 19:08 General: hospitalist paged -dr shaw-for breathing tx for pt. Neurological: No ms2 deficits noted. Respiratory: Airway is patent Respiratory effort is even, labored, Respiratory pattern is regular, symmetrical. Derm: Skin is pink, warm & dry. Musculoskeletal: No deficits noted. 19:19 General: order received from dr Blackburn--pt aware--pt coughing more and increased SOB. ms2 19:22 General: RT here to do tx.. ms2 19:40 Adult Sepsis Screening: Patient has new or worsening altered mentation (1 point). ms2 Patient's respiratory rate is less than 22. Systolic blood pressure is greater than 100. Patient has a qSOFA score of 0- Negative Sepsis Screen. General: Appears ill, Behavior is cooperative, pleasant, daughters with pt throughout staya in ed. Neurological: Level of Consciousness is awake, alert, obeys commands. Respiratory: Airway is patent Respiratory effort is even, labored, Respiratory pattern is regular, symmetrical. Derm: Skin is pink, warm & dry. Musculoskeletal: Range of motion intact in all extremities. Vital Signs: 14:04 BP 137 / 76; Pulse 81; Resp 18 S; Temp 96.4(T); Pulse Ox 95% on R/A; Weight 86.18 kg gr2 (R); Height 5 ft. 5 in. (165.10 cm) (R); Pain 5/10; 16:08 BP 134 / 69 (auto/); Pulse 80; Resp 20 S; Pulse Ox 93% on R/A; ms2 16:47 BP 135 / 64 (auto/); ms2 16:48 Pulse 72 MON; Pulse Ox 92% ; ms2 16:50 Pulse 74 MON; Resp 20 S; Pulse Ox 94% ; ms2 16:52 BP 134 / 64; Pulse 73; Resp 20 S; Pulse Ox 93% on R/A; ms2 19:18 BP 112 / 63; Pulse 78; Resp 20 S; Pulse Ox 94% on R/A; ms2 19:40 Temp 97(O); ms2 14:04 Body Mass Index 31.62 (86.18 kg, 165.10 cm) gr2 Vitals: 14:04 Log In Time: January 08, 2017 at 14:04. RN notified that patient meets Red Flag gr2 criteria. ED Course: 14:03 Patient visited by Heaven Arreguin. gr2 14:03 Patient moved to Waiting gr2 14:04 Arturo Welch is Private Physician. gr2 14:07 Patient visited by Heaven Arreguin. gr2 14:07 Patient moved to Pre RCE gr2 14:13 Triage Initiated srm 14:21 Patient moved to 19 kcs 14:26 [facility] le 14:36 Patient visited by Ramona Razo FNP. le 14:37 Patient visited by Ramona Razo FNP. le 14:57 [facility] Payment Agreement was scanned into [employer] and attached to record. mm15 15:15 Inserted saline lock: 20 gauge in left forearm The patient tolerated the procedure ms2 well. No procedures done that require assistance. 15:20 Patient visited by Tacho Morales RN. ms2 15:21 C REACTIVE PROTEIN QUANTITATIV Sent. ms2 15:21 Lactic Acid (Alexander tube on ice) Sent. ms2 15:21 Phosphorous Level Sent. ms2 15:21 Magnesium Level Sent. ms2 15:21 Complete Comphrensive Metabolic Sent. ms2 15:21 CBC with Diff Sent. ms2 15:30 Patient visited by Tacho Morales RN. ms2 15:30 BLOOD CULTURES Sent. ms2 15:47 -Arterial Blood Gas Sent. km6 15:58 RESPIRATORY PANEL Sent. ms2 16:13 Patient visited by Tacho Morales RN. ms2 16:16 The patient / caregiver is instructed regarding the plan of care and ED course. ms2 16:53 The patient / caregiver is instructed regarding the plan of care and ED course. ms2 16:54 IV is patent, is intact, is free of redness or swelling. iv vancomycin on for over 2h ms2 --no reaction. 17:09 Bere Maed is Hospitalizing Provider. le 17:24 Patient visited by Tacho Morales,BANG. ms2 17:34 The patient / caregiver is instructed regarding the plan of care and ED course. ms2 17:34 IV is intact, is free of redness or swelling. ms2 17:45 CT Chest With Contrast Returned. EDMS 18:18 The patient / caregiver is instructed regarding the plan of care and ED course. ms2 18:18 IV is patent, is intact, is free of redness or swelling. solution is infusing as ms2 ordered. vancomycin infusing ---no reaction. 18:28 rn Peg on 5 [facility] to return call. ms2 18:36 Peg RN from [facility] called ---room not yet cleaned -housekeeping have been called. ms2 19:09 The patient / caregiver is instructed regarding the plan of care and ED course. ms2 19:09 IV is patent, is intact, is free of redness or swelling. solution is infusing as ms2 ordered. iv zithromycin infusing --no reaction. 19:39 Notified nurse practitioner of Lonnie Real notified of Influenza A H3 positive. nov 19:41 The patient / caregiver is instructed regarding the plan of care and ED course. floor ms2 notified pt has flu---pt to floor with mask on. 19:42 IV is patent, is intact, is free of redness or swelling. iv zithromax infusing well on ms2 pump---no reaction. Administered Medications: 15:09 Drug: Albuterol-Ipratropium 3 ml [ipratropium-albuterol 0.5 mg-3 mg(2.5 mg base)/3 mL ac1 nebulization soln (3 mL)] Route: Inhalation; 15:14 Follow up: KATHY MURHPY BEFORE AND AFTER TX ac1 15:53 Drug: Piperacillin-Tazobactam 3.375 grams [piperacillin-tazobactam 3.375 gram ms2 intravenous solution] Route: IVPB; Infused Over: 30 mins; Site: left wrist; 15:54 Drug: HYDROcodone-acetaminophen 1 tabs [hydrocodone 5 mg-acetaminophen 325 mg tablet (1 ms2 tabs)] Route: PO; 16:49 Drug: vancomycin (loading dose for pt. wt. >= 80kg) 2000 mg Route: IVPB; Site: left ms2 forearm; 17:24 Drug: hydrALAZINE 25 mg [hydralazine 25 mg tablet (1 tabs)] Route: PO; ms2 17:25 Drug: Potassium Chloride 40 mEq [potassium chloride 20 mEq oral packet (2 packets)] ms2 Route: PO; 17:25 Drug: Magnesium Oxide 400 mg [magnesium oxide 400 mg tablet (1 tabs)] Route: PO; ms2 18:55 Drug: azithromycin 500 mg [azithromycin 500 mg intravenous solution] Route: IVPB; ms2 Infused Over: 1 hrs; Site: left forearm; 19:23 Drug: Albuterol 2.5 mg [albuterol sulfate 2.5 mg/0.5 mL solution for nebulization (0.5 jh6 mL)] Route: Nebulizer; Intake: 16:32 IV: 50.00ml (NS); Total: 50.00ml. ms2 18:25 PO: 480.00ml (Water); IV: 250.00ml (NS); Total: 780.00ml. ms2 19:20 PO: 60.00ml (Milk); Total: 840.00ml. ms2 Output: 16:13 Urine: 700.00ml (Voided); Total: 700.00ml. ms2 18:17 Urine: 825.00ml (Voided); Total: 1525.00ml. ms2 RT: 15:09 Initial Med Neb Given as ordered. ac1 15:47 ABG's drawn from right radial artery allens test done and positive pressure held for 5 km6 minutes specimen sent pt. tolerated well. 16:01 Respiratory: Breath sounds with wheezes bilaterally. at expiration. ac1 19:24 Subsequent Med Neb Given as ordered Patient was reinforced on procedure Patient jh6 tolerated procedure well without adverse effect. Respiratory: Airway is patent Respiratory effort is even, unlabored, Respiratory pattern is regular symmetrical, Breath sounds are coarse in right upper lobe, left upper lobe, right middle lobe, left lower lobe and right lower lobe Breath sounds with wheezes in right upper lobe, left upper lobe, right middle lobe, left lower lobe and right lower lobe at expiration. 19:34 Respiratory: Airway is patent Respiratory effort is even, unlabored, Respiratory jh6 pattern is regular symmetrical, Breath sounds are coarse in right upper lobe, left upper lobe, right middle lobe, left lower lobe and right lower lobe Breath sounds with wheezes in right upper lobe, left upper lobe, right middle lobe, left lower lobe and right lower lobe at expiration. Order Results: Lab Order: CBC with Diff; SPEC'M 01/08/17 15:18 Test: WHITE BLOOD COUNT; Value: 8.6; Range: 4.0-10.0; Units: K/mm3; Status: F Test: RED BLOOD COUNT; Value: 3.76; Range: 4.00-5.40; Abnormal: Below low normal; Units: M/mm3; Status: F Test: HEMOGLOBIN; Value: 10.7; Range: 12.0-16.0; Abnormal: Below low normal; Units: g/dl; Status: F Test: HEMATOCRIT; Value: 30.5; Range: 36.0-47.0; Abnormal: Below low normal; Units: %; Status: F Test: MEAN CORPUSCULAR VOLUME; Value: 81.0; Range: 80.0-96.0; Units: fl; Status: F Test: MEAN CORPUSCULAR HEMOGLOBIN; Value: 28.4; Range: 27.0-33.0; Units: pg; Status: F Test: MEAN CORPUSCULAR HGB CONC; Value: 35.0; Range: 32.0-36.5; Units: g/dl; Status: F Test: RED CELL DISTRIBUTION WIDTH; Value: 13.9; Range: 11.5-14.5; Units: %; Status: F Test: PLATELET COUNT, AUTOMATED; Value: 271; Range: 150-450; Units: k/mm3; Status: F Test: NEUTROPHILS %; Value: 79.3; Range: 36.0-66.0; Abnormal: Above high normal; Units: %; Status: F Test: LYMPH %; Value: 15.5; Range: 24.0-44.0; Abnormal: Below low normal; Units: %; Status: F Test: MONO %; Value: 2.6; Range: 0.0-5.0; Units: %; Status: F Test: EOS %; Value: 1.1; Range: 0.0-3.0; Units: %; Status: F Test: BASO %; Value: 0.3; Range: 0.0-1.0; Units: %; Status: F Test: LARGE UNSTAINED CELL %; Value: 1.1; Range: 0.0-4.0; Units: %; Status: F Test: NEUTROPHILS #; Value: 6.8; Range: 1.8-7.7; Units: K/mm3; Status: F Test: LYMPH #; Value: 1.3; Range: 1.5-4.5; Abnormal: Below low normal; Units: K/mm3; Status: F Test: MONO #; Value: 0.2; Range: 0.0-0.8; Units: K/mm3; Status: F Test: EOS #; Value: 0.1; Range: 0.0-0.50; Units: K/mm3; Status: F Test: BASO #; Value: 0.0; Range: 0.0-0.2; Units: K/mm3; Status: F Test: LARGE UNSTAINED CELL #; Value: 0.1; Range: 0.0-0.4; Units: K/mm3; Status: F Lab Order: Complete Comphrensive Metabolic; SPEC'M 01/08/17 15:16 Test: GLUCOSE, FASTING; Value: 95; Range: 80-110; Units: MG/DL; Status: F Test: BLOOD UREA NITROGEN; Value: 9; Range: 7-18; Units: MG/DL; Status: F Test: CREATININE FOR GFR; Value: 0.68; Range: 0.55-1.02; Units: MG/DL; Status: F Test: GLOMERULAR FILTRATION RATE; Value: > 60.0; Range: >45; Status: F Test: SODIUM LEVEL; Value: 131; Range: 136-145; Abnormal: Below low normal; Units: MEQ/L; Status: F Test: POTASSIUM SERUM; Value: 3.1; Range: 3.5-5.1; Abnormal: Below low normal; Units: MEQ/L; Status: F Test: CHLORIDE LEVEL; Value: 97; Range: 98-107; Abnormal: Below low normal; Units: MEQ/L; Status: F Test: CARBON DIOXIDE LEVEL; Value: 21; Range: 21-32; Units: MEQ/L; Status: F Test: ANION GAP; Value: 13; Range: 8-16; Units: MEQ/L; Status: F Test: CALCIUM LEVEL; Value: 7.9; Range: 8.8-10.2; Abnormal: Below low normal; Units: MG/DL; Status: F Test: AST/SGOT; Value: 39; Range: 15-37; Abnormal: Above high normal; Units: U/L; Status: F Test: ALT/SGPT; Value: 34; Range: 12-78; Units: U/L; Status: F Test: ALKALINE PHOSPHATASE; Value: 167; Range: 45-117; Abnormal: Above high normal; Units: U/L; Status: F Test: BILIRUBIN,TOTAL; Value: 0.7; Range: 0.2-1.0; Units: MG/DL; Status: F Test: TOTAL PROTEIN; Value: 6.4; Range: 6.4-8.2; Units: GM/DL; Status: F Test: ALBUMIN; Value: 2.7; Range: 3.2-5.2; Abnormal: Below low normal; Units: GM/DL; Status: F Test: ALBUMIN/GLOBULIN RATIO; Value: 0.73; Range: 1.00-1.93; Abnormal: Below low normal; Status: F Test Note: ; Units are mL/min/1.73 m2 Chronic Kidney Disease Staging per NKF: Stage I & II GFR >=60 Normal to Mildly Decreased Stage III GFR 30-59 Moderately Decreased Stage IV GFR 15-29 Severely Decreased Stage V GFR <15 Very Little GFR Left ESRD GFR <15 on [employer]AT [employer]ACHINE Lab Order: Magnesium Level; [facility] 01/08/17 15:16 Test: MAGNESIUM LEVEL; Value: 1.7; Range: 1.8-2.4; Abnormal: Below low normal; Units: MG/DL; Status: F Lab Order: Phosphorous Level; [facility] 01/08/17 15:16 Test: PHOSPHORUS LEVEL; Value: 1.9; Range: 2.5-4.9; Abnormal: Below low normal; Units: MG/DL; Status: F Lab Order: -Arterial Blood Gas; [facility] 01/08/17 15:26 Test: ABG pH (ARTERIAL); Value: 7.507; Range: 7.350-7.450; Abnormal: Above high normal; Units: UNITS; Status: F Test: ABG PARTIAL PRESSURE CO2; Value: 26.0; Range: 35.0-45.0; Abnormal: Below low normal; Units: mmHg; Status: F Test: ABG PARTIAL PRESSURE O2; Value: 87.7; Range: 75.0-100.0; Units: mmHg; Status: F Test: ABG TOTAL CO2; Value: 20.9; Range: 23.0-31.0; Abnormal: Below low normal; Units: MEQ/L; Status: F Test: ABG HCO3; Value: 20.1; Range: 22.0-26.0; Abnormal: Below low normal; Units: MEQ/L; Status: F Test: ABG BASE EXCESS; Value: -1.7; Range: -2.0-2.0; Status: F Test: ABG STANDARD HCO3; Value: 23.0; Range: 22.0-26.0; Units: MEQ/L; Status: F Test: ABG O2 SATURATION; Value: 97.6; Range: 95.0-99.0; Units: %; Status: F Test: ABG DEVICE; Value: NASAL DHARMESH; Status: F Lab Order: Lactic Acid (Alexander tube on ice); [facility] 01/08/17 15:16 Test: LACTIC ACID SEPSIS PROTOCOL; Value: 1.1; Range: 0.4-2.0; Units: MMOL/L; Status: F Lab Order: C REACTIVE PROTEIN QUANTITATIV; SPEC'M 01/08/17 15:16 Test: C REACTIVE PROTEIN QUANTITATIV; Value: 5.97; Range: 0.00-0.30; Abnormal: Above high normal; Units: MG/DL; Status: F Lab Order: RESPIRATORY PANEL; SPEC'M 01/08/17 17:26 Test: RESPIRATORY PANEL; Value: RP PANEL RESULT POSITIVE by PCR; Abnormal: Abnormal; Status: F Test: RESPIRATORY PANEL; Value: Comments:; Status: F Test: RESPIRATORY PANEL; Value: ORGANISM 1: INFLUENZA A H3; Status: F Test: RESPIRATORY PANEL; Value: INFLUENZA A H3; Status: F Test: RESPIRATORY PANEL; Value: Influenza H3 1 Influenza causes upper respiratory tract infections; Status: F Test: RESPIRATORY PANEL; Value: Influenza H3 10 Influenza A1H3.; Status: F Test: RESPIRATORY PANEL; Value: Influenza H3 2 with rapid onset of fever. During annual Influenza; Status: F Test: RESPIRATORY PANEL; Value: Influenza H3 3 epidemics, 5-20% of the population is affected.; Status: F Test: RESPIRATORY PANEL; Value: Influenza H3 4 Complications with viral or bacterial pneumonia; Status: F Test: RESPIRATORY PANEL; Value: Influenza H3 5 increase mortality from Influenza infections. There; Status: F Test: RESPIRATORY PANEL; Value: Influenza H3 6 are currently at least four antiviral medications; Status: F Test: RESPIRATORY PANEL; Value: Influenza H3 7 available for Influenza treatment (amantadine,; Status: F Test: RESPIRATORY PANEL; Value: Influenza H3 8 rimantadine, zanamivir and oseltamivir). More severe; Status: F Test: RESPIRATORY PANEL; Value: Influenza H3 9 disease and increased mortality are associated with; Status: F Test Note: ; This respiratory PCR panel detects Influenza A H1, H3 and 2009 H1 viruses, Influenza B virus, Respiratory syncytial virus, Human metapneumovirus, Parainfluenza virus 1, 2, 3 and 4, Adenovirus, Rhinovirus/Enterovirus, Coronavirus HKU1, NL63, OC43 and 229E, Bordetella pertussis, Mycoplasma pneumoniae and Chlamydia pneumoniae. Radiology Order: CT Chest With Contrast Test: CT Chest With Contrast REASON FOR EXAMINATION: Shortness of Breath;Cough; Clinical: Shortness of breath and cough.; ; Technique: Axial contrast enhanced images from the thoracic inlet to the upper; abdomen using 100 ml Isovue 370 intravenous contrast material with coronal and; sagittal re-formations.; ; Findings:; Small left pleural effusion with moderate left lower lobe consolidation along; with smaller right lower lobe consolidation and scattered bilateral infiltrates; is most compatible with multifocal pneumonia and correlation is recommended.; Mild reactive adenopathy is suggested. Minimal atherosclerotic changes to the; thoracic aorta and coronary arteries noted without aortic aneurysm/dissection,; cardiomegaly or pericardial effusion. Tracheobronchial tree is patent. No; pneumothorax. Surrounding musculoskeletal structures demonstrate diffuse; sclerotic changes along with innumerable lytic lesions compatible with metastatic; disease. Asymmetric left axillary lymph nodes are identified.; ; Impression:; 1. Diffuse osseous metastatic disease.; 2. Small left pleural effusion with moderate left lower lobe consolidation and; scattered bilateral infiltrates suggest multifocal pneumonia.; 3. Asymmetric left axillary lymph nodes possibly related to patient's metastatic; disease.; ; ; Signed by; Mik Rolon MD 01/08/2017 04:47 P; Outcome: 17:10 Decision to Hospitalize by Provider. lalitha 18:18 CT Study [place] [facility] [place]:22 Discharge Assessment: patient administered narcotics - yes. Patient was [place] [facility] or transferred to another facility. 19:42 The following High Risk Discharge criteria are identified: None. Admitted [place] [facility] accompanied by tech, family with patient, via stretcher, with chart. Condition: stable. Property :Personal belongings accompany Pt. 19:53 Patient left the ED. myron Signatures: Dispatcher [employer] EDKY Maryjane Tristan RN RN [facility] Tacho Morales RN RN [facility] Teresa Olmos RN RN srm Newman, Jill New, RN RN jan Cowles, Amy,RT RT ac1 Fernanda Griffiths km6 Ramona Razo, ANTIONETTE PRESS PIPE INSPECTOR Sal Silva jh6 Heaven Arreguin gr2 June Chung mm15 Corrections: (The following items were deleted from the chart) 16:16 16:08 BP 134 / 69 Auto; [place] [id number] MTDD
[2017-01-08 20:00] VITALS: BP 121/66
[2017-01-08] MEDS: BUDESONIDE 0.5 MG/2 ML INHALATION SUSPENSION INH SCH (20:00)
[2017-01-08] MEDS: ALBUTEROL SULFATE 2.5 MG/0.5 ML INH NEB SOLN NEB SCH (20:00)
[2017-01-08] MEDS ORDERED: ALBUTEROL SULFATE 2.5 MG/0.5 ML INH NEB SOLN NEB SCH (20:00)
--- NOTE | 2017-01-08 20:01 | HPEPDOC ---
Medical History and Physical Date of Admission Jan 08, 2017 at 17:35 History and Physical PRIMARY CARE PROVIDER: Dr. Love Welch CHIEF COMPLAINT: Pneumonia HISTORY OF PRESENT ILLNESS: Patient is a 66-year-old female who was recently diagnosed with metastatic cancer of unknown primary who presents today with concern for pneumonia. Patient was recently hospitalized, discharged on 01/05/17. She states that approximately 3 days ago she developed symptoms including coughing and wheezing. She presented to urgent care today, they took a chest x-ray, told her she had pneumonia and recommended that she come in to emergency department for possible admission and IV antibiotics. Patient is complaining of cough which she says is productive for phlegm, denies hemoptysis. She is having congestion, rhinorrhea, sinus pressure, chest pain and shortness of breath with her cough. She denies any fevers, chills, sweats, pain or pressure in her ears, sore throat or difficulty swallowing. Of note patient says that she is being treated for a urinary tract infection, she has been on Cefdinir. ALLERGIES: Metronidazole, sulfa PAST MEDICAL HISTORY: ADHD, anxiety, depression, dyslipidemia, hypertension, fibromyalgia, cancer of unknown primary PAST SURGICAL HISTORY: Hysterectomy, appendectomy, tubal ligation SOCIAL HISTORY: Patient is a former smoker, she quit in 1978, she smoked for approximately 15 years. She drinks alcohol 1-2 times per month. She denies any recreational drug use. She lives with her daughter, son-in-law, granddaughter CODE STATUS: Full code REVIEW OF SYSTEMS: Constitutional: denies fevers, chills, night sweats, recent weight gain/loss HEENT: Head: denies headaches, dizziness, light-headedness. Eyes: denies blurry vision, double vision. Ears: denies hearing loss, tinnitus, ear pain. Nose: Positive for rhinorrhea, sinus pain, nasal congestion, postnasal drip. Throat: Positive for cough, denies sore throat or difficulty swallowing Chest: Positive for chest pain with cough Respiratory: Positive for shortness of breath with cough Gastrointestinal: denies nausea, vomiting, diarrhea, constipation, abdominal pain, melena, hematochezia : Positive for recent urinary tract infection Musculoskeletal: Positive for low back pain (which is believed to be secondary to metastatic cancer) Neurological: denies numbness, tingling, paresthesias Lymphatics: denies palpable lymph nodes or swollen glands Integumentary: denies any cuts, rashes, bruises Endocrine: Positive for polyuria, polydipsia PHYSICAL EXAMINATION: Vitals: Temperature 96.4, pulse 73, respiratory rate 20, blood pressure 134/64, pulse ox 93% on room air General: Patient awake, alert and oriented, verbal and able to answer questions appropriately. She does not appear to be in any acute distress HEENT: Head: normocephalic, atraumatic. Eyes: pupils equally reactive to light , conjunctiva are pink, sclera are nonicteric. Throat: buccal mucosa is pink and moist with no lesions in the oropharynx Respiratory: Bilateral wheezes and rhonchi to auscultation Cardiovascular: regular rate and rhythm, with no murmurs, rubs or gallops. Abdomen: Active bowel sounds, soft, left upper quadrant tenderness with rebound to palpation Extremities: 5/5 strength in upper and lower extremities bilaterally, no swelling in either lower extremity bilaterally Neurological: sensation intact and symmetrical in upper and lower extremities bilaterally Lymphatics: no palpable lymph nodes, swollen glands Integumentary: skin free from rashes, lesions, abrasions Vascular: pulses palpable and symmetrical in upper and lower extremities bilaterally LABORATORY DATA: CBC: White blood cells 8.6, hemoglobin and hematocrit 10.7/30.5, platelets 271 Chemistry: Sodium 131, potassium 3.1, chloride 97, carbon dioxide 21, BUN 9, creatinine 0.68, glucose 95, calcium 7.9, phosphorus 1.9, magnesium 1.7 Liver profile: AST 39, ALT 34, alkaline phosphatase 167, total protein 6.4, albumin 2.7, total bilirubin 0.7 Lactic acid 1.1 C-reactive protein 5.97 ABG: PH 7.507, PCO2 26.0, PO2 87.7, HCO3 20.1, oxygen saturation 97.6% MICROBOIOLOGY: Blood cultures 2 pending Respiratory panel pending RADIOLOGY: Chest CT: Diffuse osseous metastatic disease. Small left pleural effusion with moderate left lower lobe consolidation and bilateral scattered infiltrates suggest multifocal pneumonia. Asymmetric left axillary lymph nodes possibly related to patient's metastatic disease ASSESSMENT: Patient is a 66-year-old female with cancer of unknown primary, recent hospitalization who has developed pneumonia. Patient will require hospitalization for hospital-acquired pneumonia, IV antibiotics. PLAN: #1: Hospital-acquired pneumonia: Admit patient to [facility] under care of Dr. Harper. Orders placed for vancomycin 1 g IV every 12 hours, Zosyn 4.5 g IV every 6 hours, Tylenol 650 mg by mouth every 4 hours P, albuterol sulfate 2.5 mg inhalation scheduled every 6 hours and every 2 hours when necessary, hydrocodone with acetaminophen 7.5/325 one tablet by mouth every 4 hours when necessary, budesonide 0.5 mg inhalation twice a day. We'll check a daily CBC, BMP. #2: Cancer of unknown primary: Patient with bone metastasis, hypercalcemia. Primary was initially thought to be a plasma cell dyscrasia but further workup for plasma cell dyscrasia was negative. #3: Respiratory alkalosis: Suspect secondary to pneumonia, patient in no acute distress. Continue to monitor. #4: Hypertension: Order placed for home dose of amlodipine 10 mg by mouth daily , atenolol 100 mg by mouth twice a day, hydralazine 25 mg by mouth 3 times a day , losartan 25 mg by mouth daily #5: Dyslipidemia: Order placed for home dose of Zetia 10 mg by mouth daily at bedtime, fish oil 1 tablet by mouth 3 times a day, simvastatin 20 mg by mouth daily at bedtime #6: Depression and anxiety: Order placed for home dose of fluoxetine 40 mg by mouth daily, hydroxyzine 50 mg by mouth 3 times a day #7: Fibromyalgia: Order placed for home dose of gabapentin 300 mg by mouth daily at bedtime #8: Hypokalemia: Patient given 40 meqs of oral potassium in emergency department , order placed for home dose of potassium phosphate of thousand milligrams by mouth twice a day #9: Hypophosphatemia: Order placed for home dose of potassium phosphate thousand mill grams by mouth twice a day #10: Hypomagnesemia: Patient given 400 mg magnesium oxide emergency department, order placed for home dose of Slow-Mag 64 mg by mouth daily #11: DVT prophylaxis: Order placed for home dose of Lovenox 40 mg subcutaneously daily My preceptor for this patient encounter was physically present in the building during the encounter and was fully available. As needed, all aspects of the patient interview, examination, medical decision making process, and medical care plan development were reviewed and approved by the preceptor. Preceptor is aware and concurs with the plan as stated in the body of this note and will attest to such by his/her cosignature. Vital Signs Temperature 96.4, pulse 73, respiratory rate 20, blood pressure 134/64, pulse ox 93% on room air Home Medications Scheduled Amlodipine Besylate (Amlodipine Besylate) 10 Mg Tab 10 MG PO DAILY Aspirin (Aspirin 81) 81 Mg Tab 81 MG PO Q2D Atenolol (Atenolol) 100 Mg Tab 100 MG PO BID Atomoxetine Hydrochloride (Strattera) 60 Mg Cap 60 MG PO DAILY Cefdinir (Cefdinir) 300 Mg Cap 300 MG PO BID FILLED 01/05/17 FOR 4 DAYS Ezetimibe (Zetia) 10 Mg Tab 10 MG PO QHS Fish Oil (Fish Oil) 1,000 Mg Cap 1,000 MG PO TID Fluoxetine Hcl (Fluoxetine HCl) 40 Mg Cap 40 MG PO DAILY Gabapentin (Gabapentin) 300 Mg Cap 300 MG PO QHS Hydralazine HCl (Hydralazine HCl) 25 Mg Tab 25 MG PO TID Losartan Potassium (Losartan Potassium) 25 Mg Tab 25 MG PO DAILY Magnesium Chloride (Mag64) 64 Mg Tabcr 64 MG PO DAILY Potassium Phosphate Monobasic (K-Phos) 500 Mg Tab 1,000 MG PO BID Simvastatin (Simvastatin) 20 Mg Tab 20 MG PO QHS Sodium Bicarbonate (Sodium Bicarbonate) 325 Mg Tab 162.5 MG PO BID Scheduled PRN (Lidocaine) 4 % Cre 1 DOSE TOP DAILY PRN PRN PAIN APPLY TO BACK AND NECK Acetaminophen (Tylenol) 325 Mg Tab 650 MG PO Q4H PRN PRN PAIN Acetaminophen/Hydrocodone (Hydrocodone/Acetaminophen 7.5-325 mg) 1 Tab Tab 1 TAB PO Q4H PRN PRN PAIN Hydroxyzine HCl (Hydroxyzine HCl) 50 Mg Tab 50 MG PO TID PRN PRN ANXIETY Allergies Coded Allergies: Metronidazole (Verified Allergy, Unknown, 02/16/13) Sulfa Drugs (Unverified Allergy, Unknown, 02/16/13) JAMARCUS FERNANDO DO Jan 08, 2017 20:01
[2017-01-08] MEDS ORDERED: OSELTAMIVIR PHOSPHATE 75 MG CAP (TAMIFLU) PO ONE (21:45)
[2017-01-08] MEDS: K-PHOS ORIGINAL (POT.ACID PHOSPHATE) 500MG TAB PO SCH (22:23)
[2017-01-08] MEDS: SODIUM BICARBONATE 325 MG TAB PO SCH (22:24)
[2017-01-08] MEDS: SENOKOT S TAB PO SCH (22:25)
[2017-01-08] MEDS: ATENOLOL 50 MG TAB PO SCH (22:25)
[2017-01-08] MEDS: **hydrALAZINE HCL** 25 MG TAB PO SCH (22:26)
[2017-01-08] MEDS: GABAPENTIN 300 MG CAP PO SCH (22:26)
[2017-01-08] MEDS: SIMVASTATIN 20 MG TAB PO SCH (22:27)
[2017-01-08] MEDS: EZETIMIBE 10 MG TAB (ZETIA) PO SCH (22:27)
[2017-01-08] MEDS: PIPERACILLIN/TAZOBACTAM SOD 4.5 GM in D5W MINI-BAG PLUS 50 ML IV SCH (22:29)
[2017-01-08] MEDS: OMEGA-3 1050MG CAPSULE PO SCH (23:11)
[2017-01-08] MEDS: VANCOMYCIN HCL 1,000 MG, VIAL MATE ADAPTER 1 EACH in D5W 250 ML IV SCH (23:28)
[2017-01-09] MEDS: ALBUTEROL SULFATE 2.5 MG/0.5 ML INH NEB SOLN NEB SCH ×2 (04:12→07:09)
[2017-01-09] MEDS: PIPERACILLIN/TAZOBACTAM SOD 4.5 GM in D5W MINI-BAG PLUS 50 ML IV SCH ×4 (05:00→22:32)
[2017-01-09 06:00] VITALS: BP 127/77
[2017-01-09 07:00] LABS: MEAN CORPUSCULAR HEMOGLOBIN 29.1 pg (27.0-33.0); MEAN CORPUSCULAR HGB CONC 35.1 g/dl (32.0-36.5); MEAN CORPUSCULAR VOLUME 82.8 fl (80.0-96.0); RED CELL DISTRIBUTION WIDTH 14.3 % (11.5-14.5); WHITE BLOOD COUNT 6.8 K/mm3 (4.0-10.0)
[2017-01-09] MEDS: BUDESONIDE 0.5 MG/2 ML INHALATION SUSPENSION INH SCH ×2 (07:09→19:40)
[2017-01-09 07:16] LABS: ANION GAP 13 MEQ/L (8-16); BLOOD UREA NITROGEN 6 MG/DL (7-18); CALCIUM LEVEL 7.6 MG/DL (8.8-10.2); CARBON DIOXIDE LEVEL 20 MEQ/L (21-32); CHLORIDE LEVEL 101 MEQ/L (98-107); GLOMERULAR FILTRATION RATE > 60.0 (>45); GLUCOSE, FASTING 100 MG/DL (80-110); POTASSIUM SERUM 3.1 MEQ/L (3.5-5.1); SODIUM LEVEL 134 MEQ/L (136-145)
[2017-01-09] MEDS ORDERED: POTASSIUM CHLORIDE 10 MEQ SR TABLET PO ONE (08:00)
[2017-01-09] MEDS: MAGNESIUM CHLORIDE 64 MG TABCR (SLO MAG) PO SCH (08:32)
[2017-01-09] MEDS: ENOXAPARIN 40 MG/0.4 ML SYRINGE (J1650) SC SCH (08:32)
[2017-01-09] MEDS: K-PHOS ORIGINAL (POT.ACID PHOSPHATE) 500MG TAB PO SCH ×2 (08:33→22:33)
[2017-01-09] MEDS: OMEGA-3 1050MG CAPSULE PO SCH ×3 (08:35→22:34)
[2017-01-09] MEDS: SENOKOT S TAB PO SCH ×2 (08:36→22:36)
[2017-01-09] MEDS: predniSONE 10 MG TAB PO SCH (08:36)
[2017-01-09] MEDS: guaiFENesin ER 600 MG TAB PO SCH ×2 (08:36→22:34)
[2017-01-09] MEDS: FLUoxetine 20 MG CAP PO SCH (08:37)
[2017-01-09] MEDS: OSELTAMIVIR PHOSPHATE 75 MG CAP (TAMIFLU) PO SCH ×2 (08:38→22:34)
[2017-01-09] MEDS: LOSARTAN 25 MG TAB PO SCH (08:39)
[2017-01-09] MEDS: ATENOLOL 50 MG TAB PO SCH ×2 (08:39→22:36)
[2017-01-09] MEDS: amLODIPine 10 MG TAB PO SCH (08:39)
[2017-01-09] MEDS: **hydrALAZINE HCL** 25 MG TAB PO SCH ×3 (08:40→22:36)
[2017-01-09] MEDS: SODIUM BICARBONATE 325 MG TAB PO SCH ×2 (08:48→22:32)
[2017-01-09] MEDS ORDERED: K-PHOS NEUTRAL 250MG TABLET (SOD.PHOSPHATE/POT.PHOSPHATE) PO SCH (09:00)
[2017-01-09] MEDS ORDERED: AZITHROMYCIN 250 MG TAB PO SCH (09:00)
[2017-01-09] MEDS: IPRATROPIUM 0.5MG/ALBUTEROL 2.5MG INH SOL UD 3ML (DUONEB)(J7620) NEB SCH ×4 (11:05→23:44)
[2017-01-09] MEDS: VANCOMYCIN HCL 1,000 MG, VIAL MATE ADAPTER 1 EACH in D5W 250 ML IV SCH ×2 (11:34→23:28)
[2017-01-09 14:00] VITALS: BP 138/76
--- NOTE | 2017-01-09 16:11 | IPNPDOC ---
Text Note Date of Service The patient was seen on 01/09/17. NOTE Subjective: Still has a productive cough. + SOB. No CP/Palpitations. Objective: Vitals: (see below) General: No acute distress, laying comfortably in bed. HEENT: Moist mucous membranes. Neck: No JVD or lymphadenopathy Cardiac: RRR, No murmurs Pulm: Clear to auscultation b/l. No wheezing, rhonchi Abd: NT/ND + BS Ext: No edema or cyanosis Labs (see below) Images: CT Chest 01/08/17 Findings: Small left pleural effusion with moderate left lower lobe consolidation along with smaller right lower lobe consolidation and scattered bilateral infiltrates is most compatible with multifocal pneumonia and correlation is recommended. Mild reactive adenopathy is suggested. Minimal atherosclerotic changes to the thoracic aorta and coronary arteries noted without aortic aneurysm/dissection, cardiomegaly or pericardial effusion. Tracheobronchial tree is patent. No pneumothorax. Surrounding musculoskeletal structures demonstrate diffuse sclerotic changes along with innumerable lytic lesions compatible with metastatic disease. Asymmetric left axillary lymph nodes are identified. Impression: 1. Diffuse osseous metastatic disease. 2. Small left pleural effusion with moderate left lower lobe consolidation and scattered bilateral infiltrates suggest multifocal pneumonia. 3. Asymmetric left axillary lymph nodes possibly related to patient's metastatic disease. Assessment/Plan 1. HCAP - recent admit for severe hypercalcemia. On Vanc/Zosyn pending cultures. Nebs, increased to q4h. Mucinex added. Incentive spirometer. 2. 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 Will need outpt heme/onc followup. 3. HTN - controlled - cont home meds 4. HLD - cont home meds 5. Depression/anxiety - cont home meds 6. Fibromyalgia. 7. Hypokalemia/hypophosphatemia/hypomagnesemia - replaced DVT prophy: Lovenox SQ VS,Fishbone, I+O VS, Fishbone, I+O Laboratory Tests 01/09/17 06:38 Calcium Level 7.6 L, Red Blood Count 3.51 L, Mean Corpuscular Volume 82.8, Mean Corpuscular Hemoglobin 29.1, Mean Corpuscular Hemoglobin Concent 35.1, Red Cell Distribution Width 14.3 Vital Signs Date Time Temp Pulse Resp B/P Pulse Ox O2 Delivery O2 Flow Rate FiO2 01/09/17 14:00 98.8 81 20 138/76 91 Room Air I&O- Last 24 Hours up to 6 AM 01/09/17 06:00 Intake Total 600 ml Output Total 0 ml Balance 600 ml ROBLES TENORIO MD Jan 09, 2017 16:11
[2017-01-09 22:00] VITALS: BP 140/77
[2017-01-09] MEDS: ACETAMINOPHEN TAB 650MG DOSE (2X325MG) PO PRN (22:33)
[2017-01-09] MEDS: SIMVASTATIN 20 MG TAB PO SCH (22:35)
[2017-01-09] MEDS: EZETIMIBE 10 MG TAB (ZETIA) PO SCH (22:36)
[2017-01-09] MEDS: GABAPENTIN 300 MG CAP PO SCH (22:38)
[2017-01-10] MEDS: IPRATROPIUM 0.5MG/ALBUTEROL 2.5MG INH SOL UD 3ML (DUONEB)(J7620) NEB SCH ×5 (04:00→20:59)
[2017-01-10] MEDS: PIPERACILLIN/TAZOBACTAM SOD 4.5 GM in D5W MINI-BAG PLUS 50 ML IV SCH ×4 (05:00→22:41)
[2017-01-10 06:00] VITALS: BP 135/68
[2017-01-10 06:45] LABS: MEAN CORPUSCULAR HEMOGLOBIN 28.8 pg (27.0-33.0); MEAN CORPUSCULAR HGB CONC 35.2 g/dl (32.0-36.5); MEAN CORPUSCULAR VOLUME 81.8 fl (80.0-96.0); WHITE BLOOD COUNT 9.2 K/mm3 (4.0-10.0)
[2017-01-10 06:53] LABS: BLOOD UREA NITROGEN 4 MG/DL (7-18); CREATININE FOR GFR 0.77 MG/DL (0.55-1.02); GLUCOSE, FASTING 119 MG/DL (80-110)
[2017-01-10 06:54] LABS: ANION GAP 13 MEQ/L (8-16); CALCIUM LEVEL 8.2 MG/DL (8.8-10.2); CARBON DIOXIDE LEVEL 21 MEQ/L (21-32); CHLORIDE LEVEL 104 MEQ/L (98-107); GLOMERULAR FILTRATION RATE > 60.0 (>45); SODIUM LEVEL 138 MEQ/L (136-145)
[2017-01-10] MEDS ORDERED: POTASSIUM CHLORIDE 10 MEQ SR TABLET PO ONE ×2 (08:15→11:00)
[2017-01-10 08:25] LABS: MAGNESIUM LEVEL 1.9 MG/DL (1.8-2.4); PHOSPHORUS LEVEL 2.6 MG/DL (2.5-4.9)
[2017-01-10] MEDS: MAGNESIUM CHLORIDE 64 MG TABCR (SLO MAG) PO SCH (08:37)
[2017-01-10] MEDS: K-PHOS ORIGINAL (POT.ACID PHOSPHATE) 500MG TAB PO SCH ×2 (08:38→20:33)
[2017-01-10] MEDS: SODIUM BICARBONATE 325 MG TAB PO SCH ×2 (08:38→20:33)
[2017-01-10] MEDS: ATENOLOL 50 MG TAB PO SCH ×2 (08:39→20:33)
[2017-01-10] MEDS: SENOKOT S TAB PO SCH ×3 (08:40→20:40)
[2017-01-10] MEDS: OSELTAMIVIR PHOSPHATE 75 MG CAP (TAMIFLU) PO SCH ×2 (08:40→20:33)
[2017-01-10] MEDS: LOSARTAN 25 MG TAB PO SCH (08:40)
[2017-01-10] MEDS: OMEGA-3 1050MG CAPSULE PO SCH ×3 (08:40→20:34)
[2017-01-10] MEDS: FLUoxetine 20 MG CAP PO SCH (08:40)
[2017-01-10] MEDS: ENOXAPARIN 40 MG/0.4 ML SYRINGE (J1650) SC SCH (08:40)
[2017-01-10] MEDS: guaiFENesin ER 600 MG TAB PO SCH ×2 (08:41→20:34)
[2017-01-10] MEDS: predniSONE 10 MG TAB PO SCH (08:41)
[2017-01-10] MEDS: ASPIRIN 81 MG ENTERIC TAB PO SCH (08:41)
[2017-01-10] MEDS: **hydrALAZINE HCL** 25 MG TAB PO SCH ×3 (08:41→20:34)
[2017-01-10] MEDS: amLODIPine 10 MG TAB PO SCH (08:42)
[2017-01-10] MEDS: BUDESONIDE 0.5 MG/2 ML INHALATION SUSPENSION INH SCH ×2 (09:03→20:59)
--- NOTE | 2017-01-10 11:57 | IPNPDOC ---
Text Note Date of Service The patient was seen on 01/10/17. NOTE Subjective: Patient is a 66-year-old female with cancer of unknown primary currently being treated for hospital-acquired pneumonia, influenza. Patient says that she is feeling all right today. She says that she is getting better, breathing better. She reports her breathing is almost back to normal. She denies any fevers, chills, sweats, chest pain/pressure, abdominal pain, nausea, vomiting, diarrhea , constipation, muscle aches or pains. Objective: Vital signs: Temperature 99.4, MAXIMUM TEMPERATURE 99.4, pulse 88, respiratory rate 20, blood pressure 182/98, pulse ox 91% on room air Gen.: Patient awake, alert and oriented, verbal and able to answer questions appropriately. Patient does not appear to be in any acute distress Heart: Regular rate and rhythm, normal S1-S2. No murmurs, rubs, clicks or gallops Lungs: Bilateral wheezes with right-sided rhonchi to auscultation Abdomen: Active bowel sounds, soft, nontender, no masses to palpation Extremities: No swelling in either lower extremity Laboratory data: CBC: White blood cells 9.2, hemoglobin and hematocrit 10.2/29.0, platelets 285 Chemistry: Sodium 138, potassium 3.0, chloride 104, carbon dioxide 21, BUN 4, creatinine 0.77, glucose 119, calcium 8.2, phosphorus 2.6, magnesium 1.9 C-reactive protein 2.50 Microbiology: Blood cultures 2 no growth after 24 hours Sputum Gram stain and culture pending Assessment: Patient is a 66-year-old female with cancer of unknown primary currently being treated for hospital-acquired pneumonia, influenza. She is improving daily and says her breathing is almost back to normal. Plan: #1: Hospital-acquired pneumonia: Patient will continue on Zosyn 4.5 g IV every 6 hours, vancomycin 1 g IV every 12 hours. Patient gave sputum sample this morning, microbiology pending. Follow-up results from sputum culture when available., Continue Tylenol 650 mg by mouth every 4 hours when necessary, albuterol sulfate 2.5 mg nebulizer every 2 hours when necessary, DuoNeb 3 mL every 4 hours, Pulmicort 0.5 mg inhalation twice a day #2: Acute influenza: Stable, continue oseltamivir 75 mg by mouth twice a day #3: Cancer of unknown primary: Patient with bony metastasis. Patient will continue to need outpatient follow-up. Continue Tylenol 650 mg by mouth every 4 hours when necessary, [place] 7.5/325 one tablet by mouth every 4 hours when necessary #4: Hypertension: Continue amlodipine 10 mg by mouth daily, atenolol 100 mg by mouth twice a day, hydralazine 25 mg by mouth 3 times a day, losartan 25 mg by mouth daily #5: Dyslipidemia: Continue simvastatin 20 mg by mouth daily at bedtime #6: Depression and anxiety: Continue fluoxetine 40 mg by mouth daily #7: Fibromyalgia: Continue gabapentin 300 mg by mouth daily at bedtime #8: Hypokalemia: Order placed for 40 mEq of oral KCl 2 #9: DVT prophylaxis: Continue Lovenox 40 mg subcutaneously daily My preceptor for this patient encounter was physically present in the building during the encounter and was fully available. As needed, all aspects of the patient interview, examination, medical decision making process, and medical care plan development were reviewed and approved by the preceptor. Preceptor is aware and concurs with the plan as stated in the body of this note and will attest to such by his/her cosignature VS,Hernandez, I+O VS, Hernandez, I+O Laboratory Tests 01/10/17 06:18 Calcium Level 8.2 L, Red Blood Count 3.55 L, Mean Corpuscular Volume 81.8, Mean Corpuscular Hemoglobin 28.8, Mean Corpuscular Hemoglobin Concent 35.2, Red Cell Distribution Width 14.0 Vital Signs Date Time Temp Pulse Resp B/P Pulse Ox O2 Delivery O2 Flow Rate FiO2 01/10/17 08:39 88 182/98 01/10/17 06:00 99.4 20 91 Room Air I&O- Last 24 Hours up to 6 AM 01/10/17 06:00 Intake Total 2020 ml Output Total 0 ml Balance 2020 ml JAMARCUS FERNANDO DO Jan 10, 2017 11:57
[2017-01-10] MEDS: VANCOMYCIN HCL 1,000 MG, VIAL MATE ADAPTER 1 EACH in D5W 250 ML IV SCH ×2 (12:10→23:31)
[2017-01-10 14:00] VITALS: BP 129/72
[2017-01-10] MEDS: SIMVASTATIN 20 MG TAB PO SCH (20:34)
[2017-01-10] MEDS: GABAPENTIN 300 MG CAP PO SCH (20:34)
[2017-01-10] MEDS: EZETIMIBE 10 MG TAB (ZETIA) PO SCH (20:34)
--- NOTE | 2017-01-10 20:54 | EDDOCDS ---
Physician Documentation [facility] Name: Katlin Cates Age: 66 yrs Sex: Female : 1950 Arrival Date: 01/08/2017 Time: 14:02 Bed 19 Private MD: Arturo Welch MD Disposition: 01/08/17 17:10 Hospitalization ordered by Bere Mead for Inpatient Admission. Preliminary diagnosis is Lobar pneumonia, unspecified organism. - Bed requested for 5 Garcia. - Status is Inpatient Admission. myron - Condition is Stable. - Problem is new. - Symptoms are unchanged. Historical: - Allergies: Flagyl; SULFA (SULFONAMIDES); - Home Meds: 1. Tylenol 325 mg Oral tab 2 tabs every 4 hours (Last dose: 01/08/2017 10:00) 2. hydrocodone-acetaminophen 7.5-325 mg oral tab every 4 hours (Last dose: 01/07/2017) 3. amlodipine 10 mg Oral tab 1 tab once daily (Last dose: 01/08/2017 10:00) 4. cefdinir 300 mg Oral cap 1 cap every 12 hours for uti (Last dose: 01/08/2017 10:00) 5. citric acid/sodium citrate 334-500mg/5ml twice a day (Last dose: 01/08/2017 10:00) 6. hydralazine 25 mg Oral tab every 8 hours (Last dose: 01/08/2017 09:00) 7. Lidoderm 4% cream Topical once daily prn 8. losartan 25 mg oral tab 1 tab once daily (Last dose: 01/08/2017 10:00) 9. magnesium chloride 64mg daily (Last dose: 01/08/2017 10:00) 10. potassium phospate 500 mg twice a day (Last dose: 01/08/2017 10:00) 11. aspirin 81 mg Oral tab 1 tab once daily (Last dose: 01/08/2017 10:00) 12. atenolol 100 mg Oral tab 1 tab twice a day (Last dose: 01/08/2017 10:00) 13. Strattera 60 mg oral cap 1 cap nightly (Last dose: 01/07/2017) 14. Zetia 10 mg Oral tab 1 tab once daily (Last dose: 01/07/2017) 15. Fish Oil 1,000 mg oral cap three times a day (Last dose: 01/08/2017 10:00) 16. gabapentin 300 mg Oral tab nightly (Last dose: 01/07/2017) 17. fluoxetine 40 mg Oral cap 1 cap once daily (Last dose: 01/08/2017 10:00) 18. hydroxyzine HCl 50 mg Oral tab 1 tab three times a day as needed 19. simvastatin 20 mg Oral tab 1 tab nightly (Last dose: 01/07/2017) - PMHx: ADHD; Anxiety; Depression; Hypercholesterolemia; Hypertension; Fibromyalgia; - PSHx: Hysterectomy; Appendectomy; Tubal ligation; - Social history: Smoking status: Patient states former smoker of tobacco. No barriers to communication noted, The patient speaks fluent Malay, Speaks appropriately for age. - Family history: Not pertinent. - : Unable to assess if pt is on anticoagulants. The pt / caregiver states he / she is not on anticoagulants. Home medication list is obtained from the patient. - Exposure Risk Screening:: None identified. Vital Signs: 01/08 14:04 BP 137 / 76; Pulse 81; Resp 18 S; Temp 96.4(T); Pulse Ox 95% on R/A; Weight 86.18 kg / gr2 189.99 lbs (R); Height 5 ft. 5 in. (165.10 cm) (R); Pain 5/10; 16:08 BP 134 / 69 (auto/); Pulse 80; Resp 20 S; Pulse Ox 93% on R/A; ms2 16:47 BP 135 / 64 (auto/); ms2 16:48 Pulse 72 MON; Pulse Ox 92% ; ms2 16:50 Pulse 74 MON; Resp 20 S; Pulse Ox 94% ; ms2 16:52 BP 134 / 64; Pulse 73; Resp 20 S; Pulse Ox 93% on R/A; ms2 19:18 BP 112 / 63; Pulse 78; Resp 20 S; Pulse Ox 94% on R/A; ms2 19:40 Temp 97(O); ms2 14:04 Body Mass Index 31.62 (86.18 kg, 165.10 cm) gr2 MDM: 14:52 Financial registration complete. mm15 14:57 [facility] Payment Agreement was scanned into [email or web address] and attached to record. mm15 15:05 IV Saline Lock ordered. le 15:05 Albuterol-Ipratropium 3 ml Inhalation once ordered. le 15:05 Call Respiratory ordered. le 15:06 CBC with Diff Ordered. EDMS 15:06 Complete Comphrensive Metabolic Ordered. EDMS 15:06 Magnesium Level Ordered. EDMS 15:06 Phosphorous Level Ordered. EDMS 15:08 Call Respiratory complete. deg 15:15 Call Respiratory ordered. le 15:15 -Blood Culture (Adults Only), peripheral from different site, or from device/port/PICC le etc. if present ordered. 15:15 Piperacillin-Tazobactam 3.375 grams IVPB once over 30 mins; dilute in 50mL of NS or D5W le ordered. 15:15 azithromycin 500 mg IVPB once over 1 hrs; dilute in 250mL of D5W or NS ordered. le 15:15 vancomycin (loading dose for pt. wt. >= 80kg) 2000 mg IVPB once ordered. le 15:16 -Arterial Blood Gas Ordered. EDMS 15:16 -Blood Culture Ordered. EDMS 15:16 Lactic Acid (Alexander tube on ice) Ordered. EDMS 15:20 C REACTIVE PROTEIN QUANTITATIV Ordered. EDMS 15:22 -Blood Culture (Adults Only), peripheral from different site, or from device/port/PICC deg etc. if present complete. 15:23 Call Respiratory complete. deg 15:23 BLOOD CULTURES Ordered. EDMS 15:25 HYDROcodone-acetaminophen 5 mg-325 mg 1 tabs PO once ordered. le 15:31 Misc Router Tender Order ordered. le 15:33 Misc Router Tender Order complete. deg 15:34 RESPIRATORY PANEL Ordered. EDMS 15:45 BED REQUEST+ADM ordered. EDMS 16:18 C REACTIVE PROTEIN QUANTITATIV Reviewed. le 16:18 CBC with Diff Reviewed. le 16:18 Complete Comphrensive Metabolic Reviewed. le 16:18 Magnesium Level Reviewed. le 16:18 Phosphorous Level Reviewed. le 16:18 -Arterial Blood Gas Reviewed. le 16:18 Lactic Acid (Alexander tube on ice) Reviewed. le 16:20 Potassium Chloride Packet 40 mEq PO once ordered. le 16:20 Magnesium Oxide 400 mg PO once ordered. le 16:25 CT Chest With Contrast Ordered. EDMS 16:55 hydrALAZINE 25 mg PO once ordered. le 17:39 Admission / Observation Status ordered. EDMS 17:39 REGULAR DIET ordered. EDMS 19:13 Albuterol 2.5 mg Nebulizer once ordered. ms2 19:23 2 GRAM SODIUM DIET ordered. EDMS 19:32 COMPLETE BLOOD COUNT Ordered. EDMS 19:32 BASIC METABOLIC PROFILE Ordered. EDMS 01/09 20:57 T-Sheet-- Draft Copy was scanned into [email or web address] and attached to record. klr Administered Medications: 01/08 15:09 Drug: Albuterol-Ipratropium 3 ml [ipratropium-albuterol 0.5 mg-3 mg(2.5 mg base)/3 mL ac1 nebulization soln (3 mL)] Route: Inhalation; 15:14 Follow up: BS WHZ BILAT BEFORE AND AFTER TX ac1 15:53 Drug: Piperacillin-Tazobactam 3.375 grams [piperacillin-tazobactam 3.375 gram ms2 intravenous solution] Route: IVPB; Infused Over: 30 mins; Site: left wrist; 15:54 Drug: HYDROcodone-acetaminophen 1 tabs [hydrocodone 5 mg-acetaminophen 325 mg tablet (1 ms2 tabs)] Route: PO; 16:49 Drug: vancomycin (loading dose for pt. wt. >= 80kg) 2000 mg Route: IVPB; Site: left ms2 forearm; 17:24 Drug: hydrALAZINE 25 mg [hydralazine 25 mg tablet (1 tabs)] Route: PO; ms2 17:25 Drug: Potassium Chloride 40 mEq [potassium chloride 20 mEq oral packet (2 packets)] ms2 Route: PO; 17:25 Drug: Magnesium Oxide 400 mg [magnesium oxide 400 mg tablet (1 tabs)] Route: PO; ms2 18:55 Drug: azithromycin 500 mg [azithromycin 500 mg intravenous solution] Route: IVPB; ms2 Infused Over: 1 hrs; Site: left forearm; 19:23 Drug: Albuterol 2.5 mg [albuterol sulfate 2.5 mg/0.5 mL solution for nebulization (0.5 jh6 mL)] Route: Nebulizer; Signatures: Dispatcher [employer] EDMS Enid Kiser, Biological Sciences Professor Unit Tacho Krishnamurthy RN RN ms2 Teresa Olmos RN RN srm Newman, Jill New, RN RN jan Westcott, Lisa, [employer] June Berger mm15 Beth Marks r Raul Sanabria RN RN sa Cowles, Amy RT ac1 Sal Barlow jh6 The chart was reviewed and I authenticate all verbal orders and agree with the evaluation and treatment provided.Corrections: (The following items were deleted from the chart) 15:11 15:06 D-DIMER QUANT+LAB ordered. EDMS EDMS 15:20 15:16 C REACTIVE PROTEIN QUANTITATIV+LAB ordered. EDMS EDMS 16:24 15:06 Chest, 2 view (PA\E\Lat)+XR ordered. EDMS EDMS Attachments: 14:57 [facility] [place] Agreement mm15 01/09 20:57 T-Sheet-- Draft Copy klr Chart Complete MTDD
--- NOTE | 2017-01-10 20:54 | EDDOCDS ---
Nurse's Notes [facility] Name: Katlin Cates Age: 66 yrs Sex: Female : 1950 Arrival Date: 01/08/2017 Time: 14:02 Bed 19 Private MD: Arturo Welch MD Diagnosis: Lobar pneumonia, unspecified organism Presentation: 01/08 14:12 Presenting complaint: Patient states: coughing and wheezing for 2 days. seen at [facility] urgent care and sent here for further eval. last week dx with bone cancer after admission- was seen for hypercalcemia and low potassium. Adult Sepsis Screening: The patient does not have new or worsening altered mentation. Patient's respiratory rate is less than 22. Systolic blood pressure is greater than 100. Patient has a qSOFA score of 0- Negative Sepsis Screen. Suicide/Homicide risk assessment- the patient denies having any suicidal and/or homicidal ideations and does not present with any other emotional, behavioral or mental health complaints. Status: Patient is not a service writer advisor or dependent. Transition of care: Patient was received from [facility]. 14:12 Acuity: VAZQUEZ Level 3 [facility] 14:12 Method Of Arrival: Wheelchair [facility] Triage Assessment: 14:21 General: Appears in no apparent distress, Behavior is appropriate for age, cooperative. [facility] Pain: Pain currently is 6 out of 10 on a pain scale. Respiratory: Onset: The symptoms/episode began/occurred 2 days. Historical: - Allergies: Flagyl; SULFA (SULFONAMIDES); - Home Meds: 1. Tylenol 325 mg Oral tab 2 tabs every 4 hours (Last dose: 01/08/2017 10:00) 2. hydrocodone-acetaminophen 7.5-325 mg oral tab every 4 hours (Last dose: 01/07/2017) 3. amlodipine 10 mg Oral tab 1 tab once daily (Last dose: 01/08/2017 10:00) 4. cefdinir 300 mg Oral cap 1 cap every 12 hours for uti (Last dose: 01/08/2017 10:00) 5. citric acid/sodium citrate 334-500mg/5ml twice a day (Last dose: 01/08/2017 10:00) 6. hydralazine 25 mg Oral tab every 8 hours (Last dose: 01/08/2017 09:00) 7. Lidoderm 4% cream Topical once daily prn 8. losartan 25 mg oral tab 1 tab once daily (Last dose: 01/08/2017 10:00) 9. magnesium chloride 64mg daily (Last dose: 01/08/2017 10:00) 10. potassium phospate 500 mg twice a day (Last dose: 01/08/2017 10:00) 11. aspirin 81 mg Oral tab 1 tab once daily (Last dose: 01/08/2017 10:00) 12. atenolol 100 mg Oral tab 1 tab twice a day (Last dose: 01/08/2017 10:00) 13. Strattera 60 mg oral cap 1 cap nightly (Last dose: 01/07/2017) 14. Zetia 10 mg Oral tab 1 tab once daily (Last dose: 01/07/2017) 15. Fish Oil 1,000 mg oral cap three times a day (Last dose: 01/08/2017 10:00) 16. gabapentin 300 mg Oral tab nightly (Last dose: 01/07/2017) 17. fluoxetine 40 mg Oral cap 1 cap once daily (Last dose: 01/08/2017 10:00) 18. hydroxyzine HCl 50 mg Oral tab 1 tab three times a day as needed 19. simvastatin 20 mg Oral tab 1 tab nightly (Last dose: 01/07/2017) - PMHx: ADHD; Anxiety; Depression; Hypercholesterolemia; Hypertension; Fibromyalgia; - PSHx: Hysterectomy; Appendectomy; Tubal ligation; - Social history: Smoking status: Patient states former smoker of tobacco. No barriers to communication noted, The patient speaks fluent Guamanian, Speaks appropriately for age. - Family history: Not pertinent. - : Unable to assess if pt is on anticoagulants. The pt / caregiver states he / she is not on anticoagulants. Home medication list is obtained from the patient. - Exposure Risk Screening:: None identified. Screenin:39 Screening information is obtained from prior medical records. Fall risk: No risks ms2 identified. Assistance ADL's: requires no assistance with activities of daily living. Abuse/DV Screen: The patient / caregiver reports he/she is: not in a situation that causes fear, pain or injury. Nutritional screening: No deficits noted. Advance Directives: Currently, there is no health care proxy. There is no active DNR order. There is no living will. There is no Power of Mushroom Packer. Advance directive information has not previously been placed in an [facility] medical record. Further advance directive information is declined. home support is adequate. Assessment: 15:50 General: Appears ill, Behavior is cooperative. Pain: Location: back Pain currently is 6 ms2 out of 10 on a pain scale. Neurological: Level of Consciousness is awake, alert, obeys commands. Cardiovascular: No deficits noted. Respiratory: Airway is patent Respiratory effort is even, labored, Respiratory pattern is regular, symmetrical, Breath sounds with rhonchi bilaterally. Breath sounds with wheezes expiratory. GI: Abdomen is non- distended obese. Derm: Skin is pink, warm & dry. Musculoskeletal: Range of motion intact in all extremities. 16:53 General: Appears ill, Behavior is cooperative. General: no reaction to ct contrast. ms2 Neurological: No deficits noted. Respiratory: Respiratory effort is even, labored. Derm: Skin is pink, warm & dry. 17:30 General: hospitalist in seeing pt. ms2 17:31 General: Appears in no apparent distress, Behavior is cooperative. Neurological: No ms2 deficits noted. Respiratory: Airway is compromised Respiratory effort is even, labored, pt aware if needs tx to call. GI: No deficits noted. Derm: Skin is pink, warm & dry. Musculoskeletal: No deficits noted. 18:17 Adult Sepsis Screening: The patient does not have new or worsening altered mentation. ms2 Patient's respiratory rate is less than 22. General: Appears ill, Behavior is cooperative. General: up to commode and voided --assisted by family. Neurological: No deficits noted. Respiratory: Airway is patent Respiratory effort is even, labored, Respiratory pattern is regular, symmetrical. Derm: Skin is pink, warm & dry. Musculoskeletal: No deficits noted. 19:08 General: hospitalist paged -dr shaw-for breathing tx for pt. Neurological: No ms2 deficits noted. Respiratory: Airway is patent Respiratory effort is even, labored, Respiratory pattern is regular, symmetrical. Derm: Skin is pink, warm & dry. Musculoskeletal: No deficits noted. 19:19 General: order received from dr Blackburn--pt aware--pt coughing more and increased SOB. ms2 19:22 General: RT here to do tx.. ms2 19:40 Adult Sepsis Screening: Patient has new or worsening altered mentation (1 point). ms2 Patient's respiratory rate is less than 22. Systolic blood pressure is greater than 100. Patient has a qSOFA score of 0- Negative Sepsis Screen. General: Appears ill, Behavior is cooperative, pleasant, daughters with pt throughout staya in ed. Neurological: Level of Consciousness is awake, alert, obeys commands. Respiratory: Airway is patent Respiratory effort is even, labored, Respiratory pattern is regular, symmetrical. Derm: Skin is pink, warm & dry. Musculoskeletal: Range of motion intact in all extremities. 21:32 General: dr shaw aware of positive Flu. ms2 Vital Signs: 14:04 BP 137 / 76; Pulse 81; Resp 18 S; Temp 96.4(T); Pulse Ox 95% on R/A; Weight 86.18 kg gr2 (R); Height 5 ft. 5 in. (165.10 cm) (R); Pain 5/10; 16:08 BP 134 / 69 (auto/); Pulse 80; Resp 20 S; Pulse Ox 93% on R/A; ms2 16:47 BP 135 / 64 (auto/); ms2 16:48 Pulse 72 MON; Pulse Ox 92% ; ms2 16:50 Pulse 74 MON; Resp 20 S; Pulse Ox 94% ; ms2 16:52 BP 134 / 64; Pulse 73; Resp 20 S; Pulse Ox 93% on R/A; ms2 19:18 BP 112 / 63; Pulse 78; Resp 20 S; Pulse Ox 94% on R/A; ms2 19:40 Temp 97(O); ms2 14:04 Body Mass Index 31.62 (86.18 kg, 165.10 cm) gr2 Vitals: 14:04 Log In Time: January 08, 2017 at 14:04. RN notified that patient meets Red Flag gr2 criteria. ED Course: 14:03 Patient visited by Heaven Arreguin. gr2 14:03 Patient moved to Waiting gr2 14:04 Arturo Welch is Private Physician. gr2 14:07 Patient visited by Heaven Arreguin. gr2 14:07 Patient moved to Pre RCE gr2 14:13 Triage Initiated srm 14:21 Patient moved to 19 kcs 14:26 Ram[facility] Razo FNP is [facility]. le 14:36 Patient visited by Ramona Razo FNP. le 14:37 Patient visited by Ramona Razo FNP. le 14:57 [facility] Payment Agreement was scanned into [employer] and attached to record. mm15 15:15 Inserted saline lock: 20 gauge in left forearm The patient tolerated the procedure ms2 well. No procedures done that require assistance. 15:20 Patient visited by Tacho Morales RN. ms2 15:21 C REACTIVE PROTEIN QUANTITATIV Sent. ms2 15:21 Lactic Acid (Alexander tube on ice) Sent. ms2 15:21 Phosphorous Level Sent. ms2 15:21 Magnesium Level Sent. ms2 15:21 Complete Comphrensive Metabolic Sent. ms2 15:21 CBC with Diff Sent. ms2 15:30 Patient visited by Tacho Morales,BANG. ms2 15:30 BLOOD CULTURES Sent. ms2 15:47 -Arterial Blood Gas Sent. km6 15:58 RESPIRATORY PANEL Sent. ms2 16:13 Patient visited by Tacho Morales,BANG. ms2 16:16 The patient / caregiver is instructed regarding the plan of care and ED course. ms2 16:53 The patient / caregiver is instructed regarding the plan of care and ED course. ms2 16:54 IV is patent, is intact, is free of redness or swelling. iv vancomycin on for over 2h ms2 --no reaction. 17:09 Bere Mead is Hospitalizing Provider. le 17:24 Patient visited by Tacho Morales,BANG. ms2 17:34 The patient / caregiver is instructed regarding the plan of care and ED course. ms2 17:34 IV is intact, is free of redness or swelling. ms2 17:45 CT Chest With Contrast Returned. EDMS 18:18 The patient / caregiver is instructed regarding the plan of care and ED course. ms2 18:18 IV is patent, is intact, is free of redness or swelling. solution is infusing as ms2 ordered. vancomycin infusing ---no reaction. 18:28 rn Peg on [address] [facility] to return call. ms2 18:36 Peg RN from [facility] called ---room not yet cleaned -housekeeping have been called. ms2 19:09 The patient / caregiver is instructed regarding the plan of care and ED course. ms2 19:09 IV is patent, is intact, is free of redness or swelling. solution is infusing as ms2 ordered. iv zithromycin infusing --no reaction. 19:39 Notified nurse practitioner of Lonnie Real notified of Influenza A H3 positive. nov 19:41 The patient / caregiver is instructed regarding the plan of care and ED course. floor ms2 notified pt has flu---pt to floor with mask on. 19:42 IV is patent, is intact, is free of redness or swelling. iv zithromax infusing well on ms2 pump---no reaction. 01/09 20:57 T-Sheet-- Draft Copy was scanned into [employer] and attached to record. klr Administered Medications: 01/08 15:09 Drug: Albuterol-Ipratropium 3 ml [ipratropium-albuterol 0.5 mg-3 mg(2.5 mg base)/3 mL ac1 nebulization soln (3 mL)] Route: Inhalation; 15:14 Follow up: KATHY MURPHY BEFORE AND AFTER TX ac1 15:53 Drug: Piperacillin-Tazobactam 3.375 grams [piperacillin-tazobactam 3.375 gram ms2 intravenous solution] Route: IVPB; Infused Over: 30 mins; Site: left wrist; 15:54 Drug: HYDROcodone-acetaminophen 1 tabs [hydrocodone 5 mg-acetaminophen 325 mg tablet (1 ms2 tabs)] Route: PO; 16:49 Drug: vancomycin (loading dose for pt. wt. >= 80kg) 2000 mg Route: IVPB; Site: left ms2 forearm; 17:24 Drug: hydrALAZINE 25 mg [hydralazine 25 mg tablet (1 tabs)] Route: PO; ms2 17:25 Drug: Potassium Chloride 40 mEq [potassium chloride 20 mEq oral packet (2 packets)] ms2 Route: PO; 17:25 Drug: Magnesium Oxide 400 mg [magnesium oxide 400 mg tablet (1 tabs)] Route: PO; ms2 18:55 Drug: azithromycin 500 mg [azithromycin 500 mg intravenous solution] Route: IVPB; ms2 Infused Over: 1 hrs; Site: left forearm; 19:23 Drug: Albuterol 2.5 mg [albuterol sulfate 2.5 mg/0.5 mL solution for nebulization (0.5 jh6 mL)] Route: Nebulizer; Intake: 16:32 IV: 50.00ml (NS); Total: 50.00ml. ms2 18:25 PO: 480.00ml (Water); IV: 250.00ml (NS); Total: 780.00ml. ms2 19:20 PO: 60.00ml (Milk); Total: 840.00ml. ms2 Output: 16:13 Urine: 700.00ml (Voided); Total: 700.00ml. ms2 18:17 Urine: 825.00ml (Voided); Total: 1525.00ml. ms2 RT: 15:09 Initial Med Neb Given as ordered. ac1 15:47 ABG's drawn from right radial artery allens test done and positive pressure held for 5 km6 minutes specimen sent pt. tolerated well. 16:01 Respiratory: Breath sounds with wheezes bilaterally. at expiration. ac1 19:24 Subsequent Med Neb Given as ordered Patient was reinforced on procedure Patient jh6 tolerated procedure well without adverse effect. Respiratory: Airway is patent Respiratory effort is even, unlabored, Respiratory pattern is regular symmetrical, Breath sounds are coarse in right upper lobe, left upper lobe, right middle lobe, left lower lobe and right lower lobe Breath sounds with wheezes in right upper lobe, left upper lobe, right middle lobe, left lower lobe and right lower lobe at expiration. 19:34 Respiratory: Airway is patent Respiratory effort is even, unlabored, Respiratory jh6 pattern is regular symmetrical, Breath sounds are coarse in right upper lobe, left upper lobe, right middle lobe, left lower lobe and right lower lobe Breath sounds with wheezes in right upper lobe, left upper lobe, right middle lobe, left lower lobe and right lower lobe at expiration. Order Results: Lab Order: CBC with Diff; SPEC'M 01/08/17 15:18 Test: WHITE BLOOD COUNT; Value: 8.6; Range: 4.0-10.0; Units: K/mm3; Status: F Test: RED BLOOD COUNT; Value: 3.76; Range: 4.00-5.40; Abnormal: Below low normal; Units: M/mm3; Status: F Test: HEMOGLOBIN; Value: 10.7; Range: 12.0-16.0; Abnormal: Below low normal; Units: g/dl; Status: F Test: HEMATOCRIT; Value: 30.5; Range: 36.0-47.0; Abnormal: Below low normal; Units: %; Status: F Test: MEAN CORPUSCULAR VOLUME; Value: 81.0; Range: 80.0-96.0; Units: fl; Status: F Test: MEAN CORPUSCULAR HEMOGLOBIN; Value: 28.4; Range: 27.0-33.0; Units: pg; Status: F Test: MEAN CORPUSCULAR HGB CONC; Value: 35.0; Range: 32.0-36.5; Units: g/dl; Status: F Test: RED CELL DISTRIBUTION WIDTH; Value: 13.9; Range: 11.5-14.5; Units: %; Status: F Test: PLATELET COUNT, AUTOMATED; Value: 271; Range: 150-450; Units: k/mm3; Status: F Test: NEUTROPHILS %; Value: 79.3; Range: 36.0-66.0; Abnormal: Above high normal; Units: %; Status: F Test: LYMPH %; Value: 15.5; Range: 24.0-44.0; Abnormal: Below low normal; Units: %; Status: F Test: MONO %; Value: 2.6; Range: 0.0-5.0; Units: %; Status: F Test: EOS %; Value: 1.1; Range: 0.0-3.0; Units: %; Status: F Test: BASO %; Value: 0.3; Range: 0.0-1.0; Units: %; Status: F Test: LARGE UNSTAINED CELL %; Value: 1.1; Range: 0.0-4.0; Units: %; Status: F Test: NEUTROPHILS #; Value: 6.8; Range: 1.8-7.7; Units: K/mm3; Status: F Test: LYMPH #; Value: 1.3; Range: 1.5-4.5; Abnormal: Below low normal; Units: K/mm3; Status: F Test: MONO #; Value: 0.2; Range: 0.0-0.8; Units: K/mm3; Status: F Test: EOS #; Value: 0.1; Range: 0.0-0.50; Units: K/mm3; Status: F Test: BASO #; Value: 0.0; Range: 0.0-0.2; Units: K/mm3; Status: F Test: LARGE UNSTAINED CELL #; Value: 0.1; Range: 0.0-0.4; Units: K/mm3; Status: F Lab Order: Complete Comphrensive Metabolic; SPEC'M 01/08/17 15:16 Test: GLUCOSE, FASTING; Value: 95; Range: 80-110; Units: MG/DL; Status: F Test: BLOOD UREA NITROGEN; Value: 9; Range: 7-18; Units: MG/DL; Status: F Test: CREATININE FOR GFR; Value: 0.68; Range: 0.55-1.02; Units: MG/DL; Status: F Test: GLOMERULAR FILTRATION RATE; Value: > 60.0; Range: >45; Status: F Test: SODIUM LEVEL; Value: 131; Range: 136-145; Abnormal: Below low normal; Units: MEQ/L; Status: F Test: POTASSIUM SERUM; Value: 3.1; Range: 3.5-5.1; Abnormal: Below low normal; Units: MEQ/L; Status: F Test: CHLORIDE LEVEL; Value: 97; Range: 98-107; Abnormal: Below low normal; Units: MEQ/L; Status: F Test: CARBON DIOXIDE LEVEL; Value: 21; Range: 21-32; Units: MEQ/L; Status: F Test: ANION GAP; Value: 13; Range: 8-16; Units: MEQ/L; Status: F Test: CALCIUM LEVEL; Value: 7.9; Range: 8.8-10.2; Abnormal: Below low normal; Units: MG/DL; Status: F Test: AST/SGOT; Value: 39; Range: 15-37; Abnormal: Above high normal; Units: U/L; Status: F Test: ALT/SGPT; Value: 34; Range: 12-78; Units: U/L; Status: F Test: ALKALINE PHOSPHATASE; Value: 167; Range: 45-117; Abnormal: Above high normal; Units: U/L; Status: F Test: BILIRUBIN,TOTAL; Value: 0.7; Range: 0.2-1.0; Units: MG/DL; Status: F Test: TOTAL PROTEIN; Value: 6.4; Range: 6.4-8.2; Units: GM/DL; Status: F Test: ALBUMIN; Value: 2.7; Range: 3.2-5.2; Abnormal: Below low normal; Units: GM/DL; Status: F Test: ALBUMIN/GLOBULIN RATIO; Value: 0.73; Range: 1.00-1.93; Abnormal: Below low normal; Status: F Test Note: ; Units are mL/min/1.73 m2 Chronic Kidney Disease Staging per NKF: Stage I & II GFR >=60 Normal to Mildly Decreased Stage III GFR 30-59 Moderately Decreased Stage IV GFR 15-29 Severely Decreased Stage V GFR <15 Very Little GFR Left ESRD GFR <15 on PIANO REFINISHER Lab Order: Magnesium Level; [facility] 01/08/17 15:16 Test: MAGNESIUM LEVEL; Value: 1.7; Range: 1.8-2.4; Abnormal: Below low normal; Units: MG/DL; Status: F Lab Order: Phosphorous Level; [facility] 01/08/17 15:16 Test: PHOSPHORUS LEVEL; Value: 1.9; Range: 2.5-4.9; Abnormal: Below low normal; Units: MG/DL; Status: F Lab Order: -Arterial Blood Gas; [facility] 01/08/17 15:26 Test: ABG pH (ARTERIAL); Value: 7.507; Range: 7.350-7.450; Abnormal: Above high normal; Units: UNITS; Status: F Test: ABG PARTIAL PRESSURE CO2; Value: 26.0; Range: 35.0-45.0; Abnormal: Below low normal; Units: mmHg; Status: F Test: ABG PARTIAL PRESSURE O2; Value: 87.7; Range: 75.0-100.0; Units: mmHg; Status: F Test: ABG TOTAL CO2; Value: 20.9; Range: 23.0-31.0; Abnormal: Below low normal; Units: MEQ/L; Status: F Test: ABG HCO3; Value: 20.1; Range: 22.0-26.0; Abnormal: Below low normal; Units: MEQ/L; Status: F Test: ABG BASE EXCESS; Value: -1.7; Range: -2.0-2.0; Status: F Test: ABG STANDARD HCO3; Value: 23.0; Range: 22.0-26.0; Units: MEQ/L; Status: F Test: ABG O2 SATURATION; Value: 97.6; Range: 95.0-99.0; Units: %; Status: F Test: ABG DEVICE; Value: NASAL DHARMESH; Status: F Lab Order: Lactic Acid (Alexander tube on ice); SPEC'M 01/08/17 15:16 Test: LACTIC ACID SEPSIS PROTOCOL; Value: 1.1; Range: 0.4-2.0; Units: MMOL/L; Status: F Lab Order: C REACTIVE PROTEIN QUANTITATIV; SPEC'M 01/08/17 15:16 Test: C REACTIVE PROTEIN QUANTITATIV; Value: 5.97; Range: 0.00-0.30; Abnormal: Above high normal; Units: MG/DL; Status: F Lab Order: RESPIRATORY PANEL; SPEC'M 01/08/17 17:26 Test: RESPIRATORY PANEL; Value: RP PANEL RESULT POSITIVE by PCR; Abnormal: Abnormal; Status: F Test: RESPIRATORY PANEL; Value: Comments:; Status: F Test: RESPIRATORY PANEL; Value: ORGANISM 1: INFLUENZA A H3; Status: F Test: RESPIRATORY PANEL; Value: INFLUENZA A H3; Status: F Test: RESPIRATORY PANEL; Value: Influenza H3 1 Influenza causes upper respiratory tract infections; Status: F Test: RESPIRATORY PANEL; Value: Influenza H3 10 Influenza A1H3.; Status: F Test: RESPIRATORY PANEL; Value: Influenza H3 2 with rapid onset of fever. During annual Influenza; Status: F Test: RESPIRATORY PANEL; Value: Influenza H3 3 epidemics, 5-20% of the population is affected.; Status: F Test: RESPIRATORY PANEL; Value: Influenza H3 4 Complications with viral or bacterial pneumonia; Status: F Test: RESPIRATORY PANEL; Value: Influenza H3 5 increase mortality from Influenza infections. There; Status: F Test: RESPIRATORY PANEL; Value: Influenza H3 6 are currently at least four antiviral medications; Status: F Test: RESPIRATORY PANEL; Value: Influenza H3 7 available for Influenza treatment (amantadine,; Status: F Test: RESPIRATORY PANEL; Value: Influenza H3 8 rimantadine, zanamivir and oseltamivir). More severe; Status: F Test: RESPIRATORY PANEL; Value: Influenza H3 9 disease and increased mortality are associated with; Status: F Test Note: ; This respiratory PCR panel detects Influenza A H1, H3 and 2009 H1 viruses, Influenza B virus, Respiratory syncytial virus, Human metapneumovirus, Parainfluenza virus 1, 2, 3 and 4, Adenovirus, Rhinovirus/Enterovirus, Coronavirus HKU1, NL63, OC43 and 229E, Bordetella pertussis, Mycoplasma pneumoniae and Chlamydia pneumoniae. Radiology Order: CT Chest With Contrast Test: CT Chest With Contrast REASON FOR EXAMINATION: Shortness of Breath;Cough; Clinical: Shortness of breath and cough.; ; Technique: Axial contrast enhanced images from the thoracic inlet to the upper; abdomen using 100 ml Isovue 370 intravenous contrast material with coronal and; sagittal re-formations.; ; Findings:; Small left pleural effusion with moderate left lower lobe consolidation along; with smaller right lower lobe consolidation and scattered bilateral infiltrates; is most compatible with multifocal pneumonia and correlation is recommended.; Mild reactive adenopathy is suggested. Minimal atherosclerotic changes to the; thoracic aorta and coronary arteries noted without aortic aneurysm/dissection,; cardiomegaly or pericardial effusion. Tracheobronchial tree is patent. No; pneumothorax. Surrounding musculoskeletal structures demonstrate diffuse; sclerotic changes along with innumerable lytic lesions compatible with metastatic; disease. Asymmetric left axillary lymph nodes are identified.; ; Impression:; 1. Diffuse osseous metastatic disease.; 2. Small left pleural effusion with moderate left lower lobe consolidation and; scattered bilateral infiltrates suggest multifocal pneumonia.; 3. Asymmetric left axillary lymph nodes possibly related to patient's metastatic; disease.; ; ; Signed by; Mik Rolon MD 01/08/2017 04:47 P; Outcome: 17:10 Decision to Hospitalize by Provider. le 18:18 [place] [facility] [place] Discharge Assessment: patient administered narcotics - yes. [place] [facility] [place] or transferred to another facility. 19:42 The following High Risk Discharge criteria are identified: None. [place] [facility] [place] tech, family with patient, via stretcher, with chart. Condition: stable. Property :Personal belongings accompany Pt. 19:53 Patient left the ED. myron Signatures: Dispatcher [employer] EDMS Maryjane Tristan RN RN Tacho Aden RN RN ms2 Teresa Olmos RN RN srm Newman, Jill New, RN RN Mary Razo,RT RT ac1 Fernanda Griffiths km6 Ramona Razo, WORKFORCE ANALYST WORKFORCE ANALYST Sal Silva jh6 Heaven Arreguin gr2 June Chung mm15 Beth Marks Corrections: (The following items were deleted from the chart) 16:16 16:08 BP 134 / 69 Auto; ms2 ms2 Chart Complete MTDD
--- NOTE | 2017-01-10 20:54 | EDDOCDS ---
Physician Documentation [facility] Name: Katlin Cates Age: 66 yrs Sex: Female : 1950 Arrival Date: 01/08/2017 Time: 14:02 Bed 19 Private MD: Arturo Welch MD Disposition: 01/08/17 17:10 Hospitalization ordered by Bere Mead for Inpatient Admission. Preliminary diagnosis is Lobar pneumonia, unspecified organism. - Bed requested for 5 Garcia. - Status is Inpatient Admission. myron - Condition is Stable. - Problem is new. - Symptoms are unchanged. Historical: - Allergies: Flagyl; SULFA (SULFONAMIDES); - Home Meds: 1. Tylenol 325 mg Oral tab 2 tabs every 4 hours (Last dose: 01/08/2017 10:00) 2. hydrocodone-acetaminophen 7.5-325 mg oral tab every 4 hours (Last dose: 01/07/2017) 3. amlodipine 10 mg Oral tab 1 tab once daily (Last dose: 01/08/2017 10:00) 4. cefdinir 300 mg Oral cap 1 cap every 12 hours for uti (Last dose: 01/08/2017 10:00) 5. citric acid/sodium citrate 334-500mg/5ml twice a day (Last dose: 01/08/2017 10:00) 6. hydralazine 25 mg Oral tab every 8 hours (Last dose: 01/08/2017 09:00) 7. Lidoderm 4% cream Topical once daily prn 8. losartan 25 mg oral tab 1 tab once daily (Last dose: 01/08/2017 10:00) 9. magnesium chloride 64mg daily (Last dose: 01/08/2017 10:00) 10. potassium phospate 500 mg twice a day (Last dose: 01/08/2017 10:00) 11. aspirin 81 mg Oral tab 1 tab once daily (Last dose: 01/08/2017 10:00) 12. atenolol 100 mg Oral tab 1 tab twice a day (Last dose: 01/08/2017 10:00) 13. Strattera 60 mg oral cap 1 cap nightly (Last dose: 01/07/2017) 14. Zetia 10 mg Oral tab 1 tab once daily (Last dose: 01/07/2017) 15. Fish Oil 1,000 mg oral cap three times a day (Last dose: 01/08/2017 10:00) 16. gabapentin 300 mg Oral tab nightly (Last dose: 01/07/2017) 17. fluoxetine 40 mg Oral cap 1 cap once daily (Last dose: 01/08/2017 10:00) 18. hydroxyzine HCl 50 mg Oral tab 1 tab three times a day as needed 19. simvastatin 20 mg Oral tab 1 tab nightly (Last dose: 01/07/2017) - PMHx: ADHD; Anxiety; Depression; Hypercholesterolemia; Hypertension; Fibromyalgia; - PSHx: Hysterectomy; Appendectomy; Tubal ligation; - Social history: Smoking status: Patient states former smoker of tobacco. No barriers to communication noted, The patient speaks fluent Kiswahili, Speaks appropriately for age. - Family history: Not pertinent. - : Unable to assess if pt is on anticoagulants. The pt / caregiver states he / she is not on anticoagulants. Home medication list is obtained from the patient. - Exposure Risk Screening:: None identified. Vital Signs: 01/08 14:04 BP 137 / 76; Pulse 81; Resp 18 S; Temp 96.4(T); Pulse Ox 95% on R/A; Weight 86.18 kg / gr2 189.99 lbs (R); Height 5 ft. 5 in. (165.10 cm) (R); Pain 5/10; 16:08 BP 134 / 69 (auto/); Pulse 80; Resp 20 S; Pulse Ox 93% on R/A; ms2 16:47 BP 135 / 64 (auto/); ms2 16:48 Pulse 72 MON; Pulse Ox 92% ; ms2 16:50 Pulse 74 MON; Resp 20 S; Pulse Ox 94% ; ms2 16:52 BP 134 / 64; Pulse 73; Resp 20 S; Pulse Ox 93% on R/A; ms2 19:18 BP 112 / 63; Pulse 78; Resp 20 S; Pulse Ox 94% on R/A; ms2 19:40 Temp 97(O); ms2 14:04 Body Mass Index 31.62 (86.18 kg, 165.10 cm) gr2 MDM: 14:52 Financial registration complete. mm15 14:57 [facility] Payment Agreement was scanned into [employer] and attached to record. mm15 15:05 IV Saline Lock ordered. le 15:05 Albuterol-Ipratropium 3 ml Inhalation once ordered. le 15:05 Call Respiratory ordered. le 15:06 CBC with Diff Ordered. EDMS 15:06 Complete Comphrensive Metabolic Ordered. EDMS 15:06 Magnesium Level Ordered. EDMS 15:06 Phosphorous Level Ordered. EDMS 15:08 Call Respiratory complete. deg 15:15 Call Respiratory ordered. le 15:15 -Blood Culture (Adults Only), peripheral from different site, or from device/port/PICC le etc. if present ordered. 15:15 Piperacillin-Tazobactam 3.375 grams IVPB once over 30 mins; dilute in 50mL of NS or D5W le ordered. 15:15 azithromycin 500 mg IVPB once over 1 hrs; dilute in 250mL of D5W or NS ordered. le 15:15 vancomycin (loading dose for pt. wt. >= 80kg) 2000 mg IVPB once ordered. le 15:16 -Arterial Blood Gas Ordered. EDMS 15:16 -Blood Culture Ordered. EDMS 15:16 Lactic Acid (Alexander tube on ice) Ordered. EDMS 15:20 C REACTIVE PROTEIN QUANTITATIV Ordered. EDMS 15:22 -Blood Culture (Adults Only), peripheral from different site, or from device/port/PICC deg etc. if present complete. 15:23 Call Respiratory complete. deg 15:23 BLOOD CULTURES Ordered. EDMS 15:25 HYDROcodone-acetaminophen 5 mg-325 mg 1 tabs PO once ordered. le 15:31 Misc Advertising Manager Order ordered. le 15:33 Misc Advertising Manager Order complete. deg 15:34 RESPIRATORY PANEL Ordered. EDMS 15:45 BED REQUEST+ADM ordered. EDMS 16:18 C REACTIVE PROTEIN QUANTITATIV Reviewed. le 16:18 CBC with Diff Reviewed. le 16:18 Complete Comphrensive Metabolic Reviewed. le 16:18 Magnesium Level Reviewed. le 16:18 Phosphorous Level Reviewed. le 16:18 -Arterial Blood Gas Reviewed. le 16:18 Lactic Acid (Alexander tube on ice) Reviewed. le 16:20 Potassium Chloride Packet 40 mEq PO once ordered. le 16:20 Magnesium Oxide 400 mg PO once ordered. le 16:25 CT Chest With Contrast Ordered. EDMS 16:55 hydrALAZINE 25 mg PO once ordered. le 17:39 Admission / Observation Status ordered. EDMS 17:39 REGULAR DIET ordered. EDMS 19:13 Albuterol 2.5 mg Nebulizer once ordered. ms2 19:23 2 GRAM SODIUM DIET ordered. EDMS 19:32 COMPLETE BLOOD COUNT Ordered. EDMS 19:32 BASIC METABOLIC PROFILE Ordered. EDMS 01/09 20:57 T-Sheet-- Draft Copy was scanned into [employer] and attached to record. klr Administered Medications: 01/08 15:09 Drug: Albuterol-Ipratropium 3 ml [ipratropium-albuterol 0.5 mg-3 mg(2.5 mg base)/3 mL ac1 nebulization soln (3 mL)] Route: Inhalation; 15:14 Follow up: BS WHZ BILAT BEFORE AND AFTER TX ac1 15:53 Drug: Piperacillin-Tazobactam 3.375 grams [piperacillin-tazobactam 3.375 gram ms2 intravenous solution] Route: IVPB; Infused Over: 30 mins; Site: left wrist; 15:54 Drug: HYDROcodone-acetaminophen 1 tabs [hydrocodone 5 mg-acetaminophen 325 mg tablet (1 ms2 tabs)] Route: PO; 16:49 Drug: vancomycin (loading dose for pt. wt. >= 80kg) 2000 mg Route: IVPB; Site: left ms2 forearm; 17:24 Drug: hydrALAZINE 25 mg [hydralazine 25 mg tablet (1 tabs)] Route: PO; ms2 17:25 Drug: Potassium Chloride 40 mEq [potassium chloride 20 mEq oral packet (2 packets)] ms2 Route: PO; 17:25 Drug: Magnesium Oxide 400 mg [magnesium oxide 400 mg tablet (1 tabs)] Route: PO; ms2 18:55 Drug: azithromycin 500 mg [azithromycin 500 mg intravenous solution] Route: IVPB; ms2 Infused Over: 1 hrs; Site: left forearm; 19:23 Drug: Albuterol 2.5 mg [albuterol sulfate 2.5 mg/0.5 mL solution for nebulization (0.5 jh6 mL)] Route: Nebulizer; Signatures: Dispatcher [employer] EDMS Enid Kiser, Visiting Housekeeper Unit Tacho Krishnamurthy RN RN ms2 Teresa Olmos RN RN srm Newman, Jill New, RN RN jan Westcott, Lisa, DISH STACKER June Berger mm15 Beth Marks r Raul Sanabria RN RN sa Cowles, Amy RT ac1 Sal Barlow jh6 The chart was reviewed and I authenticate all verbal orders and agree with the evaluation and treatment provided.Corrections: (The following items were deleted from the chart) 15:11 15:06 D-DIMER QUANT+LAB ordered. EDMS EDMS 15:20 15:16 C REACTIVE PROTEIN QUANTITATIV+LAB ordered. EDMS EDMS 16:24 15:06 Chest, 2 view (PA\E\Lat)+XR ordered. EDMS EDMS Attachments: 14:57 [facility] Payment Agreement mm15 01/09 20:57 T-Sheet-- Draft Copy klr Chart Complete MTDD
[2017-01-10 22:00] VITALS: BP 164/93
[2017-01-11] MEDS: PIPERACILLIN/TAZOBACTAM SOD 4.5 GM in D5W MINI-BAG PLUS 50 ML IV SCH ×4 (03:51→21:36)
[2017-01-11] MEDS: IPRATROPIUM 0.5MG/ALBUTEROL 2.5MG INH SOL UD 3ML (DUONEB)(J7620) NEB SCH ×6 (04:00→19:35)
[2017-01-11 06:00] VITALS: BP 142/68
[2017-01-11] MEDS: BUDESONIDE 0.5 MG/2 ML INHALATION SUSPENSION INH SCH ×2 (06:05→19:35)
[2017-01-11 06:18] LABS: MEAN CORPUSCULAR HGB CONC 34.1 g/dl (32.0-36.5); MEAN CORPUSCULAR VOLUME 85.1 fl (80.0-96.0); RED CELL DISTRIBUTION WIDTH 14.5 % (11.5-14.5); WHITE BLOOD COUNT 15.8 K/mm3 (4.0-10.0)
[2017-01-11 06:27] LABS: CALCIUM LEVEL 8.4 MG/DL (8.8-10.2); CARBON DIOXIDE LEVEL 20 MEQ/L (21-32); CHLORIDE LEVEL 105 MEQ/L (98-107); GLOMERULAR FILTRATION RATE > 60.0 (>45); GLUCOSE, FASTING 77 MG/DL (80-110); MAGNESIUM LEVEL 1.7 MG/DL (1.8-2.4); PHOSPHORUS LEVEL 2.6 MG/DL (2.5-4.9)
[2017-01-11 06:36] LABS: ANION GAP 11 MEQ/L (8-16); SODIUM LEVEL 136 MEQ/L (136-145)
[2017-01-11 06:38] LABS: BLOOD UREA NITROGEN 7 MG/DL (7-18); POTASSIUM SERUM 3.9 MEQ/L (3.5-5.1)
[2017-01-11] MEDS ORDERED: MAG SULF 1GM/100ML (MAG RUN) 1 GM in APPROPRIATE DILUENT 1 EA IV ONE (08:15)
[2017-01-11] MEDS: SODIUM BICARBONATE 325 MG TAB PO SCH ×2 (09:29→20:17)
[2017-01-11] MEDS: MAGNESIUM CHLORIDE 64 MG TABCR (SLO MAG) PO SCH (09:29)
[2017-01-11] MEDS: guaiFENesin ER 600 MG TAB PO SCH ×2 (09:29→20:18)
[2017-01-11] MEDS: SENOKOT S TAB PO SCH ×2 (09:29→20:18)
[2017-01-11] MEDS: FLUoxetine 20 MG CAP PO SCH (09:30)
[2017-01-11] MEDS: OSELTAMIVIR PHOSPHATE 75 MG CAP (TAMIFLU) PO SCH ×2 (09:30→20:17)
[2017-01-11] MEDS: predniSONE 10 MG TAB PO SCH (09:30)
[2017-01-11] MEDS: ENOXAPARIN 40 MG/0.4 ML SYRINGE (J1650) SC SCH (09:32)
[2017-01-11] MEDS: K-PHOS ORIGINAL (POT.ACID PHOSPHATE) 500MG TAB PO SCH ×2 (09:32→20:16)
[2017-01-11] MEDS: OMEGA-3 1050MG CAPSULE PO SCH ×3 (09:33→20:17)
[2017-01-11] MEDS: ATENOLOL 50 MG TAB PO SCH ×2 (09:33→20:17)
[2017-01-11] MEDS: LOSARTAN 25 MG TAB PO SCH (09:33)
[2017-01-11] MEDS: amLODIPine 10 MG TAB PO SCH (09:34)
[2017-01-11] MEDS: **hydrALAZINE HCL** 25 MG TAB PO SCH ×3 (09:34→20:18)
--- NOTE | 2017-01-11 11:19 | IPNPDOC ---
Text Note Date of Service The patient was seen on 01/11/17. NOTE Subjective: Still has a productive cough. + SOB. No CP/Palpitations. Objective: Vitals: (see below) General: No acute distress, laying comfortably in bed. HEENT: Moist mucous membranes. Neck: No JVD or lymphadenopathy Cardiac: RRR, No murmurs Pulm: Clear to auscultation b/l. No wheezing, rhonchi Abd: NT/ND + BS Ext: No edema or cyanosis Labs (see below) Images: CT Chest 01/08/17 Findings: Small left pleural effusion with moderate left lower lobe consolidation along with smaller right lower lobe consolidation and scattered bilateral infiltrates is most compatible with multifocal pneumonia and correlation is recommended. Mild reactive adenopathy is suggested. Minimal atherosclerotic changes to the thoracic aorta and coronary arteries noted without aortic aneurysm/dissection, cardiomegaly or pericardial effusion. Tracheobronchial tree is patent. No pneumothorax. Surrounding musculoskeletal structures demonstrate diffuse sclerotic changes along with innumerable lytic lesions compatible with metastatic disease. Asymmetric left axillary lymph nodes are identified. Impression: 1. Diffuse osseous metastatic disease. 2. Small left pleural effusion with moderate left lower lobe consolidation and scattered bilateral infiltrates suggest multifocal pneumonia. 3. Asymmetric left axillary lymph nodes possibly related to patient's metastatic disease. Assessment/Plan 1. HCAP - recent admit for severe hypercalcemia. On Vanc/Zosyn pending cultures. Nebs q4h. Cont Mucinex, Incentive spirometer. 2. 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 Will need outpt heme/onc followup. 3. HTN - controlled - cont home meds 4. HLD - cont home meds 5. Depression/anxiety - cont home meds 6. Fibromyalgia. 7. Hypokalemia/hypophosphatemia/hypomagnesemia - replaced DVT prophy: Lovenox SQ VS,Fishbone, I+O VS, Fishbone, I+O Laboratory Tests 01/11/17 05:57 Calcium Level 8.4 L, Red Blood Count 3.67 L, Mean Corpuscular Volume 85.1, Mean Corpuscular Hemoglobin 29.0, Mean Corpuscular Hemoglobin Concent 34.1, Red Cell Distribution Width 14.5 Vital Signs Date Time Temp Pulse Resp B/P Pulse Ox O2 Delivery O2 Flow Rate FiO2 01/11/17 10:47 Room Air 01/11/17 09:33 165/80 01/11/17 09:33 91 01/11/17 06:00 99.0 20 95 I&O- Last 24 Hours up to 6 AM 01/11/17 06:00 Intake Total 1140 ml Output Total 0 ml Balance 1140 ml ROBLES TENORIO MD Jan 11, 2017 11:19
[2017-01-11] MEDS: VANCOMYCIN HCL 1,000 MG, VIAL MATE ADAPTER 1 EACH in D5W 250 ML IV SCH ×2 (12:00→22:46)
[2017-01-11 14:00] VITALS: BP 167/60
[2017-01-11] MEDS: GABAPENTIN 300 MG CAP PO SCH (20:17)
[2017-01-11] MEDS: SIMVASTATIN 20 MG TAB PO SCH (20:17)
[2017-01-11] MEDS: EZETIMIBE 10 MG TAB (ZETIA) PO SCH (20:17)
[2017-01-11 22:00] VITALS: BP 144/78
[2017-01-12] MEDS: PIPERACILLIN/TAZOBACTAM SOD 4.5 GM in D5W MINI-BAG PLUS 50 ML IV SCH ×4 (03:37→23:02)
[2017-01-12] MEDS: IPRATROPIUM 0.5MG/ALBUTEROL 2.5MG INH SOL UD 3ML (DUONEB)(J7620) NEB SCH ×6 (04:00→20:44)
[2017-01-12 06:00] VITALS: BP 167/83
[2017-01-12 07:03] LABS: MEAN CORPUSCULAR HEMOGLOBIN 27.5 pg (27.0-33.0); MEAN CORPUSCULAR HGB CONC 33.1 g/dl (32.0-36.5); MEAN CORPUSCULAR VOLUME 83.1 fl (80.0-96.0); RED CELL DISTRIBUTION WIDTH 14.4 % (11.5-14.5); WHITE BLOOD COUNT 13.9 K/mm3 (4.0-10.0)
[2017-01-12 07:16] LABS: ANION GAP 12 MEQ/L (8-16); BLOOD UREA NITROGEN 7 MG/DL (7-18); CARBON DIOXIDE LEVEL 21 MEQ/L (21-32); CHLORIDE LEVEL 106 MEQ/L (98-107); CREATININE FOR GFR 0.67 MG/DL (0.55-1.02); GLOMERULAR FILTRATION RATE > 60.0 (>45); GLUCOSE, FASTING 83 MG/DL (80-110); PHOSPHORUS LEVEL 3.6 MG/DL (2.5-4.9); POTASSIUM SERUM 3.5 MEQ/L (3.5-5.1); SODIUM LEVEL 139 MEQ/L (136-145)
[2017-01-12] MEDS: BUDESONIDE 0.5 MG/2 ML INHALATION SUSPENSION INH SCH ×2 (07:17→20:44)
[2017-01-12] MEDS: **hydrALAZINE HCL** 25 MG TAB PO SCH ×3 (08:59→22:42)
[2017-01-12] MEDS: K-PHOS ORIGINAL (POT.ACID PHOSPHATE) 500MG TAB PO SCH ×2 (09:00→22:40)
[2017-01-12] MEDS: predniSONE 10 MG TAB PO SCH (09:01)
[2017-01-12] MEDS: LOSARTAN 25 MG TAB PO SCH (09:01)
[2017-01-12] MEDS: ATENOLOL 50 MG TAB PO SCH ×2 (09:02→22:43)
[2017-01-12] MEDS: FLUoxetine 20 MG CAP PO SCH (09:03)
[2017-01-12] MEDS: OSELTAMIVIR PHOSPHATE 75 MG CAP (TAMIFLU) PO SCH ×2 (09:03→23:00)
[2017-01-12] MEDS: ASPIRIN 81 MG ENTERIC TAB PO SCH (09:03)
[2017-01-12] MEDS: amLODIPine 10 MG TAB PO SCH (09:03)
[2017-01-12] MEDS: SENOKOT S TAB PO SCH ×2 (09:03→22:40)
[2017-01-12] MEDS: OMEGA-3 1050MG CAPSULE PO SCH ×3 (09:04→22:40)
[2017-01-12] MEDS: guaiFENesin ER 600 MG TAB PO SCH ×2 (09:04→22:44)
[2017-01-12] MEDS: MAGNESIUM CHLORIDE 64 MG TABCR (SLO MAG) PO SCH (09:05)
[2017-01-12] MEDS: SODIUM BICARBONATE 325 MG TAB PO SCH ×2 (09:05→23:01)
[2017-01-12] MEDS: ENOXAPARIN 40 MG/0.4 ML SYRINGE (J1650) SC SCH (09:05)
--- NOTE | 2017-01-12 10:23 | IPNPDOC ---
Text Note Date of Service The patient was seen on 01/12/17. NOTE Subjective: Patient is a 66-year-old female with influenza, hospital-acquired pneumonia. She says she is doing a lot better. She is complaining of a little bit of chest congestion overnight. She denies any fevers, chills, sweats, chest pain/pressure , shortness breath or difficulty breathing, abdominal pain, nausea, vomiting, diarrhea or constipation. Objective: Vital signs: Temperature 99.7, MAXIMUM TEMPERATURE 99.7, pulse 94, respiratory rate 20, blood pressure 158/64, pulse ox 94% on room air Gen.: Patient awake, alert and oriented, verbal and able to answer questions appropriately. Patient does not appear to be in any acute distress Heart: Regular rate and rhythm, normal S1-S2. No murmurs, rubs, clicks or gallops Lungs: Bilateral wheezes with left-sided rhonchi Abdomen: Active bowel sounds, soft, nontender, no masses to palpation Extremities: No swelling in either lower extremity Laboratory data: CBC: White blood cells 13.9, hemoglobin and hematocrit 10.1/30.4, platelets 337 Chemistry: Sodium 139, potassium 3.5, chloride 106, Carbon dioxide 21, BUN 7, creatinine 0.67, glucose 83, calcium 8.0, phosphorus 3.6, magnesium 2.0 Microbiology: Sputum culture: Yeastlike organism Assessment: Patient is 66-year-old female with cancer of unknown primary, currently being treated for influenza, possible hospital-acquired pneumonia. The patient continues to improve daily. Plan: #1: Hospital-acquired pneumonia: Patient will continue Zosyn 4.5 g IV every 6 hours, vancomycin 1 g every 12 hours, Tylenol 650 mill grams by mouth every 4 hours when necessary, albuterol sulfate 2.5 mg nebulizer every 2 hours when necessary, DuoNeb 3 mL's every 4 hours, Pulmicort 0.5 mg inhalation as a day #2: Stable, continue also Temovate or 75 mg by mouth twice a day #3: Cancer of unknown primary: Patient with bony metastasis. Patient will need outpatient follow-up. Continue Tylenol 650 mg by mouth every 4 hours when necessary, [place] 7.5/325 mg one tablet by mouth every 4 hours when necessary #4: Hypertension: Stable, continue current medications #5: Dyslipidemia: Stable, continue current medications #6: Depression and anxiety: Stable, continue current medications #7: Fibromyalgia: Stable, continue current medications #8: DVT prophylaxis, continue Lovenox 40 mg subcutaneously daily Disposition: Anticipate discharge within next 24 hours. My preceptor for this patient encounter was physically present in the building during the encounter and was fully available. As needed, all aspects of the patient interview, examination, medical decision making process, and medical care plan development were reviewed and approved by the preceptor. Preceptor is aware and concurs with the plan as stated in the body of this note and will attest to such by his/her cosignature Hernandez AMADOR, I+O VSHernandez I+O Laboratory Tests 01/12/17 06:43 Calcium Level 8.0 L, Red Blood Count 3.65 L, Mean Corpuscular Volume 83.1, Mean Corpuscular Hemoglobin 27.5, Mean Corpuscular Hemoglobin Concent 33.1, Red Cell Distribution Width 14.4 Vital Signs Date Time Temp Pulse Resp B/P Pulse Ox O2 Delivery O2 Flow Rate FiO2 01/12/17 09:03 158/64 01/12/17 09:02 94 01/12/17 06:00 99.7 20 94 Room Air I&O- Last 24 Hours up to 6 AM 01/12/17 06:00 Intake Total 1450 ml Balance 1450 ml JAMARCUS FERNANDO DO Jan 12, 2017 10:23
[2017-01-12] MEDS: VANCOMYCIN HCL 1,000 MG, VIAL MATE ADAPTER 1 EACH in D5W 250 ML IV SCH ×2 (10:55→23:52)
[2017-01-12 14:00] VITALS: BP 146/77
[2017-01-12 22:00] VITALS: BP 163/84
[2017-01-12] MEDS: ACETAMINOPHEN TAB 650MG DOSE (2X325MG) PO PRN (22:39)
[2017-01-12] MEDS: SIMVASTATIN 20 MG TAB PO SCH (22:39)
[2017-01-12] MEDS: GABAPENTIN 300 MG CAP PO SCH (22:40)
[2017-01-12] MEDS: EZETIMIBE 10 MG TAB (ZETIA) PO SCH (22:43)
[2017-01-13] MEDS: IPRATROPIUM 0.5MG/ALBUTEROL 2.5MG INH SOL UD 3ML (DUONEB)(J7620) NEB SCH ×4 (04:00→11:10)
[2017-01-13] MEDS: PIPERACILLIN/TAZOBACTAM SOD 4.5 GM in D5W MINI-BAG PLUS 50 ML IV SCH ×2 (04:48→10:52)
[2017-01-13 06:00] VITALS: BP 161/92
[2017-01-13] MEDS: BUDESONIDE 0.5 MG/2 ML INHALATION SUSPENSION INH SCH (07:13)
[2017-01-13 07:16] LABS: MEAN CORPUSCULAR HEMOGLOBIN 27.8 pg (27.0-33.0); MEAN CORPUSCULAR HGB CONC 33.5 g/dl (32.0-36.5); MEAN CORPUSCULAR VOLUME 82.7 fl (80.0-96.0); RED CELL DISTRIBUTION WIDTH 14.3 % (11.5-14.5); WHITE BLOOD COUNT 13.3 K/mm3 (4.0-10.0)
[2017-01-13 07:34] LABS: ANION GAP 12 MEQ/L (8-16); BLOOD UREA NITROGEN 10 MG/DL (7-18); CALCIUM LEVEL 8.4 MG/DL (8.8-10.2); CARBON DIOXIDE LEVEL 21 MEQ/L (21-32); CHLORIDE LEVEL 106 MEQ/L (98-107); CREATININE FOR GFR 0.76 MG/DL (0.55-1.02); GLOMERULAR FILTRATION RATE > 60.0 (>45); GLUCOSE, FASTING 78 MG/DL (80-110); MAGNESIUM LEVEL 1.9 MG/DL (1.8-2.4); PHOSPHORUS LEVEL 3.4 MG/DL (2.5-4.9); POTASSIUM SERUM 3.1 MEQ/L (3.5-5.1); SODIUM LEVEL 139 MEQ/L (136-145)
[2017-01-13 09:00] VITALS: BP 166/83
--- NOTE | 2017-01-13 11:07 | IPNPDOC ---
Text Note Date of Service The patient was seen on 01/13/17. NOTE Subjective: Patient is a 66-year-old female with acute influenza, hospital-acquired pneumonia, cancer of unknown primary with bony metastasis, seen for hospitalist follow up. Patient reports that she is feeling great today. She denies any fevers, chills, sweats, chest pain/pressure, shortness of breath, difficulty breathing, abdominal pain, nausea, vomiting, diarrhea, constipation. Objective: Vital signs: Temperature 99.8, MAXIMUM TEMPERATURE 99.8, pulse 82, respiratory rate 16, blood pressure 161/92, pulse ox 92% on room air Gen.: Patient awake, alert and oriented, verbal and able to answer questions appropriately. Patient does not appear to be in any acute distress Heart: Regular rate and rhythm, normal S1-S2. No murmurs, rubs, clicks or gallops Lungs: Clear to auscultation bilaterally. No wheezes, rales or rhonchi Abdomen: Active bowel sounds, soft, nontender, no masses to palpation Extremities: No swelling in either lower extremity Laboratory data: CBC: White blood cells 13.3, hemoglobin and hematocrit 10.4/31.0, platelets 377 Chemistry: Sodium 139, potassium 3.1, chloride 106, Carbon dioxide 21, BUN 10, creatinine 0.76, glucose 78, calcium 8.4 Phosphorus 3.4 Magnesium 1.9 C-reactive protein 4.01 Assessment: Patient is a 66-year-old female with cancer of unknown primary, currently being treated for influenza, hospital-acquired pneumonia. Patient continues to improve daily. Plan: #1: Hospital-acquired pneumonia: Continue Zosyn 4.5 g IV every 6 hours, vancomycin 1 g IV every 12 hours, Tylenol 650 mg by mouth every 4 hours when necessary, albuterol sulfate 2.5 mg inhalation every 2 hours when necessary, DuoNeb a 3 mL every 4 hours, Pulmicort 0.5 mg inhalation twice daily #2: Acute influenza: Continue Tamiflu 75 mg by mouth twice a day #3: Hypokalemia: Patient currently getting potassium replacement, order placed for one-time 40 meq by mouth KCl #3: Cancer of unknown primary: Patient with bony metastasis. Patient will need outpatient follow-up. Continue Tylenol 650 mill grams by mouth every 4 hours when necessary, [place] 7.5/325 mg one tablet by mouth every 4 hours when necessary #4: Hypertension: Stable, continue current medications #5: Dyslipidemia: Stable, continue current medications #6: Depression and anxiety: Stable, continue current medications #7: Fibromyalgia: Stable, continue current medications #8: DVT prophylaxis: Continue Lovenox 40 mg subcutaneously daily Disposition: Anticipate discharge within next 24 hours My preceptor for this patient encounter was physically present in the building during the encounter and was fully available. As needed, all aspects of the patient interview, examination, medical decision making process, and medical care plan development were reviewed and approved by the preceptor. Preceptor is aware and concurs with the plan as stated in the body of this note and will attest to such by his/her cosignature Hernandez AMADOR, I+O VSHernandez, I+O Laboratory Tests 01/13/17 07:00 Calcium Level 8.4 L, Red Blood Count 3.74 L, Mean Corpuscular Volume 82.7, Mean Corpuscular Hemoglobin 27.8, Mean Corpuscular Hemoglobin Concent 33.5, Red Cell Distribution Width 14.3 Vital Signs Date Time Temp Pulse Resp B/P Pulse Ox O2 Delivery O2 Flow Rate FiO2 01/13/17 10:40 Room Air 01/13/17 06:00 99.8 82 16 161/92 92 I&O- Last 24 Hours up to 6 AM 01/13/17 06:00 Intake Total 1030 ml Balance 1030 ml JAMARCUS FERNANDO DO Jan 13, 2017 11:07
[2017-01-13] MEDS: SODIUM BICARBONATE 325 MG TAB PO SCH (11:57)
[2017-01-13] MEDS: SENOKOT S TAB PO SCH (11:57)
[2017-01-13] MEDS: OSELTAMIVIR PHOSPHATE 75 MG CAP (TAMIFLU) PO SCH (11:59)
[2017-01-13] MEDS: predniSONE 10 MG TAB PO SCH (11:59)
[2017-01-13] MEDS: guaiFENesin ER 600 MG TAB PO SCH (11:59)
[2017-01-13] MEDS ORDERED: POTASSIUM CHLORIDE 10 MEQ SR TABLET PO ONE (12:00)
[2017-01-13] MEDS: amLODIPine 10 MG TAB PO SCH (12:01)
[2017-01-13 12:03] VITALS: BP 166/83
[2017-01-13] MEDS: ATENOLOL 50 MG TAB PO SCH (12:03)
[2017-01-13] MEDS: K-PHOS ORIGINAL (POT.ACID PHOSPHATE) 500MG TAB PO SCH (12:03)
[2017-01-13] MEDS: LOSARTAN 25 MG TAB PO SCH (12:04)
[2017-01-13] MEDS: OMEGA-3 1050MG CAPSULE PO SCH (12:04)
[2017-01-13] MEDS: FLUoxetine 20 MG CAP PO SCH (12:05)
[2017-01-13] MEDS: **hydrALAZINE HCL** 25 MG TAB PO SCH (12:05)
[2017-01-13] MEDS: MAGNESIUM CHLORIDE 64 MG TABCR (SLO MAG) PO SCH (12:07)
[2017-01-13] MEDS: ENOXAPARIN 40 MG/0.4 ML SYRINGE (J1650) SC SCH (12:08)
[2017-01-13] MEDS ORDERED: LEVA750T PO (13:18)
[2017-01-13] MEDS ORDERED: MUCI600T34 PO (13:18)
--- NOTE | 2017-01-13 18:25 | DS.PDOC ---
Discharge Summary General Date of Admission Jan 08, 2017 at 17:35 Date of Discharge Jan 13, 2017 at 14:40 Discharge Summary Consults: None Discharge diagnosis: Acute influenza, hospital-acquired pneumonia Secondary diagnosis: Hypokalemia, cancer of unknown primary, hypertension, dyslipidemia, depression and anxiety, fibromyalgia Hospital course: Patient was admitted on 01/08/17 with a three-day history of cough, wheezing and presenting to urgent care and having a abnormal chest x-ray. Patient had CT on admission which showed pneumonia. Patient was admitted and started on Zosyn, vancomycin. Patient had a respiratory panel which came back positive for influenza, patient was started on Tamiflu. Patient responded well to treatment throughout hospitalization and patient's hospitalization was uncomplicated. Progress note on date of discharge: Subjective: Patient is a 66-year-old female with acute influenza, hospital-acquired pneumonia, cancer of unknown primary with bony metastasis, seen for hospitalist follow up. Patient reports that she is feeling great today. She denies any fevers, chills, sweats, chest pain/pressure, shortness of breath, difficulty breathing, abdominal pain, nausea, vomiting, diarrhea, constipation. Objective: Vital signs: Temperature 99.8, MAXIMUM TEMPERATURE 99.8, pulse 82, respiratory rate 16, blood pressure 161/92, pulse ox 92% on room air Gen.: Patient awake, alert and oriented, verbal and able to answer questions appropriately. Patient does not appear to be in any acute distress Heart: Regular rate and rhythm, normal S1-S2. No murmurs, rubs, clicks or gallops Lungs: Clear to auscultation bilaterally. No wheezes, rales or rhonchi Abdomen: Active bowel sounds, soft, nontender, no masses to palpation Extremities: No swelling in either lower extremity Laboratory data: CBC: White blood cells 13.3, hemoglobin and hematocrit 10.4/31.0, platelets 377 Chemistry: Sodium 139, potassium 3.1, chloride 106, Carbon dioxide 21, BUN 10, creatinine 0.76, glucose 78, calcium 8.4 Phosphorus 3.4 Magnesium 1.9 C-reactive protein 4.01 Assessment: Patient is a 66-year-old female with cancer of unknown primary, currently being treated for influenza, hospital-acquired pneumonia. Patient continues to improve daily. Disposition: Discharge patient to home Follow-up: Dr. Moeller on 01/14/17 at 8:15, Dr. Shaw on 01/16/17 at 2:20 PM, Dr. Love Welch on at 11 AM Activity: As tolerated Diet: As tolerated Medications on discharge: Guaifenesin 600 mg by mouth twice a day Levaquin 750 mg by mouth daily 2 days Tylenol 650 mg by mouth every 4 hours when necessary for pain and Hydrocodone/acetaminophen 7.5/325 mg 1 tablet by mouth every 4 hours when necessary for pain Amlodipine 10 mg by mouth daily Aspirin 81 mg by mouth every 2 days Atenolol 100 mg by mouth twice a day Strattera 60 mg by mouth daily Zetia 10 mg by mouth daily at bedtime Fish oil 1000 milligrams by mouth 3 times a day Fluoxetine 40 mg by mouth daily Gabapentin 300 mg by mouth daily at bedtime Hydralazine 25 mg by mouth 3 times a day Hydroxyzine 50 mg by mouth 3 times a day when necessary for anxiety Lidocaine 4% cream one dose topically daily as needed for neck and back pain Losartan 25 mg by mouth daily Magnesium chloride 64 mg by mouth daily Potassium phosphate 1000 mg by mouth twice a day Simvastatin 20 mg by mouth daily at bedtime Sodium bicarbonate 162.5 mg by mouth twice a day Cc: Dr. Moeller, Dr. Shaw, Dr. Love Welch Time spent on discharge: Greater than 30 minutes Medications Scheduled Amlodipine Besylate (Amlodipine Besylate) 10 Mg Tab 10 MG PO DAILY (Reported) Aspirin (Aspirin 81) 81 Mg Tab 81 MG PO Q2D (Reported) Atenolol (Atenolol) 100 Mg Tab 100 MG PO BID (Reported) Atomoxetine Hydrochloride (Strattera) 60 Mg Cap 60 MG PO DAILY (Reported) Ezetimibe (Zetia) 10 Mg Tab 10 MG PO QHS (Reported) Fish Oil (Fish Oil) 1,000 Mg Cap 1,000 MG PO TID (Reported) Fluoxetine Hcl (Fluoxetine HCl) 40 Mg Cap 40 MG PO DAILY (Reported) Gabapentin (Gabapentin) 300 Mg Cap 300 MG PO QHS (Reported) Guaifenesin (Mucinex) 600 Mg Tab 600 MG PO BID Hydralazine HCl (Hydralazine HCl) 25 Mg Tab 25 MG PO TID (Reported) Levofloxacin Hemihydrate (Levaquin) 750 Mg Tab 750 MG PO DAILY Losartan Potassium (Losartan Potassium) 25 Mg Tab 25 MG PO DAILY (Reported) Magnesium Chloride (Mag64) 64 Mg Tabcr 64 MG PO DAILY (Reported) Potassium Phosphate Monobasic (K-Phos) 500 Mg Tab 1,000 MG PO BID (Reported) Simvastatin (Simvastatin) 20 Mg Tab 20 MG PO QHS (Reported) Sodium Bicarbonate (Sodium Bicarbonate) 325 Mg Tab 162.5 MG PO BID (Reported) Scheduled PRN (Lidocaine) 4 % Cre 1 DOSE TOP DAILY PRN PRN PAIN (Reported) APPLY TO BACK AND NECK Acetaminophen (Tylenol) 325 Mg Tab 650 MG PO Q4H PRN PRN PAIN (Reported) Acetaminophen/Hydrocodone (Hydrocodone/Acetaminophen 7.5-325 mg) 1 Tab Tab 1 TAB PO Q4H PRN PRN PAIN (Reported) Hydroxyzine HCl (Hydroxyzine HCl) 50 Mg Tab 50 MG PO TID PRN PRN ANXIETY ( Reported) Allergies Coded Allergies: Metronidazole (Verified Allergy, Unknown, 02/16/13) Sulfa Drugs (Unverified Allergy, Unknown, 02/16/13) JAMARCUS FERNANDO DO Jan 13, 2017 18:24
== END 2017-01-13 14:40 | disposition home or self-care (01) | DRG 194 ==
LOC: M ED 14:02 → M ED INP 17:35 → EEVIPCON 17:35 → M MS5PR 19:56
PROVIDERS: ADMIT Internal Medicine Nephrology; ATTEND Internal Medicine
DX: J10.00 Influenza due to other identified influenza virus with unspecified type of pneumonia (principal); D58.9 Hereditary hemolytic anemia, unspecified; E87.3 Alkalosis; C79.51 Secondary malignant neoplasm of bone; J18.9 Pneumonia, unspecified organism; F90.8 Attention-deficit hyperactivity disorder, other type; I10 Essential (primary) hypertension; M79.7 Fibromyalgia; E83.42 Hypomagnesemia; E78.5 Hyperlipidemia, unspecified; E83.39 Other disorders of phosphorus metabolism; E87.6 Hypokalemia; F41.8 Other specified anxiety disorders; Z79.82 Long term (current) use of aspirin; Z79.899 Other long term (current) drug therapy; Z88.2 Allergy status to sulfonamides; Z88.8 Allergy status to other drugs, medicaments and biological substances; Z90.710 Acquired absence of both cervix and uterus; Z87.891 Personal history of nicotine dependence; Z98.51 Tubal ligation status

== ENCOUNTER → 2017-01-08 | Outpatient (CLI) | payer MEDICARE, MEDICAID ==
[~2017-01-08] MED LIST changes: +AMIL5TA PO; +AMLO10TA2 PO; +AMLO5TAB2 PO; +ASPI1TAB PO; +ATEN100T PO; +ATOM60CA PO; +BICI30EL PO; +CALCTAB68 PO; +CEFD1CAP8 PO; +CEFD300CAP PO; +CHLO25TA PO; +COZA1TAB PO; +DRIS50002 PO; +FISH1000 PO; +FLUO40CA PO; +GABA300C3 PO; +HYDR-3716 PO; +HYDR-4266 PO; +HYDR-4274 PO; +HYDR25TA PO; +LIDO1CRE2 TOP; +LIDO4CRE2 TOP; +LIDO5TD TD; +LOSA100T36 PO; +LOSA25TA8 PO; +MAGN64TASA PO; +MAPA325T2 PO; +NEUTPW PO; +POTA20TA PO; +POTA50TAB PO; +SIMV20TA2 PO; +SODI325T9 PO; +TIZA4CAP3 PO; +TYLE325T5 PO; +ZETI10TA2 PO
[2017-01-08 17:42] LABS: ANION GAP 12 MEQ/L (8-16); BLOOD UREA NITROGEN 8 MG/DL (7-18); CARBON DIOXIDE LEVEL 22 MEQ/L (21-32); CHLORIDE LEVEL 95 MEQ/L (98-107); CREATININE FOR GFR 0.73 MG/DL (0.55-1.02); GLOMERULAR FILTRATION RATE > 60.0 (>45); GLUCOSE, FASTING 96 MG/DL (80-110); MAGNESIUM LEVEL 1.5 MG/DL (1.8-2.4); PHOSPHORUS LEVEL 2.3 MG/DL (2.5-4.9); POTASSIUM SERUM 3.4 MEQ/L (3.5-5.1); SODIUM LEVEL 129 MEQ/L (136-145)
== END ==
LOC: M LRY 11:00
PROVIDERS: ATTEND Internal Medicine
DX: D58.9 Hereditary hemolytic anemia, unspecified (principal)

== ENCOUNTER → 2017-01-08 | Outpatient (CLI) | payer MEDICARE, MEDICAID ==
--- NOTE | 2017-01-08 13:34 | REP ---
Clinical: Wheezing. Technique: PA and Lateral. Comparison: 12/27/2016 Findings: Bibasilar infiltrates (Left > Right). Mediastinum and cardiac silhouette are normal. No effusion or pneumothorax. Impression: Multifocal lower lobe pneumonia Signed by Mik Rolon MD 01/08/2017 01:25 P
== END ==
LOC: M LRY 12:58
PROVIDERS: ATTEND Nurse Practitioner Family
DX: J18.9 Pneumonia, unspecified organism (principal)

== ENCOUNTER → 2017-01-14 | Outpatient (REF) | payer MEDICARE, MEDICAID ==
[~2017-01-14] MED LIST changes: +CEFD1CAP8 PO; +HYDR-4266 PO; +K-TA10TA PO; +LEVA750T PO; +LIDO1CRE2 TOP; +LOSA25TA8 PO; +MUCI600T34 PO; +TYLE325T5 PO
== END ==
LOC: M LAB REF 12:57
PROVIDERS: ATTEND Internal Medicine Medical Oncology
DX: Z01.818 Encounter for other preprocedural examination (principal); E83.52 Hypercalcemia

== ENCOUNTER → 2017-01-21 | Outpatient (CLI) | payer MEDICARE, MEDICAID ==
[~2017-01-21] MED LIST changes: -K-TA10TA PO
== END ==
LOC: M RAD 11:34
PROVIDERS: ATTEND Internal Medicine Medical Oncology
DX: C79.51 Secondary malignant neoplasm of bone (principal)

== ENCOUNTER → 2017-01-28 | Outpatient (CLI) | payer MEDICARE, MEDICAID ==
[~2017-01-28] MED LIST changes: +K-TA10TA PO
--- NOTE | 2017-01-29 09:55 | REP ---
PET/CT: HISTORY: Metastatic disease to the skeleton and left axillary nodes on imaging studies. Unknown primary. COMPARISONS: CT study of the chest January 08, 2017, radionuclide bone scan January 01, 2017, adult bone survey December 27, 2016, and CT scan of the brain December 27, 2016. TECHNIQUE: 80 minutes following the intravenous injection of a 7.8 mCi dose of F-18 FDG, three-dimensional PET scintigraphy is acquired from the skull base to the proximal thighs. Triplanar noncontrast CT scanning is acquired through the same anatomic range for attenuation correction, and image registration with scan parameters optimized to minimize radiation exposure to the patient. PET scintigraphy and CT datasets were fused and displayed on a workstation with multiplanar and projection display capability. PET/CT FINDINGS: There is hypermetabolic uptake throughout widespread almost diffuse skeletal metastatic lesions. Standard uptake values in these metastatic lesions range up to 18.5. There is hypermetabolic uptake in the previously identified left axillary lymphadenopathy, maximum standard uptake value here is 13.0. There are four or five hypermetabolic left axillary lymph nodes. There is mildly hypermetabolic uptake in a right subcarinal lymph node in the mediastinum with standard uptake value 6.6. There is a small right hilar node with standard uptake value 5.0 which is also mildly hypermetabolic. No pulmonary parenchymal hypermetabolic uptake is seen. There are small bilateral pleural effusions left greater than right. These have increased in size. There is a mottled pattern of FDG distribution in the pleural spaces bilaterally consistent with pleural involvement. There is bilateral nipple FDG uptake. This is a common normal variant. It is slightly more prominent on the left. In the upper abdomen, there is a hypermetabolic celiac axis lymph node. Maximum standard uptake value in this node is 9.5. The lymph node measures 1.1 cm. There is hypermetabolic uptake in the adjacent even and smaller lymph node in the celiac axis to the right of midline. No other hypermetabolic abdominal or pelvic uptake is seen. No abnormal hepatic or splenic uptake is seen. No adrenal uptake is observed. IMPRESSION: Widespread metastatic pattern with the extensive skeletal uptake, bilateral pleural disease and radha uptake in the left axillary, celiac axis, and right hilar and subcarinal lymph node distributions. The pattern of disease distribution is compatible with breast malignancy although no primary site is identified. There is only slightly asymmetric uptake in the nipple on the left compared to the right. If histology has not yet been obtained, ultrasound guided left axillary lymph node biopsy could be considered. Also thoracentesis may yield results. Signed by Silvano Rodriguez MD 01/29/2017 05:36 P
== END ==
LOC: M RAD 12:32
PROVIDERS: ATTEND Internal Medicine Medical Oncology
DX: C79.51 Secondary malignant neoplasm of bone (principal); R91.8 Other nonspecific abnormal finding of lung field; R93.8 Abnormal findings on diagnostic imaging of other specified body structures; R92.8 Other abnormal and inconclusive findings on diagnostic imaging of breast
CPT/HCPCS: 78815; A9552

== ENCOUNTER 2017-01-30 11:26 | Inpatient (IN) | payer MEDICARE, MEDICAID ==
[~2017-01-30] VITALS: Ht 165.1 cm; Wt 81.0 kg
[~2017-01-30 11:26] MED LIST changes: -K-TA10TA PO; +LIDOCAINE 5% (LIDODERM) PATCH TD SCH
[2017-01-30] MEDS ORDERED: K-TA10TA PO (11:48)
[2017-01-30 12:54] LABS: BASO % 0.4 % (0.0-1.0); EOS # 0.1 K/mm3 (0.0-0.50); EOS % 1.1 % (0.0-3.0); LARGE UNSTAINED CELL # 0.1 K/mm3 (0.0-0.4); LARGE UNSTAINED CELL % 0.9 % (0.0-4.0); LYMPH % 21.6 % (24.0-44.0); MEAN CORPUSCULAR HEMOGLOBIN 27.2 pg (27.0-33.0); MEAN CORPUSCULAR HGB CONC 32.8 g/dl (32.0-36.5); MONO # 0.4 K/mm3 (0.0-0.8); MONO % 4.3 % (0.0-5.0); NEUTROPHILS # 6.7 K/mm3 (1.8-7.7); NEUTROPHILS % 71.6 % (36.0-66.0); PLATELET COUNT, AUTOMATED 448 k/mm3 (150-450); RED CELL DISTRIBUTION WIDTH 14.3 % (11.5-14.5); WHITE BLOOD COUNT 9.4 K/mm3 (4.0-10.0)
[2017-01-30 13:06] LABS: ANION GAP 12 MEQ/L (8-16); BLOOD UREA NITROGEN 7 MG/DL (7-18); CALCIUM LEVEL 12.8 MG/DL (8.8-10.2); CARBON DIOXIDE LEVEL 25 MEQ/L (21-32); CHLORIDE LEVEL 99 MEQ/L (98-107); CREATININE FOR GFR 1.03 MG/DL (0.55-1.02); GLOMERULAR FILTRATION RATE 57.3 (>45); GLUCOSE, FASTING 103 MG/DL (80-110); POTASSIUM SERUM 3.6 MEQ/L (3.5-5.1); SODIUM LEVEL 136 MEQ/L (136-145)
[2017-01-30] MEDS ORDERED: NS 1,000 ML IV ONE (13:15)
--- NOTE | 2017-01-30 13:30 | REP ---
Chest x-ray: Two views. History: Dizziness. Comparison chest x-ray January 08, 2017. Findings: There are small bilateral pleural effusions. Heart is not felt to be enlarged. Lung hassan are clear. Pulmonary vasculature is not increased. There is a pathologic fracture of the posterior fifth rib on the right and there are radiolucencies involving two of the left ribs and the right scapula suggesting bony metastatic disease. Thoracic vertebral body heights are preserved. Impression: Small bilateral pleural effusions. Multiple radiolucent bone lesions in the skeleton consistent with skeletal metastatic disease. No acute pulmonary infiltrate. Signed by Silvano Rodriguez MD 01/30/2017 02:05 P
[2017-01-30] MEDS ORDERED: hydrOXYzine 50 MG TAB PO PRN (16:00)
[2017-01-30] MEDS: PERCOCET 5MG/325MG TAB PO PRN (16:23)
[2017-01-30] MEDS: ONDANSETRON 4MG/2ML VIAL (J2405) IV PRN ×2 (16:23→22:54)
[2017-01-30] MEDS: NS 1,000 ML IV SCH ×2 (16:31→21:20)
--- NOTE | 2017-01-30 17:09 | HPE ---
DATE OF ADMISSION: 01/30/2017 PRIMARY CARE PROVIDER: Dr. Welch. ONCOLOGIST: Dr. Moeller. HISTORY OF PRESENT ILLNESS: This patient is a 66-year-old female with a past medical history significant for metastatic cancer with unknown primary, fibromyalgia, hypertension, dyslipidemia, who presented to [facility] on 01/30/2017, with intermittent altered mental status and visual hallucinations, and generalized weakness. The patient stated since yesterday afternoon while the patient was resting, the patient started having altered mental status noted by the family member, and the symptoms were intermittent and without any specific triggers. Yesterday night, the patient started having visual hallucinations. The patient stated she saw a man wearing armor standing right in the middle of her room, and she knows that those are not real, and the visual hallucinations resolved spontaneously. Due to concern for her worsening symptoms, the patient was brought to [facility] by family member for further evaluation. The patient also noted to have extremely dry mouth, and complaining about vomiting with biliary juice without blood. The patient also had uncontrolled extremity shaking. Those symptoms resolved while the patient was in the emergency room. The patient's last bowel movement was two days ago, but the patient does complain about bone pain in the vertebral spine where she has a bone with cancer metastasis. Denied any associated symptoms. In the emergency room, the patient was started on intravenous (IV) fluid and hospitalist team was called for admission. The patient has recent hospitalization for a similar presentation. The patient actually from 12/27 to 01/05, so for significant hypercalcemia. At that time, the patient was noted to have metastatic bone lesion, but no primary was determined. Then after discharge, the patient is being followed with Dr. Moeller. PET scan was done on 01/28/2017, that showed extensive tumor metastasis. The patient stated she does not have any significant family history of cancer. The patient had a mammogram done in April 2016, and the results did not show any finding for cancer. ALLERGIES: 1. FLAGYL. 2. SULFA. PAST MEDICAL HISTORY: 1. Hypertension. 2. Dyslipidemia. 3. Metastatic cancer with unknown primary. 4. Frequent hypercalcemia. 5. Frequent altered mental status change with hallucinations caused by hypercalcemia. 6. History of constipation. PAST SURGICAL HISTORY: 1. Hysterectomy. 2. Appendectomy. 3. Tubal ligation. SOCIAL HISTORY: The patient was a former smoker. The patient quit in 1979. The patient smoked approximately 15 years. Drinks occasionally. Denies any recreational drug use. The patient is a FULL CODE. REVIEW OF SYSTEMS: GENERAL: Denies any fever or chills. HEENT: No vision changes. No auditory changes. CARDIOVASCULAR: Denies any chest pain or palpitations. RESPIRATORY: Denies any shortness of breath or cough or sputum production. GASTROINTESTINAL (GI): The patient does have episode of vomiting; yellowish biliary juice was found in the vomit and no blood noted. No abdominal pain. Last bowel movement is two days ago. Denies any diarrhea. MUSCULOSKELETAL: Chronic pain in the lower back due to bone metastasis. NEUROLOGIC: Has a diagnosis of fibromyalgia. Denies any decrease of sensation. Denies any weakness. PSYCHIATRIC: Started having intermittent hallucinations with altered mental status frequently in the past few months. OBJECTIVE: VITAL SIGNS: Temperature is 98.5, pulse is 78, respiratory rate is 20, blood pressure sitting is 124/64, supine is 140/69, standing is 140/67. Pulse oximetry is 94% on room air. GENERAL: No sign of acute distress. Only a facial grimace when she tries to use her lower back or vertebral joints. The patient is alert, awake, and oriented to place, time, and situation. HEENT: Normocephalic, atraumatic. Extraocular motor grossly intact. CARDIOVASCULAR: Positive S1, S2. Regular rate. LUNGS: Clear to auscultation bilaterally. ABDOMEN: Obese, soft, nontender, nondistended. Bowel sounds present. No rebound, no guarding. MUSCULOSKELETAL: No lower extremity edema. No sign of cyanosis. FEMALE BREAST EXAM: No skin color changes, no nipple discharge. However, the patient has some tender palpable nodular findings mainly at the left breast located at the inferomedial part of the breast and inferolateral part of the breast. No nipple discharge is noted. LABORATORY DATA: WBC 9.4, hemoglobin 12.1, hematocrit 36.9, platelet count 448. Sodium is 136, potassium 3.6, chloride 99, carbon dioxide 25, BUN 7, creatinine 1.03. GFR is 57.3, fasting glucose 103. Calcium is 12.8. Ionized calcium is 6.3. Total CK is 22. Troponin I is less than 0.02. IMAGING: Chest x-ray: Small bilateral pleural effusions. Multiple radiolucent bone lesions in the skeleton consistent with skeletal metastatic disease. No acute pulmonary infiltrate. Mammogram on 04/29/2016: The results showed Bi-RADS category 2 mammogram, benign findings. There are scattered fibroglandular densities. No evidence of cancer on this mammogram. PET scan done on 01/28/2017, shows widespread metastatic pattern with extensive skeletal uptake, bilateral pleural disease, radha uptake in the left axillary, celiac axis and right hilar and subcarinal lymph node distribution. The pattern of the disease distribution is compatible with a breast malignancy, although no primary site is identified. There is only slight asymmetric uptake in the nipple on the left compared to the right. ASSESSMENT AND PLAN: 1. Hypercalcemia, most likely secondary to the bone metastasis. The patient will be admitted to the medical surgical floor under inpatient status. The patient was started on aggressive intravenous (IV) hydration running at 200 mL per hour. We will follow, and the patient will also get one dose of alendronate acid 4 mg times one, and the patient is also getting started on calcitonin 300 units subcutaneous every 12 hours. We will check with basic metabolic panel (BMP) every six hours. 2. Metastatic cancer with unknown primary. I had a chance to discuss with Dr. Moeller. He stated that once the patient is stabilized, the patient may benefit from axillary lymph node biopsy. Unfortunately, during the weekend, we may not have the capacity to perform the test, and in the next few days we will try to stabilize the patient. I also told the patient that patient may require good functional capacity in order to start chemotherapy, and even with chemotherapy, the goal for chemotherapy is not for complete eradication of the disease. The patient expressed understanding. Currently the patient is FULL CODE. 3. Acute kidney injury. The patient started to have slightly increased creatinine, and there is decreased glomerular filtration rate (GFR). From the physical exam, the patient is very dehydrated. The patient will be receiving IV fluid. We will follow intake, output and daily weight. 4. History of fibromyalgia. The patient is on gabapentin. 5. Hypertension. Continue on Norvasc. Losartan is on hold due to the acute kidney injury. 6. Deep venous thrombosis (DVT) prophylaxis. The patient is on Lovenox.
[2017-01-30 18:00] VITALS: BP 139/73
[2017-01-30] MEDS ORDERED: ZOLEDRONIC ACID 4 MG in D5W 100 ML IV ONE (18:00)
[2017-01-30 18:38] LABS: ANION GAP 11 MEQ/L (8-16); BLOOD UREA NITROGEN 6 MG/DL (7-18); CALCIUM LEVEL 11.7 MG/DL (8.8-10.2); CARBON DIOXIDE LEVEL 23 MEQ/L (21-32); CHLORIDE LEVEL 104 MEQ/L (98-107); CREATININE FOR GFR 0.84 MG/DL (0.55-1.02); GLOMERULAR FILTRATION RATE > 60.0 (>45); GLUCOSE, FASTING 85 MG/DL (80-110); POTASSIUM SERUM 3.7 MEQ/L (3.5-5.1); SODIUM LEVEL 138 MEQ/L (136-145)
[2017-01-30] MEDS: ASPIRIN 81 MG ENTERIC TAB PO SCH (18:38)
[2017-01-30] MEDS ORDERED: CALCITONIN SALMON (MIACALCIN) 400INTERNATIONAL UNITS/2ML INJ (J0630) SQ SCH (21:00)
[2017-01-30] MEDS: **NOTE PATIENT COMMENT** MISC XX SCH (21:00)
[2017-01-30] MEDS: OMEGA-3 1050MG CAPSULE PO SCH (21:20)
[2017-01-30] MEDS: SIMVASTATIN 20 MG TAB PO SCH (21:21)
[2017-01-30] MEDS: EZETIMIBE 10 MG TAB (ZETIA) PO SCH (21:21)
[2017-01-30] MEDS: GABAPENTIN 300 MG CAP PO SCH (21:22)
[2017-01-30] MEDS: ATENOLOL 50 MG TAB PO SCH (21:22)
[2017-01-30 22:00] VITALS: BP 132/67
[2017-01-31 00:36] LABS: ANION GAP 9 MEQ/L (8-16); BLOOD UREA NITROGEN 7 MG/DL (7-18); CALCIUM LEVEL 10.6 MG/DL (8.8-10.2); CARBON DIOXIDE LEVEL 26 MEQ/L (21-32); CHLORIDE LEVEL 105 MEQ/L (98-107); CREATININE FOR GFR 0.78 MG/DL (0.55-1.02); GLOMERULAR FILTRATION RATE > 60.0 (>45); GLUCOSE, FASTING 88 MG/DL (80-110); POTASSIUM SERUM 3.1 MEQ/L (3.5-5.1); SODIUM LEVEL 140 MEQ/L (136-145)
[2017-01-31] MEDS: NS 1,000 ML IV SCH ×5 (02:43→21:19)
[2017-01-31 06:00] VITALS: BP 139/71
[2017-01-31 06:35] LABS: MEAN CORPUSCULAR HEMOGLOBIN 27.2 pg (27.0-33.0); MEAN CORPUSCULAR HGB CONC 32.4 g/dl (32.0-36.5); RED CELL DISTRIBUTION WIDTH 14.5 % (11.5-14.5); WHITE BLOOD COUNT 8.9 K/mm3 (4.0-10.0)
[2017-01-31 06:48] LABS: ANION GAP 11 MEQ/L (8-16); BLOOD UREA NITROGEN 5 MG/DL (7-18); CALCIUM LEVEL 9.6 MG/DL (8.8-10.2); CARBON DIOXIDE LEVEL 24 MEQ/L (21-32); CHLORIDE LEVEL 104 MEQ/L (98-107); CREATININE FOR GFR 0.81 MG/DL (0.55-1.02); GLOMERULAR FILTRATION RATE > 60.0 (>45); GLUCOSE, FASTING 118 MG/DL (80-110); POTASSIUM SERUM 3.1 MEQ/L (3.5-5.1); SODIUM LEVEL 139 MEQ/L (136-145)
[2017-01-31] MEDS ORDERED: POTASSIUM CHLORIDE 10 MEQ SR TABLET PO ONE (08:00)
[2017-01-31] MEDS ORDERED: MAGNESIUM CHLORIDE 64 MG TABCR (SLO MAG) PO SCH (09:00)
[2017-01-31] MEDS: ENOXAPARIN 40 MG/0.4 ML SYRINGE (J1650) SC SCH (09:41)
[2017-01-31] MEDS: FLUoxetine 20 MG CAP PO SCH (09:42)
[2017-01-31] MEDS: OMEGA-3 1050MG CAPSULE PO SCH ×3 (09:43→21:17)
[2017-01-31] MEDS: amLODIPine 10 MG TAB PO SCH (09:43)
[2017-01-31] MEDS: ATENOLOL 50 MG TAB PO SCH ×2 (09:43→21:18)
[2017-01-31 09:48] LABS: ALBUMIN 2.5 GM/DL (3.2-5.2); MAGNESIUM LEVEL 1.7 MG/DL (1.8-2.4); PHOSPHORUS LEVEL 1.9 MG/DL (2.5-4.9)
[2017-01-31 12:53] LABS: ALBUMIN 2.4 GM/DL (3.2-5.2); ANION GAP 11 MEQ/L (8-16); BLOOD UREA NITROGEN 5 MG/DL (7-18); CALCIUM LEVEL 8.9 MG/DL (8.8-10.2); CARBON DIOXIDE LEVEL 23 MEQ/L (21-32); CHLORIDE LEVEL 106 MEQ/L (98-107); CREATININE FOR GFR 0.72 MG/DL (0.55-1.02); GLOMERULAR FILTRATION RATE > 60.0 (>45); GLUCOSE, FASTING 93 MG/DL (80-110); MAGNESIUM LEVEL 1.5 MG/DL (1.8-2.4); POTASSIUM SERUM 3.4 MEQ/L (3.5-5.1); SODIUM LEVEL 140 MEQ/L (136-145)
[2017-01-31 14:00] VITALS: BP 136/69
--- NOTE | 2017-01-31 14:50 | IPN ---
DATE: 01/31/2017 SUBJECTIVE: Patient is seen and examined in the room today. Patient is still complaining about persistent nausea but no vomiting. Patient stated her hallucinations have resolved and there is no recurrence since admission. Patient's daughter stayed with the patient overnight and per daughter patient's confusion is improving. OBJECTIVE: VITAL SIGNS: Temperature 98.8, pulse 83, respirations 16, blood pressure 139/71, pulse oximetry 93% in room air. GENERAL: No sign of acute distress, alert and oriented times three. HEENT: Normocephalic, atraumatic. Extraocular motors grossly intact. CARDIOVASCULAR: Positive S1, S2, regular rate. LUNGS: Clear to auscultation bilaterally. ABDOMEN: Soft, nontender, nondistended. Bowel sounds present. No rebound, no guarding. EXTREMITIES: No edema, no cyanosis. LABORATORY DATA: WBC 8.9, hemoglobin 9.6, hematocrit 29.7, platelet count 352. Sodium 140, potassium 3.4, chloride 106, carbon dioxide 23, BUN 5, creatinine 0.72, GFR greater than 60, fasting glucose 93, calcium 8.9, phosphorous 2, magnesium 1.5. ASSESSMENT AND PLAN: 1. Hypercalcemia secondary to bone metastasis. Patient has been on intravenous (IV) fluid running at 200 mL/hour. Patient had a dose of alendronic acid times one and calcitonin. Patient's calcium level has been improving, now is in normal range. However, patient had similar treatment in the past and patient's calcium actually dropped below the normal range and to the extent that multiple supplements had to be given to the patient. Therefore, will continue to monitor patient's electrolytes every 6 hours. Currently, patient still has nausea, no vomiting. Patient's hallucinations and confusion have improved. 2. Metastatic cancer with no primary. Currently will try to stabilize patient for acute issue. Once patient is stable we will consider imaging guided biopsy from the axillary nodes. 3. Acute kidney injury (HAYDEE). With fluid hydration patient's glomerular filtration rate (GFR) returned to normal range. 4. History of fibromyalgia, on gabapentin. 5. Hypertension, on Norvasc. Blood pressure is in the satisfactory range. 6. History of constipation. 7. Deep venous thrombosis (DVT) prophylaxis on Lovenox.
[2017-01-31] MEDS: MAGNESIUM OXIDE 400 MG TAB (MAG-OX) PO SCH ×2 (16:28→21:18)
[2017-01-31 18:27] LABS: ANION GAP 10 MEQ/L (8-16); BLOOD UREA NITROGEN 4 MG/DL (7-18); CALCIUM LEVEL 8.5 MG/DL (8.8-10.2); CARBON DIOXIDE LEVEL 23 MEQ/L (21-32); CHLORIDE LEVEL 106 MEQ/L (98-107); GLOMERULAR FILTRATION RATE > 60.0 (>45); GLUCOSE, FASTING 92 MG/DL (80-110); MAGNESIUM LEVEL 1.5 MG/DL (1.8-2.4); PHOSPHORUS LEVEL 1.7 MG/DL (2.5-4.9); POTASSIUM SERUM 3.3 MEQ/L (3.5-5.1); SODIUM LEVEL 139 MEQ/L (136-145)
--- NOTE | 2017-01-31 19:43 | ECGEPIP ---
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
[2017-01-31] MEDS: **NOTE PATIENT COMMENT** MISC XX SCH (21:00)
[2017-01-31] MEDS: EZETIMIBE 10 MG TAB (ZETIA) PO SCH (21:17)
[2017-01-31] MEDS: GABAPENTIN 300 MG CAP PO SCH (21:17)
[2017-01-31] MEDS: SIMVASTATIN 20 MG TAB PO SCH (21:17)
[2017-01-31 22:00] VITALS: BP 139/80
[2017-01-31] MEDS: PERCOCET 5MG/325MG TAB PO PRN (23:29)
[2017-02-01 00:38] LABS: ANION GAP 13 MEQ/L (8-16); BLOOD UREA NITROGEN 4 MG/DL (7-18); CALCIUM LEVEL 8.6 MG/DL (8.8-10.2); CARBON DIOXIDE LEVEL 20 MEQ/L (21-32); CHLORIDE LEVEL 106 MEQ/L (98-107); CREATININE FOR GFR 0.71 MG/DL (0.55-1.02); GLOMERULAR FILTRATION RATE > 60.0 (>45); GLUCOSE, FASTING 104 MG/DL (80-110); MAGNESIUM LEVEL 1.5 MG/DL (1.8-2.4); PHOSPHORUS LEVEL 1.5 MG/DL (2.5-4.9); SODIUM LEVEL 139 MEQ/L (136-145)
[2017-02-01 00:47] LABS: POTASSIUM SERUM 2.7 MEQ/L (3.5-5.1)
[2017-02-01] MEDS ORDERED: MAG SULF 1GM/100ML (MAG RUN) 1 GM in APPROPRIATE DILUENT 1 EA IV ONE (01:00)
[2017-02-01] MEDS ORDERED: POTASSIUM CHLORIDE 10 MEQ SR TABLET PO ONE ×3 (01:00→12:00)
[2017-02-01] MEDS: NS 1,000 ML IV SCH ×2 (02:24→08:02)
[2017-02-01 06:00] VITALS: BP 128/72
[2017-02-01 06:20] LABS: MEAN CORPUSCULAR HEMOGLOBIN 27.9 pg (27.0-33.0); MEAN CORPUSCULAR HGB CONC 33.2 g/dl (32.0-36.5); MEAN CORPUSCULAR VOLUME 84.2 fl (80.0-96.0); RED CELL DISTRIBUTION WIDTH 14.6 % (11.5-14.5)
[2017-02-01 06:34] LABS: ANION GAP 11 MEQ/L (8-16); BLOOD UREA NITROGEN 3 MG/DL (7-18); CALCIUM LEVEL 8.6 MG/DL (8.8-10.2); CARBON DIOXIDE LEVEL 22 MEQ/L (21-32); CHLORIDE LEVEL 108 MEQ/L (98-107); CREATININE FOR GFR 0.69 MG/DL (0.55-1.02); GLOMERULAR FILTRATION RATE > 60.0 (>45); GLUCOSE, FASTING 92 MG/DL (80-110); MAGNESIUM LEVEL 1.9 MG/DL (1.8-2.4); PHOSPHORUS LEVEL 1.8 MG/DL (2.5-4.9); POTASSIUM SERUM 3.4 MEQ/L (3.5-5.1); SODIUM LEVEL 141 MEQ/L (136-145)
[2017-02-01] MEDS: FLUoxetine 20 MG CAP PO SCH (08:02)
[2017-02-01] MEDS: MAGNESIUM OXIDE 400 MG TAB (MAG-OX) PO SCH ×3 (08:02→22:16)
[2017-02-01] MEDS: ENOXAPARIN 40 MG/0.4 ML SYRINGE (J1650) SC SCH (08:03)
[2017-02-01] MEDS: OMEGA-3 1050MG CAPSULE PO SCH ×3 (08:03→21:00)
[2017-02-01] MEDS: ATENOLOL 50 MG TAB PO SCH ×2 (08:03→22:16)
[2017-02-01] MEDS: amLODIPine 10 MG TAB PO SCH (08:03)
[2017-02-01] MEDS: ASPIRIN 81 MG ENTERIC TAB PO SCH (08:03)
--- NOTE | 2017-02-01 13:37 | IPN ---
DATE OF VISIT: 02/01/2017 SUBJECTIVE: Patient seen and examined in the room today. Patient states her nausea and vomiting has been controlled. No more visual hallucinations since admission and confusion has been improving. The patient feels she is getting better. No overnight events reports. OBJECTIVE: VITAL SIGNS: Temperature 98.7, pulse 79, respirations 15, blood pressure 128/72, pulse oximetry 96% in room air. GENERAL: No signs of acute distress, alert and oriented times three. HEENT: Normocephalic, atraumatic. Extraocular motors grossly intact. CARDIOVASCULAR: Positive S1 and S2, regular rate. LUNGS: Clear to auscultation bilaterally. ABDOMEN: Soft, nontender, nondistended. Bowel sounds present. No rebound, no guarding. EXTREMITIES: No edema. No signs of cyanosis. LABORATORY DATA: WBC 9, hemoglobin 9.8, hematocrit 29.6, platelet count 379. Sodium 141, potassium 3.4, chloride 108, carbon dioxide 22, BUN 3, creatinine 0.69, GFR greater than 60, fasting glucose 92, calcium 8.6, phosphorous 1.8, magnesium 1.9. ASSESSMENT AND PLAN: 1. Hypercalcemia secondary to bone metastasis. The patient's calcium level has improved. The patient does not have significant hypocalcemia. Will continue to follow the patient's electrolytes. I will discontinue the IV fluids today. The patient's visual hallucinations and confusion have resolved. The patient's nausea has also been improving. 2. Metastatic cancer with no primary. The patient did have multiple axillary lymph nodes. I will schedule the patient for lymph node biopsy tomorrow. 3. Acute kidney injury. Resolved. Patient had fluid resuscitation since admission. 4. History of fibromyalgia. Continue on gabapentin. 5. Hypertension, on Norvasc. Blood pressure is in the satisfactory range. 6. History of constipation. 7. Deep venous thrombosis (DVT) prophylaxis on Lovenox. 8. Hypomagnesemia. Patient is on a scheduled magnesium supplement.
[2017-02-01 14:00] VITALS: BP 133/71
[2017-02-01] MEDS: ACETAMINOPHEN TAB 650MG DOSE (2X325MG) PO PRN (14:00)
[2017-02-01 18:12] LABS: MAGNESIUM LEVEL 1.8 MG/DL (1.8-2.4); PHOSPHORUS LEVEL 1.6 MG/DL (2.5-4.9)
[2017-02-01] MEDS: **NOTE PATIENT COMMENT** MISC XX SCH (21:00)
[2017-02-01 22:00] VITALS: BP 135/73
[2017-02-01] MEDS: EZETIMIBE 10 MG TAB (ZETIA) PO SCH (22:16)
[2017-02-01] MEDS: GABAPENTIN 300 MG CAP PO SCH (22:16)
[2017-02-01] MEDS: SIMVASTATIN 20 MG TAB PO SCH (22:16)
[2017-02-02 06:00] VITALS: BP 131/69
[2017-02-02 06:08] LABS: MEAN CORPUSCULAR HEMOGLOBIN 28.4 pg (27.0-33.0); MEAN CORPUSCULAR HGB CONC 34.3 g/dl (32.0-36.5); MEAN CORPUSCULAR VOLUME 82.9 fl (80.0-96.0); RED CELL DISTRIBUTION WIDTH 14.9 % (11.5-14.5); WHITE BLOOD COUNT 8.5 K/mm3 (4.0-10.0)
[2017-02-02 06:16] LABS: ANION GAP 10 MEQ/L (8-16); BLOOD UREA NITROGEN 4 MG/DL (7-18); CALCIUM LEVEL 8.3 MG/DL (8.8-10.2); CARBON DIOXIDE LEVEL 22 MEQ/L (21-32); CHLORIDE LEVEL 107 MEQ/L (98-107); CREATININE FOR GFR 0.63 MG/DL (0.55-1.02); GLOMERULAR FILTRATION RATE > 60.0 (>45); GLUCOSE, FASTING 92 MG/DL (80-110); MAGNESIUM LEVEL 1.9 MG/DL (1.8-2.4); PHOSPHORUS LEVEL 1.9 MG/DL (2.5-4.9); SODIUM LEVEL 139 MEQ/L (136-145)
[2017-02-02] MEDS: FLUoxetine 20 MG CAP PO SCH (08:39)
[2017-02-02] MEDS: amLODIPine 10 MG TAB PO SCH (08:39)
[2017-02-02] MEDS: MAGNESIUM OXIDE 400 MG TAB (MAG-OX) PO SCH ×3 (08:39→20:52)
[2017-02-02] MEDS: OMEGA-3 1050MG CAPSULE PO SCH (08:39)
[2017-02-02] MEDS: ENOXAPARIN 40 MG/0.4 ML SYRINGE (J1650) SC SCH (08:40)
[2017-02-02] MEDS: ATENOLOL 50 MG TAB PO SCH ×2 (08:40→20:51)
[2017-02-02] MEDS: ACETAMINOPHEN TAB 650MG DOSE (2X325MG) PO PRN (08:44)
[2017-02-02 09:12] LABS: INR 1.15
[2017-02-02 14:00] VITALS: BP 145/68
[2017-02-02] MEDS ORDERED: POTASSIUM CHLORIDE 10 MEQ SR TABLET PO ONE ×2 (16:30→21:00)
--- NOTE | 2017-02-02 16:39 | IPN ---
DATE: 02/02/2017 SUBJECTIVE: Patient is seen and examined in the room today. Patient's hallucinations and confusion show significant improvement since admission. Patient still has intermittent nausea but it is improved compared to the last few days. Patient still complains of severe lower back pain due to tumor metastasis. K-pad has shown some benefit. No overnight events reported. OBJECTIVE: VITAL SIGNS: Temperature 98.5, pulse 80, respirations 18, blood pressure 131/69, pulse oximetry 94% in room air. GENERAL: No sign of acute distress, alert and oriented times three. HEENT: Normocephalic, atraumatic. Extraocular motors grossly intact. CARDIOVASCULAR: Positive S1, S2, regular rate. LUNGS: Clear to auscultation bilaterally. ABDOMEN: Soft, nontender, nondistended. Bowel sounds present. No rebound, no guarding. MUSCULOSKELETAL: Severe tenderness to palpation, especially in the lower back. No lower extremity edema. No sign of cyanosis. LABORATORY DATA: WBC 8.5, hemoglobin 9.4, hematocrit 27.5, platelet count 363. Sodium 139, potassium 3, chloride 107, carbon dioxide 22, BUN 4, creatinine 0.63, GFR greater than 60, fasting glucose 92, calcium 8.3, phosphorous 1.9, magnesium 1.9. ASSESSMENT AND PLAN: 1. Metastatic cancer with unknown primary. I have discussed the case with patient's oncologist, Dr. Moeller. Previously, patient had multiple tumor markers performed and it will be beneficial to obtain a left axillary biopsy. Order was placed, however patient was not able to get the biopsy done today, it will tentatively be scheduled for tomorrow. 2. Hypercalcemia, secondary to bone metastasis. Initially, on the day of admission, patient had a calcium of 12.8 and patient had symptoms of visual hallucinations, confusion, and frequent nausea and vomiting, which all of those symptoms have improved since correction of patient's calcium. Currently, patient's calcium is monitored frequently. Now patient's calcium level is actually mildly hypocalcemic. Will continue to monitor hemoglobin and hematocrit. IV fluid has been stopped. Previously, patient only received one dose of calcitonin and one dose of zoledronic acid. 3. Hypokalemia. Will continue to monitor patient's potassium level and supplement as needed. 4. Hypomagnesemia. Patient is on magnesium supplement. Magnesium level has been within normal range. 5. Anemia. Currently asymptomatic. Patient has aggressive IV hydration for patient's hypercalcemia. Will monitor hemoglobin and hematocrit. Patient does not require blood transfusion at this moment and patient is asymptomatic. 6. History of fibromyalgia, on gabapentin. 7. Acute kidney injury, resolved after fluid resuscitation. 8. Hypertension, on Norvasc. 9. History of constipation. 10. Deep venous thrombosis (DVT) prophylaxis on Lovenox.
[2017-02-02] MEDS: GABAPENTIN 300 MG CAP PO SCH (20:51)
[2017-02-02] MEDS: SIMVASTATIN 20 MG TAB PO SCH (20:51)
[2017-02-02] MEDS: LOPERAMIDE 2 MG CAP PO PRN (20:52)
[2017-02-02] MEDS: ANEXSIA, NORCO 7.5MG/325MG TABLET(HYDROCODONE/APAP) PO PRN (20:53)
[2017-02-02] MEDS: **NOTE PATIENT COMMENT** MISC XX SCH (20:53)
[2017-02-02] MEDS: EZETIMIBE 10 MG TAB (ZETIA) PO SCH (20:53)
[2017-02-02 22:00] VITALS: BP 129/74
[2017-02-03 06:00] VITALS: BP 126/70
[2017-02-03 06:02] LABS: MEAN CORPUSCULAR HEMOGLOBIN 27.8 pg (27.0-33.0); MEAN CORPUSCULAR HGB CONC 33.6 g/dl (32.0-36.5); MEAN CORPUSCULAR VOLUME 82.7 fl (80.0-96.0); RED CELL DISTRIBUTION WIDTH 15.1 % (11.5-14.5); WHITE BLOOD COUNT 8.4 K/mm3 (4.0-10.0)
[2017-02-03 06:06] LABS: ANION GAP 9 MEQ/L (8-16); BLOOD UREA NITROGEN 5 MG/DL (7-18); CALCIUM LEVEL 8.1 MG/DL (8.8-10.2); CARBON DIOXIDE LEVEL 22 MEQ/L (21-32); CHLORIDE LEVEL 107 MEQ/L (98-107); GLOMERULAR FILTRATION RATE > 60.0 (>45); GLUCOSE, FASTING 82 MG/DL (80-110); MAGNESIUM LEVEL 2.1 MG/DL (1.8-2.4); POTASSIUM SERUM 3.5 MEQ/L (3.5-5.1); SODIUM LEVEL 138 MEQ/L (136-145)
[2017-02-03] MEDS: ANEXSIA, NORCO 7.5MG/325MG TABLET(HYDROCODONE/APAP) PO PRN ×3 (08:09→22:36)
[2017-02-03] MEDS: FLUoxetine 20 MG CAP PO SCH (08:10)
[2017-02-03] MEDS: ATENOLOL 50 MG TAB PO SCH ×2 (08:11→20:25)
[2017-02-03] MEDS: amLODIPine 10 MG TAB PO SCH (08:11)
[2017-02-03] MEDS: MAGNESIUM OXIDE 400 MG TAB (MAG-OX) PO SCH ×3 (08:11→20:24)
[2017-02-03] MEDS: ASPIRIN 81 MG ENTERIC TAB PO SCH (08:11)
[2017-02-03] MEDS ORDERED: LIDOCAINE 1% MDV 20ML VIAL As Ordered ONE (13:54)
[2017-02-03 14:15] VITALS: BP 125/75
--- NOTE | 2017-02-03 14:26 | REP ---
Clinical: Fever. Technique: PA and lateral. Comparison: 01/30/2017. Findings: Small bilateral pleural effusions and bibasilar atelectasis are essentially unchanged (left greater than right). Multiple likely pathologic rib fractures are identified and similar to prior examination. Mediastinum and cardiac silhouette stable within normal limits. No pneumothorax. Impression: Small bilateral pleural effusions and bibasilar atelectasis (left greater than right) similar to prior examination. Multiple bilateral pathologic rib fractures similar to prior examination. Signed by Mik Rolon MD 02/03/2017 02:17 P
--- NOTE | 2017-02-03 15:20 | IPNPDOC ---
Date Seen The patient was seen on 02/03/17. Progress Note SUBJECTIVE: Ms. Cates is a 67 year old female who presented with hypercalcemia and metastatic cancer of unknown primary. Upon evaluation this morning she states that she had no acute events overnight and slept well. She is to go for an axillary lymph node biopsy in the hopes of determining etiology of primary cancer. Patient did have a temperature last night, but currently is afebrile. Due to hindu reasons patient has made it known that she does not want a blood transfusion. Patient did have some questions about the biopsy procedure. Answered all of her questions to the best of my ability and upon completion of my evaluation patient noted that all of her questions were answered appropriately. OBJECTIVE PHYSICAL EXAMINATION: VITAL SIGNS: Please see below. GENERAL: Very pleasant female sitting in a chair next to her hospital bed, appears stated age, appears in no apparent distress; family are in the room at the time of evaluation HEENT: Atraumatic, normocephalic, PERRL, EOMI, oral mucosa appears mildly dry CARDIOVASCULAR: Regular rate and rhythm, normal S1 and S2, no murmurs, rubs, clicks RESPIRATORY: Clear to auscultation bilaterally, no wheeze, crackles, rhonchi ABDOMINAL: Soft, nontender, nondistended, bowel sounds appreciated EXTREMITIES: Peripheral pulses are appreciated bilaterally, trace edema is noted at the level of the silvestre on the right more so than the left, skin is warm , intact, dry NEUROLOGICAL: Cranial nerves II through XII appear grossly intact, moving all 4 extremities PSYCHOLOGICAL: Mood and affect appear appropriate, patient is pleasantly conversant LABORATORY DATA: Please see below. MICROBIOLOGY: Please see below. IMAGING: Chest x-ray FINDINGS: Small bilateral pleural effusions and bibasilar atelectasis are essentially unchanged pack left greater than right). Multiple likely pathologic rib fractures are identified and similar to prior examination. Mediastinum and cardiac silhouette stable with normal limits. No pneumothorax. IMPRESSION: Small bilateral pleural effusions and bibasilar atelectasis left greater than) similar to prior examination. Multiple bilateral pathologic rib fractures similar to prior examination. DVT prophylaxis ordered?: Lovenox 40 mg subcutaneous daily ASSESSMENT AND PLAN: This is a 67-year-old female who presents with hypercalcemia and metastatic cancer of unknown primary. PROBLEMS: 1. Metastatic cancer of unknown origin: We'll be obtaining axillary lymph node biopsy today. Pathology result is pending. 2. Fever: Patient had a temperature of 101.4 at 8:00 last evening. ESR was obtained today and was 126. CRP was obtained today was 5.83. Chest x-ray reveals no acute changes from prior examinations. Urinalysis was performed and showed WBCs 26, red blood cell 6, 3+ leukocyte esterase, trace ketones, 1+ protein. Started patient on cefdinir 300 mg twice a day for 7 days. 3. Hypercalcemia: Appears resolved. Patient's calcium is 8.1. 4. Hypertension: Patient remains on Norvasc and atenolol. 5. Depression: Patient remains on Prozac. 6. Dyslipidemia: Patient remains on Zocor. 7. Anxiety: Patient remains on Atarax. 8. Diarrhea: Patient has Imodium at her disposal as needed. 9. Neuropathy: Patient remains on gabapentin. 10. Nausea: Patient has Zofran at her disposal. She states that it works well. 11. Anemia: Patient's H&H is 9.5 and 28.3, respectively. After discussing results with patient she is indicated to me that due to hindu reasons she does not want to receive a blood transfusion. We will keep with her wishes. She is alert and oriented 3. 12. Acute metabolic encephalopathy with confusion and visual hallucinations secondary to hypercalcemia, resolved. DISPOSITION: Patient remains admitted to the medical surgical unit. Obtaining biopsy of an axillary lymph node today. Since patient had fever of 101.4 last evening have obtained additional suppository values and a urinalysis just reveals underlying urinary tract infection. Started patient on cefdinir 300 mg twice a day for 7 days. We'll reassess patient in the morning. corporate services manager has indicated in their notes that patient is stable to return home once medically cleared. VS, I&O, 24H, Fishbone Vital Signs/I&O Vital Signs Date Time Temp Pulse Resp B/P Pulse Ox O2 Delivery O2 Flow Rate FiO2 02/03/17 14:48 18 02/03/17 14:15 99.6 71 125/75 97 Room Air I&O- Last 24 Hours up to 6 AM 02/03/17 06:00 Intake Total 1140 ml Output Total 1000 ml Balance 140 ml Laboratory Data 24H LABS Laboratory Tests 2 02/03/17 04:54: Anion Gap 9, Blood Urea Nitrogen 5L, Creatinine 0.60, Sodium Level 138, Potassium Level 3.5, Chloride Level 107, Carbon Dioxide Level 22, Calcium Level 8.1L, Glomerular Filtration Rate > 60.0, Magnesium Level 2.1 02/03/17 10:50: Whole Blood Ionized Calcium 4.8 02/03/17 11:32: C-Reactive Protein, Quantitative 5.83H, Erythrocyte Sedimentation Rate 126H 02/03/17 12:44: Urine Amorphous Sediment , Urine Appearance HAZY, Urine Color YELLOW, Urine pH 7.0, Urine Specific [place] 1.010, Urine Protein 1+H, Urine Glucose (UA) NEGATIVE, Urine Ketones TRACEH, Urine Urobilinogen 0.2, Urine Bilirubin NEGATIVE , Urine Leukocyte Esterase 3+H, Urine Bacteria (Auto) NEGATIVE, Urine Blood NEGATIVE, Urine Calcium Carbonate Cryst(Auto) , Urine Calcium Oxalate Cryst ( Auto) , Urine Calcium Phosphate Raisa (Auto) , Urine Cellular Casts , Urine Cystine Crystals , Urine Granular Casts (Auto) , Urine Hyaline Casts (Auto) 0, Urine Leucine Crystals , Urine Mucus (Auto) SMALL, Urine Nitrite NEGATIVE, Urine Oval Fat Bodies (Auto) , Urine RBC (Auto) 6H, Urine Renal Epithelial Cells , Urine Sperm (Auto) , Urine Squamous Epithelial Cells 3, Urine Transitional Epithelial Cells , Urine Trichomonas (Auto) , Urine Triple Phosphate Cryst (Auto) , Urine Tyrosine Crystals , Urine Uric Acid Crystals ( Auto) , Urine WBC (Auto) 26H, Urine Waxy Casts (Auto) , Urine Yeast-Like Cells ( Auto) CBC/BMP Laboratory Tests 02/03/17 04:54 Calcium Level 8.1 L, Red Blood Count 3.42 L, Mean Corpuscular Volume 82.7, Mean Corpuscular Hemoglobin 27.8, Mean Corpuscular Hemoglobin Concent 33.6, Red Cell Distribution Width 15.1 H Microbiology Microbiology 02/03/17 Blood Culture, Received Pending 02/02/17 Gastrointestinal Tract Panel (PCR) - Final, Complete 02/03/17 Urine Culture, Received Pending LUANA HUSSEIN Feb 03, 2017 15:20 ALE PHILLIPS MD Feb 04, 2017 10:07
--- NOTE | 2017-02-03 17:01 | REP ---
ULTRASOUND GUIDED LEFT AXILLARY LYMPH NODE BIOPSY: The procedure was performed under the direct supervision of Dr. Alexander. The patient has a history of hypermetabolic uptake in the left axillary lymph node seen in a previous PET scan dated 01/28/2017. The risks and benefits of the procedure were explained to the patient and informed consent was obtained. The left axillary lymph node was localized using ultrasound guidance. The skin was prepped and draped in a sterile fashion. 1% Xylocaine was used as a local anesthetic. Using ultrasound guidance a 19/20-gauge coaxial needle biopsy system was inserted and then advanced into the lymph node. 7 core biopsy samples were obtained and sent to the lab. The patient tolerated the procedure well and there were no immediate complications. Reviewed by DEBRA Boothe 02/04/2017 04:14 PEdited and Signed by Christiano Alexander MD 02/05/2017 12:24 P
[2017-02-03 17:57] VITALS: BP 124/67
[2017-02-03] MEDS: CEFDINIR 300 MG CAP (OMNICEF) PO SCH (20:25)
[2017-02-03] MEDS: SIMVASTATIN 20 MG TAB PO SCH (20:25)
[2017-02-03] MEDS: EZETIMIBE 10 MG TAB (ZETIA) PO SCH (20:25)
[2017-02-03] MEDS: LOPERAMIDE 2 MG CAP PO PRN (20:25)
[2017-02-03] MEDS: **NOTE PATIENT COMMENT** MISC XX SCH (20:26)
[2017-02-03] MEDS: GABAPENTIN 300 MG CAP PO SCH (20:26)
[2017-02-03 22:00] VITALS: BP 123/60
[2017-02-04 02:00] VITALS: BP 143/77
[2017-02-04 06:00] VITALS: BP 134/71
[2017-02-04 07:24] LABS: MEAN CORPUSCULAR HEMOGLOBIN 27.6 pg (27.0-33.0); MEAN CORPUSCULAR HGB CONC 33.3 g/dl (32.0-36.5); MEAN CORPUSCULAR VOLUME 82.9 fl (80.0-96.0); RED CELL DISTRIBUTION WIDTH 15.3 % (11.5-14.5); WHITE BLOOD COUNT 7.6 K/mm3 (4.0-10.0)
[2017-02-04] MEDS ORDERED: CIPR250T3 PO (07:49)
[2017-02-04 08:13] LABS: ANION GAP 11 MEQ/L (8-16); BLOOD UREA NITROGEN 9 MG/DL (7-18); CALCIUM LEVEL 8.5 MG/DL (8.8-10.2); CARBON DIOXIDE LEVEL 22 MEQ/L (21-32); CHLORIDE LEVEL 103 MEQ/L (98-107); CREATININE FOR GFR 0.66 MG/DL (0.55-1.02); GLOMERULAR FILTRATION RATE > 60.0 (>45); GLUCOSE, FASTING 93 MG/DL (80-110); POTASSIUM SERUM 2.9 MEQ/L (3.5-5.1); SODIUM LEVEL 136 MEQ/L (136-145)
[2017-02-04] MEDS: POTASSIUM CHLORIDE 10 MEQ SR TABLET PO SCH ×3 (09:17→11:42)
[2017-02-04 09:18] VITALS: BP 134/71
[2017-02-04] MEDS: FLUoxetine 20 MG CAP PO SCH (09:18)
[2017-02-04] MEDS: MAGNESIUM OXIDE 400 MG TAB (MAG-OX) PO SCH (09:18)
[2017-02-04] MEDS: ATENOLOL 50 MG TAB PO SCH (09:18)
[2017-02-04] MEDS: CEFDINIR 300 MG CAP (OMNICEF) PO SCH (09:18)
[2017-02-04] MEDS: ENOXAPARIN 40 MG/0.4 ML SYRINGE (J1650) SC SCH (09:19)
[2017-02-04] MEDS: amLODIPine 10 MG TAB PO SCH (09:19)
[2017-02-04 09:39] LABS: IONIZED CALCIUM 4.6 MG/DL (4.5-5.3)
[2017-02-04 10:00] VITALS: BP 127/74
[2017-02-04] MEDS: ANEXSIA, NORCO 7.5MG/325MG TABLET(HYDROCODONE/APAP) PO PRN (11:43)
[2017-02-04] MEDS: LOPERAMIDE 2 MG CAP PO PRN (14:05)
[2017-02-04] MEDS ORDERED: ZOFR20TA PO (14:28)
[2017-02-04] MEDS ORDERED: IMOD2TAB16 PO (14:31)
--- NOTE | 2017-02-04 18:10 | DS.PDOC ---
Discharge Summary General Date of Admission Jan 30, 2017 at 15:46 Date of Discharge Feb 04, 2017 at 15:09 Primary Care Physician: Arturo Welch MD Attending Physician: ALE PHILLIPS MD Discharge Summary PROCEDURES PERFORMED DURING STAY: Ultrasound ultrasound-guided left axillary lymph node biopsy ADMITTING DIAGNOSES: 1. Hypercalcemia 2. Metastatic cancer with unknown primary 3. Acute kidney injury 4. History of fibromyalgia 5. Hypertension DISCHARGE DIAGNOSES: 1. Metastatic cancer 2. Hypercalcemia 3. Fever 4. Urinary tract infection 5. Anemia not requiring transfusion 6. Hypokalemia 7. Hypomagnesemia 8. Metabolic encephalopathy COMPLICATIONS/CHIEF COMPLAINT: Hypercalcemia;Metastatic Cancer. HISTORY OF PRESENT ILLNESS: Ms. Cates is a 67-year-old female who presented to [facility] on 01/30/2017 with intermittent altered mental status, visual hallucinations, and generalized weakness. Symptoms were first noticed by family the afternoon before presentation and were intermittent and without specific triggers. The night before presentation she developed visual hallucinations of a man wearing armor standing in the middle of her room. She realizes the hallucinations are not real and the results spontaneously. Family brought the patient to the hospital for concern for worsening symptoms. Patient was noted to have a dry mouth and complained of vomiting of biliary juice without blood. Admitted to the uncontrolled extremity shaking. All the symptoms resolved in the emergency department did complain of bone pain on her vertebral spine which she has burning with metastatic cancer. Patient was previously hospitalized from 12/27 to 01/05 with significant hypercalcemia. It was at that time that she was found to have metastatic bone lesion with no primary identified. After that discharge patient followed with Dr. Moeller. A PET scan was obtained on 01/28/2017 which showed extensive tumor metastasis. No significant family history of cancer. Mammogram in April 2016 was not significant. Hospitalist service was consulted and patient was admitted for further medical management. HOSPITAL COURSE: Intravenous fluid resuscitation was initiated, one-time dose of alendronate was given and patient was started on calcitonin every 12 hours to treat hypercalcemia. Labs were obtained. Patient was discussed with Dr. Moeller. Patient would benefit from axillary lymph node biopsy. Most of her medications were continued except for losartan secondary to acute kidney injury. Lovenox was provided for DVT prophylaxis. Electrolyte derangements ( potassium and magnesium) were supplemented as needed. Lymph node biopsy was performed. Patient did develop a fever, urinalysis was obtained and patient was found to have urinary tract infection. Treated appropriately while admitted and provided antibiotics, antinausea, antidiarrheal medicines at time of discharge. Patient's hospital course was uneventful and she was determined stable for discharge. DISCHARGE MEDICATIONS: Please see below. ALLERGIES: Please see below. PHYSICAL EXAMINATION ON DISCHARGE: VITAL SIGNS: Please see below. GENERAL: Very pleasant female who appears stated age laying in hospital bed in no apparent distress HEENT: Atraumatic, normocephalic, PERRL, EOMI, oral mucosa appears somewhat dry , nasal septum appears midline, patent nares NECK: Supple, trachea midline, no lymphadenopathy appreciated CARDIOVASCULAR EXAMINATION: Regular rate and rhythm, normal S1 and S2, no murmurs, rubs, clicks RESPIRATORY EXAMINATION: Clear to auscultation bilaterally, normal inspiratory and expiratory airway excursion, no wheeze, crackles, rhonchi ABDOMINAL EXAMINATION: Round, soft, nontender, nondistended, bowel sounds appreciated EXTREMITIES: Peripheral pulses appreciated bilaterally in upper and lower extremities, no appreciable edema, no visible rashes or lesions SKIN: Warm, dry, intact NEUROLOGICAL EXAMINATION: Cranial nerves II through XII grossly intact, moving all 4 extremities PSYCHIATRIC EXAMINATION: Mood and affect appear appropriate LABORATORY DATA: Please see below. IMAGING: Chest x-ray FINDINGS: There are small bilateral pleural effusions. Heart is not felt to be enlarged. Lungs hassan are clear. Pulmonary vasculature is not increased. There is a pathologic fracture of the posterior fifth rib on the right and there are radiolucencies involving tooth [on the right scapula suggesting bony metastatic disease. Thoracic vertebral body heights are preserved. IMPRESSION: Small bilateral pleural effusions. Multiple radiolucent bony lesions in the skeleton consistent with skeletal metastatic disease. No acute pulmonary infiltrate. Chest x-ray FINDINGS: Small bilateral pleural effusions and bibasilar atelectasis are essentially unchanged (left greater than). Multiple likely pathologic rib fractures are identified and similar to prior examination. Mediastinum and cardiac silhouette stable within normal limits. No pneumothorax. IMPRESSION: Small bilateral pleural effusions and bibasilar atelectasis (left greater than) similar to prior examination. Multiple bilateral pathologic rib fractures similar to prior examination. PROGNOSIS: Stable for discharge ACTIVITY: As tolerated DIET: No added salt DISCHARGE PLAN: Managing health at home. Improve health and wellness. DISPOSITION: 01 Home, Self-Care. DISCHARGE INSTRUCTIONS: 1. Follow-up appointment with Dr. Arturo Welch on 02/11/2017 at 11 AM 2. Appointment with Dr. Moeller on 02/02/2017 at 10:45 AM 3. Hold aspirin for 48 hours after biopsy ITEMS TO FOLLOWUP ON ON OUTPATIENT: 1. Immediate follow-up with medical oncologist and primary care provider within one week of hospital discharge 2. Avoid dehydration 3. Urinary tract infection 4. Electrolyte derangements (hypocalcemia, hypokalemia, hypomagnesemia) DISCHARGE CONDITION: Stable TIME SPENT ON DISCHARGE: Greater than 30 minutes. Vital Signs/I&Os Vital Signs Date Time Temp Pulse Resp B/P Pulse Ox O2 Delivery O2 Flow Rate FiO2 02/04/17 12:51 20 02/04/17 10:00 98.5 85 127/74 98 Room Air I&O- Last 24 Hours up to 6 AM 02/04/17 06:00 Intake Total 1080 ml Output Total 750 ml Balance 330 ml Laboratory Data Labs 24H Laboratory Tests 2 02/04/17 07:04: Anion Gap 11, Blood Urea Nitrogen 9#, Creatinine 0.66, Sodium Level 136, Potassium Level 2.9*L, Chloride Level 103, Carbon Dioxide Level 22, Calcium Level 8.5L, Glomerular Filtration Rate > 60.0 02/04/17 09:31: Magnesium Level 2.0, Whole Blood Ionized Calcium 4.6 CBC/BMP Laboratory Tests 02/04/17 07:04 Calcium Level 8.5 L, Red Blood Count 3.49 L, Mean Corpuscular Volume 82.9, Mean Corpuscular Hemoglobin 27.6, Mean Corpuscular Hemoglobin Concent 33.3, Red Cell Distribution Width 15.3 H 02/04/17 12:15 Microbiology Microbiology 02/03/17 Blood Culture - Preliminary, Resulted No growth after 24 hours . All specim... 02/02/17 Gastrointestinal Tract Panel (PCR) - Final, Complete 02/03/17 Urine Culture, Received Pending Discharge Medications Scheduled Amlodipine Besylate (Amlodipine Besylate) 10 Mg Tab 10 MG PO DAILY (Reported) Atenolol (Atenolol) 100 Mg Tab 100 MG PO BID (Reported) Atomoxetine Hydrochloride (Strattera) 60 Mg Cap 60 MG PO DAILY (Reported) Ciprofloxacin HCl (Ciprofloxacin HCl) 250 Mg Tab 250 MG PO BID Ezetimibe (Zetia) 10 Mg Tab 10 MG PO QHS (Reported) Fish Oil (Fish Oil) 1,000 Mg Cap 1,000 MG PO TID (Reported) Fluoxetine Hcl (Fluoxetine HCl) 40 Mg Cap 40 MG PO DAILY (Reported) Gabapentin (Gabapentin) 300 Mg Cap 300 MG PO QHS (Reported) Losartan Potassium (Losartan Potassium) 25 Mg Tab 25 MG PO DAILY (Reported) Magnesium Chloride (Mag64) 64 Mg Tabcr 64 MG PO DAILY (Reported) Potassium Chloride (K-Tabs) 10 Meq Tab 10 MEQ PO BID (Reported) Simvastatin (Simvastatin) 20 Mg Tab 20 MG PO QHS (Reported) Scheduled PRN Acetaminophen/Hydrocodone (Hydrocodone/Acetaminophen 7.5-325 mg) 1 Tab Tab 1 TAB PO Q4H PRN PRN PAIN (Reported) Hydroxyzine HCl (Hydroxyzine HCl) 50 Mg Tab 50 MG PO TID PRN PRN ANXIETY ( Reported) Loperamide Hcl (Imodium A-D) 2 Mg Tab 2 MG PO ASDIRECTED PRN PRN DIARRHEA Ondansetron HCl (Zofran) 4 Mg Tab 4 MG PO Q6HP PRN PRN NAUSEA Allergies Coded Allergies: Metronidazole (Verified Allergy, Unknown, 02/16/13) Sulfa Drugs (Unverified Allergy, Unknown, 02/16/13) LUANA HUSSEIN-Adina Feb 04, 2017 18:10
== END 2017-02-04 15:09 | disposition home or self-care (01) | DRG 515 ==
LOC: M ED 12:41 → M ED INP 15:46 → M MSPAV 17:14
PROVIDERS: ADMIT Internal Medicine; ATTEND General Practice
PROC: 07B63ZX Excision of Left Axillary Lymphatic, Percutaneous Approach, Diagnostic (ICD-10-PCS; principal; 2017-02-03)
DX: C79.51 Secondary malignant neoplasm of bone (principal); G93.41 Metabolic encephalopathy; N17.9 Acute kidney failure, unspecified; N39.0 Urinary tract infection, site not specified; C77.3 Secondary and unspecified malignant neoplasm of axilla and upper limb lymph nodes; E83.52 Hypercalcemia; E87.6 Hypokalemia; D64.9 Anemia, unspecified; M79.7 Fibromyalgia; I10 Essential (primary) hypertension; Z88.2 Allergy status to sulfonamides; Z88.8 Allergy status to other drugs, medicaments and biological substances; Z79.899 Other long term (current) drug therapy; C80.1 Malignant (primary) neoplasm, unspecified; E78.5 Hyperlipidemia, unspecified; Z87.891 Personal history of nicotine dependence

== ENCOUNTER → 2017-03-10 | Outpatient (REF) | payer MEDICARE, MEDICAID ==
[~2017-03-10] MED LIST changes: +CIPR250T3 PO; +GABA-282 PO; -GABA300C3 PO; +IMOD2TAB16 PO; +K-TA10TA PO; -LIDOCAINE 5% (LIDODERM) PATCH TD SCH; +ZOFR20TA PO
[2017-03-10 19:30] LABS: CARCINOEMBRYONIC ANTIGEN 3.1 NG/ML (<2.5)
== END ==
LOC: M LAB REF 16:41
PROVIDERS: ATTEND Internal Medicine Medical Oncology
DX: C50.919 Malignant neoplasm of unspecified site of unspecified female breast (principal)